=== PATIENT | female | born 1955 | race Caucasian/White ===

== ENCOUNTER 2016-12-14 18:48 | Inpatient (IN) | payer MEDICARE, MEDICAID ==
[~2016-12-14] VITALS: Ht 175.3 cm; Wt 109.0 kg
[~2016-12-14 18:48] MED LIST: ALEN70TA2 PO; ASCO250T7 PO; BISA10SU61 RC; BUPR150T12 PO; CARV6.25 PO; DOCU240C41 PO; DULO30CA50 PO; ERGO500050 PO; FERR325T39 PO; FEXO-106 PO; FLUT9.9S NS; HYDR453.3 EXT; INSLIS SUBQ; LACT10SO PO; LORA-302 PO; MAGN400O4 PO; MELA1TAB4 SL; MULT-1018 PO; MYCC EXTERNAL; NA P133E23 RC; NAPR220C16 PO; OXYC10TA8 PO; OXYC15TA73 PO; OXYC30TA77 PO; PANT40TA2 PO; POLY17PO6 PO; PROM25TA14 PO; QUET25TA73 PO; QUET50TA55 PO; SENN-133 PO; SYN75 PO; [UNRECOGNIZED DRUG - CODE] PO
--- NOTE | 2016-12-14 18:49 | ED.REPORT ---
HPI-General Illness Date of Service Dec 14, 2016 ED Provider: Bacilio Breaux DO A 61 year old female with a history of T12 paraplegia, hyperthyroidism, hypertension, UTI, muscle weakness, depression, type II diabetes, [place], ostomy bag, encephalopathy secondary to UTI, and episodes of similar symptoms is brought to the ED due to altered level of consciousness. Staff at the [facility] where the pt resides noticed this afternoon that she appeared to have a decreased level of consciousness and increased temperature. The pt has a GCS of 10 on arrival. She had a recent medication change, which staff believes may be related to the pt's symptoms. Pt is unable to provide a history. Nursing Notes Stated Complaint: ALTERED LOC Nursing Notes Reviewed: Yes Allergies: Coded Allergies: Contrast Media (Verified Allergy, Severe, 07/19/16) TAPE (Verified Allergy, Severe, 07/19/16) amoxicillin (Verified Allergy, Severe, 07/19/16) ceftriaxone (Verified Allergy, Severe, 07/19/16) cefuroxime (Verified Allergy, Severe, 07/19/16) cephalexin (Verified Allergy, Severe, 07/19/16) diazepam (Verified Allergy, Severe, 07/19/16) erythromycin base (Verified Allergy, Severe, 07/19/16) iodine (Verified Allergy, Severe, 07/19/16) metoclopramide (Verified Allergy, Severe, 07/19/16) metronidazole (Verified Allergy, Severe, 07/19/16) tizanidine (Verified Allergy, Severe, 07/19/16) Scheduled Alendronate Sodium (Fosamax) 70 Mg Tablet 70 MG PO QW Ascorbic Acid (Vitamin C) 250 Mg Tab.chew 250 MG PO BID Bupropion ER (Bupropion ER) 150 Mg Tablet.er 150 MG PO BID Carvedilol (Coreg) 6.25 Mg Tablet 6.25 MG PO BID Duloxetine (Duloxetine) 30 Mg Capsule.dr 30 MG PO DAILY Ergocalciferol (Vitamin D2) (Drisdol) 50,000 Unit Capsule 50,000 UNIT PO Q7D Ferrous Sulfate (Iron) 325 Mg Tablet 325 MG PO BID Fexofenadine (Fexofenadine) 180 Mg Tablet 180 MG PO DAILY Fluticasone Propionate (Flonase Allergy Relief) 50 Mcg/Actuation [place].susp 9.9 ML NS BID Insulin Aspart (NovoLOG U-100 Pen) 100 Unit/Ml Insuln.pen 1 SC QID Levothyroxine (Synthroid) 75 Mcg Tablet 75 MCG PO DAILY Melatonin/Pyridoxine (Melatonin Sublingual Tablet) 1 Each Tab.subl 5 MG SL HS Multivitamin (Multi Vitamin Daily) 1 Each Tablet 1 EACH PO DAILY Nystatin (Nystatin) 60 Applic/15 Gm Cream 1 APPLIC EXTERNAL BID Omeprazole (Omeprazole) 20 Mg Capsule.dr 20 MG PO DAILY Oxycodone ER (Oxycontin) 15 Mg Tab.er.12h 15 MG PO HS Oxycodone ER (Oxycontin) 30 Mg Tab.er.12h 30 MG PO QAM Polyethylene Glycol 3350 (Miralax) 17 Gm Powd.pack 17 GM PO DAILY Quetiapine Fumarate (Seroquel) 50 Mg Tablet 75 MG PO HS Sennosides (Senna) 8.6 Mg Tablet 8.6 MG PO BID Scheduled PRN Bisacodyl (Dulcolax Rectal) 10 Mg Supp.rect 10 MG RC DIRECTED PRN PRN For Constipation Dextran 70/Hypromellose/Pf (Artificial Tears Drops) 1 Each Droperette 1-2 DROP BOTH_EYES PRN dry eyes Docusate Calcium (Stool Softener) 240 Mg Capsule 240 MG PO BID PRN PRN For Constipation Hydrocortisone (Hydrocortisone) 453.6 Gm Cream..g. 1 APPLIC EXT WEEKLY PRN PRN rash Lactulose (Lactulose) 10 Gm/15 Ml Solution 45-60 ML PO BID PRN PRN For Constipation Lorazepam (Ativan) 0.5 Mg Tablet 0.5 MG PO QID PRN PRN For Anxiety Magnesium Hydroxide (Milk of Magnesia) 400 Mg/5 Ml Oral.susp 30 ML PO DIRECTED PRN PRN For Constipation Na Phos,M-B/Na Phos,Di-Ba (Fleet Enema) 133 Ml Enema 133 ML RC PRN For Constipation Naproxen Sodium (Naproxen Sodium) 220 Mg Capsule 220 MG PO BID PRN PRN For Pain Promethazine (Promethazine) 25 Mg Tablet 25 MG PO Q6H PRN PRN For Nausea Simethicone (Bicarsim Forte) 125 Mg Tablet 125-250 MG PO ACHS PRN PRN gas oxyCODONE (oxyCODONE) 10 Mg Tablet 20 MG PO QID PRN PRN For Pain General Time Seen by MD: 18:49 Chief Complaint Other (Change LOC) Hx Obtained From: EMS Arrived By: Ambulance Sudden in Onset?: No Onset Occurred: 5 - 8 hours ago Symptom Duration: Since onset Recent Healthcare: Recent doctor visit, Recent hospitalization Similar Sx Previous: Yes Past Medical History Past Medical History Notes: Full code Past Medical History T12 paraplegia hyperthyroidism UTI muscle weakness depression encephalopathy secondary to UTI Reports: Asthma, Hypertension Reports: Thyroid disease Past Surgical History Reports: Back/neck surgery Smoking History Former Smoker Social History lives at [facility] Ambulatory Status Wheelchair Review of Systems Unable to Obtain ROS Patient condition Physical Exam Vital Signs Vital Signs Date Time Temp Pulse Resp B/P Pulse Ox O2 Delivery O2 Flow Rate FiO2 12/14/16 21:21 37 65 20 147/81 98 Room Air 12/14/16 19:05 36.9 80 16 154/78 98 Room Air Initial VS: Reviewed General/Constitutional: Awake urine has large amount of sediment and cloudiness ostomy bag with dark green output Head / Eyes: Atraumatic, Normocephalic, PERRL, EOMI ENT: Atraumatic, Airway patent, Mucous membranes moist Neck: Atraumatic Respiratory / Chest: Breath sounds = bilat Cardiovascular: Heart rate NL, Regular rhythm, Heart sounds NL Abdomen: Atraumatic, Soft no obvious abdominal pain or distension Back: Atraumatic Upper Extremities Upper Extremity / MS: Atraumatic Lower Extremity / Pelvis / MS: Atraumatic, No edema Skin: Color NL, Warm, Dry 8 cm x 9 cm sacral ulcer right ischial tuberosity full thickness ulceration no bone visible good granulation tissue in wound base Neurologic: No sensory deficits Mental Status: Positive: Disoriented to place Psychiatric: Affect NL minimally responsive to commands responds to pain stimulus Interpretation & Diagnostics Lab Results Interpretation Result Diagram: 12/14/16 1900 12/14/16 1900 Test 12/14/16 19:00 White Blood Count 17.0th/mm3 (3.8-10.1) Red Blood Count 5.01mil/mm3 (3.90-5.20) Hemoglobin 13.1g/dL (12.0-15.6) Hematocrit 40.5% (35.0-46.0) Mean Corpuscular Volume 80.8fL (81-100) Mean Corpuscular Hemoglobin 26.1pg (27.0-35.0) Mean Corpuscular Hemoglobin Concent 32.3% (32.0-37.0) Red Cell Distribution Width 16.0% (12.3-15.4) Platelet Count 579bil/L (150-400) Neutrophils (%) (Auto) 82.2% (40-74) Lymphocytes (%) (Auto) 11.3% (14-46) Monocytes (%) (Auto) 5.5% (4-12) Eosinophils (%) (Auto) 0.2% (0-5) Basophils (%) (Auto) 0.2% (0-3) Hold Purple Top Tube Received (Received) Prothrombin Time 12.0sec (8.1-12.5) Prothromb Time International Ratio 1.12ratio Hold Blue Top Tube Received (Received) Urine Color Yellow (YELLOW) Urine Appearance Hazy (CLEAR,HAZY) Urine pH 6.0 (5.0-8.0) Urine Specific [place] 1.025 (1.003-1.035) Urine Protein Tracemg/dL (NEG,TRACE) Urine Glucose (UA) Negativemg/dL (NEGATIVE) Urine Ketones Tracemg/dL (NEGATIVE) Urine Occult Blood Moderate (NEGATIVE) Urine Nitrite Positive (NEGATIVE) Urine Bilirubin Negative (NEGATIVE) Urine Urobilinogen Normalmg/dL (NORMAL) Urine Leukocyte Esterase Large (NEGATIVE) Urine RBC 3-10/hpf (0-2) Urine WBC >50/hpf (0-5) Urine Epithelial Cells Moderate/hpf (NONE-MOD) Urine Crystals None seen (NONE SEEN) Urine Bacteria Many/hpf (NONE-FEW) Urine Hyaline Casts None/lpf (NONE) Urine Granular Casts None seen (NONE SEEN) Urine Waxy Casts None seen (NONE SEEN) Urine Red Blood Cell Casts None seen (NONE SEEN) Urine White Blood Cell Casts None seen (NONE SEEN) Urine Mucus None seen (None Seen) Urine Trichomonas None seen (NONE SEEN) Urine Yeast None (NONE SEEN) Urinalysis Comment None Urine Culture Reflexed Indicated Hold Urine Received (Received) Sodium Level 147mEq/L (134-144) Potassium Level 3.9mEq/L (3.5-5.2) Chloride Level 105mEq/L (97-108) Carbon Dioxide Level 21mmol/L (18-29) Blood Urea Nitrogen 34mg/dL (8-27) Creatinine 1.43mg/dL (0.57-1.00) Estimat Glomerular Filtration Rate 53mL/min (>59) Glucose Level 152mg/dL (60-99) Lactic Acid Level 1.4mmol/L (0.4-2.0) Calcium Level 9.9mg/dL (8.5-10.1) Total Bilirubin 0.3mg/dL (0.0-1.2) Aspartate Amino Transf (AST/SGOT) 17U/L (0-50) Alanine Aminotransferase (ALT/SGPT) 11U/L (0-32) Alkaline Phosphatase 125U/L (25-165) Total Protein 8.5g/dL (6.4-8.4) Albumin 3.8g/dL (3.4-5.0) Hold [place] Top Tube Received (Received) Hold [place] Top Tube Received (Received) Alcohol, Quantitative < 10mg/dL (0-10) ECG Interpretation ECG Interpretation: normal sinus rhythm with a rate of [address] changes no change from previous dated 07/19/2016 Time: 20:00 Interpreted by: ED physician X-Ray Chest Interpretation Chest Xray Interpretation: IMPRESSION: Moderate CHF versus atypical pneumonia. Dictated by: Karrie Kim M.D. on 12/14/2016 at 20:08 Approved by: Karrie Kim M.D. on 12/14/2016 at 20:09 Interpretation / Wet Read by: Interpret - Radiologist CT Head Interpretation IMPRESSION: 1. Volume loss and small vessel ischemic disease. 2. No acute intracranial abnormality. Dictated by: Karrie Kim M.D. on 12/14/2016 at 20:09 Approved by: Karrie Kim M.D. on 12/14/2016 at 20:10 Interpretation / Wet Read by: Interpret - Radiologist Re-Eval/Medical Decision Med Decision/Clinical Course 61-year-old female with a complex medical history including type II diabetes, CKD, T12 paraplegia, a large right-sided decubitus ulcer over the right ischial tuberosity and recurrent UTIs related to a chronic indwelling suprapubic catheter which lead to acute encephalopathy presents with acute encephalopathy from [facility] in [place]. UA is consistent with a UTI. I was unable to obtain a history from her due to her encephalopathy. She has however awake and will respond to commands with urging. She is on quite a few medications that could contribute to encephalopathy, however given her history of a very similar presentation just 3 months ago I suspect it is all related to UTI. She is a full code according to her paperwork. She has no abnormalities of her vital signs here that would qualify her for sepsis. She will be admitted to hospitalist service. I started Levaquin and vancomycin as this is what was used at previous hospitalization and worked well in light of her allergies. Source of Hx: Old records Time of Eval: 20:48 Patient Status: Condition improved Re-Evaluation/Progress Note: Pt rechecked, who is stable. She is informed of the need for admission. Consultation : Referral / Consult Name: Maggy Belle DO Consulted With: Hospitalist Call Returned at: 21:07 [place] Hardware Installer: Agrees with eval, Agrees with plan, Accepts admit Note: Spoke with Dr. Belle, hospitalist, regarding pt's case. Dr. Belle agrees with the evaluation and agrees to admit the pt. Counseled Regarding: Diagnosis, Lab results, Need for admission Discharge & Departure Primary Impression: UTI (urinary tract infection) Urinary tract infection type: site unspecified Hematuria presence: without hematuria Qualified Code: N39.0 - Urinary tract infection, site not specified Additional Impressions: Acute encephalopathy Leukocytosis Leukocytosis type: unspecified Qualified Code: D72.829 - Elevated white blood cell count, unspecified Disposition: ADMITTED TO HOSPITAL Discharge Condition All VS Reviewed: Yes Condition: Stable Referrals: Abdirizak Nieto MD (PCP) Jacquie Attestation Portions of this note were transcribed by Romeo Monaco I, Dr. Breaux personally performed the history, physical exam and medical decision-making; I reviewed and confirmed the accuracy of the information in the transcribed note. Signed by: Jacquie Reyes, 12/14/16 and 21:53. copies to: Abdirizak Nieto MD, Gary R DO Dec 14, 2016 18:49 ROMEO MONACO Dec 14, 2016 19:40
[2016-12-14 19:05] VITALS: BP 154/78; PULSE 80; RESP 16; O2SAT 98
[2016-12-14 19:31] LABS: BASOPHILS % (AUTO) 0.2 % (0-3); EOSINOPHILS % (AUTO) 0.2 % (0-5); MONOCYTES % (AUTO) 5.5 % (4-12); Mean Corpuscular Hemoglobin 26.1 pg (27.0-35.0); Mean Corpuscular Volume 80.8 fL (81-100); NEUTROPHILS % (AUTO) 82.2 % (40-74); Platelet Count 579 bil/L (150-400)
[2016-12-14 19:34] LABS: INR 1.12 ratio
[2016-12-14 19:38] LABS: APPEARANCE,URINE HAZY (CLEAR,HAZY); COLOR,URINE YELLOW (YELLOW); OCCULT BLOOD,URINE MODERATE (NEGATIVE); UROBILINOGEN,URINE NORMAL (NORMAL)
--- NOTE | 2016-12-14 20:11 | DRSVH ---
PROCEDURE: X-RAY CHEST ONE VIEW, PORTABLE ([id number]) INDICATIONS: altered mental status TECHNIQUE: One view of the chest was acquired. COMPARISON: [facility], CR, XR CHEST 1VW (PORTABLE), 07[facility]19[facility]2016, 16:13[facility]UTE [facility] 3VW, 07/22/2016, 15:41. FINDINGS: Surgical changes and devices: Thoracolumbar fusion hardware is present. Lungs and pleura: No pleural effusions or pneumothorax. Moderate diffuse interstitial pulmonary opac ity is present. Mediastinum: Mediastinal contours appear normal. Heart size is enlarged. Bones and chest wall: No suspicious bony lesions. Overlying soft tissues appear unremarkable. IMPRESSION: Moderate CHF versus atypical pneumonia. Dictated by: Karrie Kim M.D. on 12/14/2016 at 20:08 Approved by: Karrie Kim M.D. on 12/14/2016 at 20:09
--- NOTE | 2016-12-14 20:11 | DRSVH ---
PROCEDURE: CT BRAIN WITHOUT CONTRAST ([id number]) INDICATIONS: ams TECHNIQUE: Noncontrast 4.5 mm thick angled axial sections acquired from the foramen magnum to the vertex, with c oronal reformats. COMPARISON: [facility], MR, MR BRAIN WO CON, 04/06/2016, 22:07. FINDINGS: Image quality: Excellent. CSF spaces: Basal cisterns are patent. No extra-axial fluid collections. The ventricles are symmet yolande in size and shape. Brain: No intracranial bleeds or masses. There is cerebral volume loss for age, with resultant vent ricular and sulcal prominence. There are periventricular and deep white matter chronic small vessel ischemic changes. There is intracranial internal carotid artery atherosclerosis. Skull and face: Calvarium and visualized facial bones appear intact, without suspicious lesions. Sinuses: Visualized sinuses and mastoids are clear. IMPRESSION: 1. Volume loss and small vessel ischemic disease. 2. No acute intracranial abnormality. Dictated by: Karrie Kim M.D. on 12/14/2016 at 20:09 Approved by: Karrie Kim M.D. on 12/14/2016 at 20:10
[2016-12-14] MEDS ORDERED: DEXT1DRO8 BOTH_EYES (20:37)
[2016-12-14] MEDS ORDERED: NA P133E23 RC (20:37)
[2016-12-14] MEDS ORDERED: QUET50TA PO (20:37)
[2016-12-14] MEDS ORDERED: HYDR28OI2 TP (20:37)
[2016-12-14] MEDS ORDERED: POLY17PO6 PO (20:37)
[2016-12-14] MEDS ORDERED: BISA10SU61 RC (20:37)
[2016-12-14] MEDS ORDERED: levoFLOXacin Inj 750 MG in IV Premix 1 EACH IV ONE (20:45)
[2016-12-14] MEDS ORDERED: INSU100I SC (20:46)
[2016-12-14] MEDS ORDERED: OMEP20CA11 PO (20:46)
[2016-12-14] MEDS ORDERED: Vancomycin Dose per Pharmacist XX ONE (21:09)
[2016-12-14] MEDS ORDERED: Polyethylene Glycol (PEG) 17 Gm Powder PO PRN (21:10)
[2016-12-14] MEDS ORDERED: Ondansetron 2 mg/mL 2 mL Inj IVPUSH PRN (21:10)
[2016-12-14] MEDS ORDERED: Alum-Mag Hydrox-Simeth 30 mL Suspension PO PRN (21:10)
[2016-12-14 21:21] VITALS: BP 147/81; PULSE 65; RESP 20; O2SAT 98
[2016-12-14] MEDS ORDERED: Glucose 40% Oral Gel 15 Gm Tube PO PRN (23:05)
--- NOTE | 2016-12-14 23:07 | PCM.HPMED ---
Subjective Date of Service Dec 14, 2016 Primary Provider: Admitting Physician: Maggy Belle DO Primary Care Physician: Abdirizak Nieto MD Attending Physician: Maggy Belle DO Admit Status: From the Emergency Department, Remote Telemetry Chief Complaint: Altered mental status History of Present Illness: A 61 year old female with a history of T12 paraplegia, hyperthyroidism, hypertension, UTI, muscle weakness, depression, type II diabetes, obesity, Rojas , ostomy bag, encephalopathy secondary to UTI, and episodes of similar symptoms is brought to the ED from [facility] due to altered level of consciousness and elevated temperature noticed by staff. The pt has a GCS of 10 on arrival. Per ED records patient had a recent medication change, which staff believes may be related to the pt's symptoms. Pt is unable to provide a history. In the ED, patient afebrile at 36.9, HR 80, RR 16, BP 154/78, 98% saturation on RA. UA positive for nitrate and leukocyte esterase, with WBC >50. Lactic acid 1.4. Patient was started on Vancomycin and Levaquin and admitted for further treatment and management. Review of Systems: Unable to obtain due to patient not being coherent. Allergies Coded Allergies: Contrast Media (Verified Allergy, Severe, 07/19/16) TAPE (Verified Allergy, Severe, 07/19/16) amoxicillin (Verified Allergy, Severe, 07/19/16) ceftriaxone (Verified Allergy, Severe, 07/19/16) cefuroxime (Verified Allergy, Severe, 07/19/16) cephalexin (Verified Allergy, Severe, 07/19/16) diazepam (Verified Allergy, Severe, 07/19/16) erythromycin base (Verified Allergy, Severe, 07/19/16) iodine (Verified Allergy, Severe, 07/19/16) metoclopramide (Verified Allergy, Severe, 07/19/16) metronidazole (Verified Allergy, Severe, 07/19/16) tizanidine (Verified Allergy, Severe, 07/19/16) ciprofloxacin (Verified Allergy, Unknown, 12/15/16) Home Medications Scheduled Alendronate Sodium (Fosamax) 70 Mg Tablet 70 MG PO QW Ascorbic Acid (Vitamin C) 250 Mg Tab.chew 250 MG PO BID Bupropion ER (Bupropion ER) 150 Mg Tablet.er 150 MG PO BID Carvedilol (Coreg) 6.25 Mg Tablet 6.25 MG PO BID Duloxetine (Duloxetine) 30 Mg Capsule.dr 30 MG PO DAILY Ergocalciferol (Vitamin D2) (Drisdol) 50,000 Unit Capsule 50,000 UNIT PO Q7D Ferrous Sulfate (Iron) 325 Mg Tablet 325 MG PO BID Fexofenadine (Fexofenadine) 180 Mg Tablet 180 MG PO DAILY Fluticasone Propionate (Flonase Allergy Relief) 50 Mcg/Actuation [place].susp 9.9 ML NS BID Insulin Aspart (NovoLOG U-100 Pen) 100 Unit/Ml Insuln.pen 1 SC QID Levothyroxine (Synthroid) 75 Mcg Tablet 75 MCG PO DAILY Melatonin/Pyridoxine (Melatonin Sublingual Tablet) 1 Each Tab.subl 5 MG SL HS Multivitamin (Multi Vitamin Daily) 1 Each Tablet 1 EACH PO DAILY Nystatin (Nystatin) 60 Applic/15 Gm Cream 1 APPLIC EXTERNAL BID Omeprazole (Omeprazole) 20 Mg Capsule.dr 20 MG PO DAILY Oxycodone ER (Oxycontin) 15 Mg Tab.er.12h 15 MG PO HS Oxycodone ER (Oxycontin) 30 Mg Tab.er.12h 30 MG PO QAM Polyethylene Glycol 3350 (Miralax) 17 Gm Powd.pack 17 GM PO DAILY Quetiapine Fumarate (Seroquel) 50 Mg Tablet 75 MG PO HS Sennosides (Senna) 8.6 Mg Tablet 8.6 MG PO BID Scheduled PRN Bisacodyl (Dulcolax Rectal) 10 Mg Supp.rect 10 MG RC DIRECTED PRN PRN For Constipation Dextran 70/Hypromellose/Pf (Artificial Tears Drops) 1 Each Droperette 1-2 DROP BOTH_EYES PRN dry eyes Docusate Calcium (Stool Softener) 240 Mg Capsule 240 MG PO BID PRN PRN For Constipation Hydrocortisone (Hydrocortisone) 453.6 Gm Cream..g. 1 APPLIC EXT WEEKLY PRN PRN rash Lactulose (Lactulose) 10 Gm/15 Ml Solution 45-60 ML PO BID PRN PRN For Constipation Lorazepam (Ativan) 0.5 Mg Tablet 0.5 MG PO QID PRN PRN For Anxiety Magnesium Hydroxide (Milk of Magnesia) 400 Mg/5 Ml Oral.susp 30 ML PO DIRECTED PRN PRN For Constipation Na Phos,M-B/Na Phos,Di-Ba (Fleet Enema) 133 Ml Enema 133 ML RC PRN For Constipation Naproxen Sodium (Naproxen Sodium) 220 Mg Capsule 220 MG PO BID PRN PRN For Pain Promethazine (Promethazine) 25 Mg Tablet 25 MG PO Q6H PRN PRN For Nausea Simethicone (Bicarsim Forte) 125 Mg Tablet 125-250 MG PO ACHS PRN PRN gas oxyCODONE (oxyCODONE) 10 Mg Tablet 20 MG PO QID PRN PRN For Pain PMH T12 paraplegia with muscle weakness hypothyroidism UTIs depression encephalopathy secondary to UTI Asthma Hypertension Surgical History neck and back surgery ostomy Family History Unable to obtain d/t confusion Social History Hx Alcohol Use: No Hx Substance Use: No Smoking Status: Former Smoker Living Arrangement: Longterm Facility Exam Vital Signs Vital Sign - Last Date Time Temp Pulse Resp B/P Pulse Ox O2 Delivery O2 Flow Rate FiO2 12/14/16 21:21 37 65 20 147/81 98 Room Air Exam GEN: Morbidly obese female in mild distress, alert, not oriented to time or place, responds to name and some basic commands HEENT: NC/AT, sluggish dilated pupils, sclera anicteric, does not track objects , moist mucous membranes Neck: wide and thick, no tenderness to passive ROM CV: RRR, no murmurs, rubs or gallops appreciated, distant heart sounds Lungs: CTAB, normal breath sounds bilaterally, poor inspiratory effort ADB: soft, obese, non-tender, non-distended, ostomy bag on lower right with stool in bag, non-irritated, suprapubic rojas catheter in place draining cloudy urine Skin: Warm, dry and intact. large area (8x9cm) of right sacral ulcer with serous discharge, appears superficial with granulation tissue seen, mid to low back with well healed surgical scars at midline Neuro: difficult to assess, loss of sensation to legs, feet Lab and Diagnostics Result Diagram: 12/14/16189912/14/161899 X-Rays, CTs and MRIs Date of Service: 12/14/161935 PROCEDURE: X-RAY CHEST ONE VIEW, PORTABLE ([id number]) INDICATIONS: altered mental status IMPRESSION: Moderate CHF versus atypical pneumonia. Dictated by: Karrie Kim M.D. on 12/14/2016 at 20:08 Date of Service: 12/14/161935 PROCEDURE: CT BRAIN WITHOUT CONTRAST ([id number]) INDICATIONS: ams IMPRESSION: 1. Volume loss and small vessel ischemic disease. 2. No acute intracranial abnormality. Dictated by: Karrie Kim M.D. on 12/14/2016 at 20:09 12-lead ECG ECG Interpretation: normal sinus rhythm with a rate of [address] changes no change from previous dated 07/19/2016 Time: 20:00 Interpreted by: ED physician Assessment & Plan Patient is a 61 year old female with a history of T12 paraplegia, hyperthyroidism, hypertension, UTI, muscle weakness, depression, type II diabetes, Rojas, ostomy bag, encephalopathy secondary to UTI, and episodes of similar symptoms is brought to the ED due to altered level of consciousness. Found to have UTI, admitted for further treatment and management. Altered mental status secondary to UTI, present on admission. Acute. - CT negative for any acute process - telemetry - BCx and UCx pending UTI, present on admission. Acute. - Started on Vancomycin and Levaquin (MRSA and pseudomonas coverage due to suprapubic cath and from SNF) - UCx pending - replace suprapubic cath and send tip for cx Large sacral ulcer - [facility] - Wound eval ordered Chronic conditions: Type II diabetes - low dose correctional scale insulin protocol - A1c pending CHF - continue home dose carvedilol Hypothyroidism - continue home dose levothyroxine Osteoporosis - continue home med GERD - continue home dose omeprazole on PRN basis Depression - continue home med Bupropion Allergic rhinitis - fexofenadine and Flonase held Insomnia - home dose melatonin sublingual and seroquel PRN T12 paraplegia with ostomy - Wound care Chronic pain - home dose Duloxetine and scheduled Oxycontine continued to avoid opiate withdrawal - PRN opiate held Chronic constipation - home dose Senna BID, MOM continued PRN PRNs - Acetaminophen as needed for mild pain/fever/headache - Bowel regimen as needed - Antiemetic as needed Patient admitted under inpatient status with expected length of stay greater than 2 midnights due to severity of presenting symptoms, risk of adverse event, and complexity of treatment plan. DVT: heparin subQ GI: on PPI CODE: FULL Pain Evaluation: Adequate Pain Control GI Prophylaxis: Proton Pump Inhibitor VTE Prophylaxis: Sub-Q Heparin (Unfractionated) Resuscitation Status: CPR: Attempt Resuscitation Attending Statement The patient was seen and examined together with house staff on 12/14/2016 and I agree with the history, exam and plan as outlined in the note above. Laila Castaneda DO Dec 14, 2016 22:09 Maggy Belle DO Dec 15, 2016 04:40
--- NOTE | 2016-12-14 23:08 | NUR ---
Admit done Admit done through [facility] and [facility] from facility since pt unable to answer any questions. Med red completed.
[2016-12-14 23:17] VITALS: BP 162/80; PULSE 57; RESP 16; O2SAT 100
[2016-12-14] MEDS ORDERED: Magnesium Hydroxide 355 mL Oral Suspension PO PRN (23:20)
[2016-12-14 23:22] VITALS: PULSE 71
--- NOTE | 2016-12-15 00:09 | PCM.CONPHA ---
Subjective Date of Service: Dec 15, 2016 Requesting Provider: aLila Castaneda DO Reason for Pharmacy Consult: Vancomycin Dosing Objective Vital Signs Date Time Temp Pulse Resp B/P Pulse Ox O2 Delivery O2 Flow Rate FiO2 12/14/16 23:22 71 12/14/16 23:17 37.7 57 16 162/80 100 Room Air 12/14/16 23:04 37 61 18 136/79 98 Room Air 12/14/16 21:21 37 65 20 147/81 98 Room Air 12/14/16 19:05 36.9 80 16 154/78 98 Room Air Intake and Output 12/13/16 12/14/16 12/15/16 00:00 00:00 00:00 Intake Total 650 ml Balance 650 ml Weight (Kilograms): 107.100 Height (Feet): 5 Height (Inches): 2.00 Test 12/14/16 19:00 White Blood Count 17.0th/mm3 (3.8-10.1) Red Blood Count 5.01mil/mm3 (3.90-5.20) Hemoglobin 13.1g/dL (12.0-15.6) Hematocrit 40.5% (35.0-46.0) Mean Corpuscular Volume 80.8fL (81-100) Mean Corpuscular Hemoglobin 26.1pg (27.0-35.0) Mean Corpuscular Hemoglobin Concent 32.3% (32.0-37.0) Red Cell Distribution Width 16.0% (12.3-15.4) Platelet Count 579bil/L (150-400) Neutrophils (%) (Auto) 82.2% (40-74) Lymphocytes (%) (Auto) 11.3% (14-46) Monocytes (%) (Auto) 5.5% (4-12) Eosinophils (%) (Auto) 0.2% (0-5) Basophils (%) (Auto) 0.2% (0-3) Hold Purple Top Tube Received (Received) Prothrombin Time 12.0sec (8.1-12.5) Prothromb Time International Ratio 1.12ratio Hold Blue Top Tube Received (Received) Urine Color Yellow (YELLOW) Urine Appearance Hazy (CLEAR,HAZY) Urine pH 6.0 (5.0-8.0) Urine Specific [place] 1.025 (1.003-1.035) Urine Protein Tracemg/dL (NEG,TRACE) Urine Glucose (UA) Negativemg/dL (NEGATIVE) Urine Ketones Tracemg/dL (NEGATIVE) Urine Occult Blood Moderate (NEGATIVE) Urine Nitrite Positive (NEGATIVE) Urine Bilirubin Negative (NEGATIVE) Urine Urobilinogen Normalmg/dL (NORMAL) Urine Leukocyte Esterase Large (NEGATIVE) Urine RBC 3-10/hpf (0-2) Urine WBC >50/hpf (0-5) Urine Epithelial Cells Moderate/hpf (NONE-MOD) Urine Crystals None seen (NONE SEEN) Urine Bacteria Many/hpf (NONE-FEW) Urine Hyaline Casts None/lpf (NONE) Urine Granular Casts None seen (NONE SEEN) Urine Waxy Casts None seen (NONE SEEN) Urine Red Blood Cell Casts None seen (NONE SEEN) Urine White Blood Cell Casts None seen (NONE SEEN) Urine Mucus None seen (None Seen) Urine Trichomonas None seen (NONE SEEN) Urine Yeast None (NONE SEEN) Urinalysis Comment None Urine Culture Reflexed Indicated Hold Urine Received (Received) Sodium Level 147mEq/L (134-144) Potassium Level 3.9mEq/L (3.5-5.2) Chloride Level 105mEq/L (97-108) Carbon Dioxide Level 21mmol/L (18-29) Blood Urea Nitrogen 34mg/dL (8-27) Creatinine 1.43mg/dL (0.57-1.00) Estimat Glomerular Filtration Rate 53mL/min (>59) Glucose Level 152mg/dL (60-99) Lactic Acid Level 1.4mmol/L (0.4-2.0) Calcium Level 9.9mg/dL (8.5-10.1) Total Bilirubin 0.3mg/dL (0.0-1.2) Aspartate Amino Transf (AST/SGOT) 17U/L (0-50) Alanine Aminotransferase (ALT/SGPT) 11U/L (0-32) Alkaline Phosphatase 125U/L (25-165) Total Protein 8.5g/dL (6.4-8.4) Albumin 3.8g/dL (3.4-5.0) Hold [place] Top Tube Received (Received) Hold Ibarra Top Tube Received (Received) Alcohol, Quantitative < 10mg/dL (0-10) Assessment/Plan Assessment/Plan A: * Vancomycin dosing by pharmacy for 61 y/o woman with UTI * She is also being started on Levaquin * Estimated CrCl is 54 mL/min (Cockcroft & Gault using AdjBW) * Estimated vancomycin half-life is 14 hours and estimated Vd is 76 liters P: * Starting vancomycin 2000 mg IV every 24 hours * This dose is estimated to result in a trough of about 12 mcg/mL * Target vancomycin trough range of 10 - 15 mcg/mL for now * Drawing a trough level prior to the third dose of vancomycin Thank you. Pharmacy will continue to follow. Rachel Shin, PharmD Rachel Shin Dec 15, 2016 00:09
[2016-12-15] MEDS: Heparin 5,000 Unit/mL Inj SUBQ SCH ×3 (00:24→17:30)
[2016-12-15] MEDS ORDERED: MeTOProlol 1 mg/mL 5 mL Inj IVPUSH PRN (00:25)
[2016-12-15] MEDS ORDERED: 0.9% Sodium Chloride 250 ML ONE (00:31)
[2016-12-15] MEDS: Acetaminophen IV 1,000 MG in IV Premix 1 EACH IV PRN ×2 (01:06→12:24)
[2016-12-15 02:18] VITALS: BP 142/70; PULSE 56; RESP 16; O2SAT 99
--- NOTE | 2016-12-15 03:17 | NUR ---
ARRIVAL TO [facility] Pt arrived to [facility] from ER in P500 bed. Pt placed on remote telemetry, data communications technician notified. Pt minimally responsive, opens eyes, non-verbal. Difficult to keep pts attention. VS obtained. Calmoseptine applied to buttocks and sacral area. Dressing to Right ischial changed/reinforced. Wound protocol already activated. Continue to monitor. Call light in reach. Bed alarm on. Intentional rounding.
[2016-12-15 05:38] LABS: BASOPHILS % (AUTO) 0.2 % (0-3); EOSINOPHILS % (AUTO) 0.1 % (0-5); MONOCYTES % (AUTO) 7.9 % (4-12); Mean Corpuscular Hemoglobin 26.2 pg (27.0-35.0); Mean Corpuscular Volume 82.4 fL (81-100); NEUTROPHILS % (AUTO) 80.5 % (40-74); Platelet Count 463 bil/L (150-400)
[2016-12-15] MEDS: Insulin LISPRO 300 Unit/3 mL Inj SUBQ SCH ×4 (08:00→22:00)
[2016-12-15] MEDS: Vancomycin Dose per Pharmacist XX SCH (08:30)
[2016-12-15] MEDS: oxyCODONE ER 10 mg ER12 Tablet PO SCH ×2 (08:45→20:44)
[2016-12-15] MEDS: buPROPion SR 150 mg ER12 Tablet PO SCH ×2 (08:46→20:26)
[2016-12-15] MEDS: DULoxetine 30 mg DR Capsule PO SCH (08:46)
[2016-12-15 08:57] VITALS: PULSE 60
[2016-12-15 09:39] VITALS: BP 163/79; PULSE 59; RESP 20; O2SAT 100
--- NOTE | 2016-12-15 09:41 | PCM.PNMED ---
Subjective Date of Service Dec 15, 2016 Subjective Patient reports she just "feels like crap" all over this morning, but denies any specific symptoms. Denies any CP or SOB. No events overnight. Exam Vital Signs Vital Sign - Last Date Time Temp Pulse Resp B/P Pulse Ox O2 Delivery O2 Flow Rate FiO2 12/15/16 02:18 36.9 56 16 142/70 99 Room Air Intake and Output 12/14/16 12/14/16 12/15/16 Cumulative From/Thru 15:00 23:00 07:00 12/14/16 19:05 - 12/15/16 06:30 Intake Total 650 ml 320 ml 970 ml Output Total 700 ml 700 ml Balance 650 ml -380 ml 270 ml Intake Oral 200 ml 200 ml IV Total 650 ml 120 ml 770 ml Output Urine Total 700 ml 700 ml Stool Total 0 ml 0 ml Exam GEN: Morbidly obese female in mild distress, alert although not very conversive , responds mostly to yes or no questions HEENT: Sclera anicteric, moist mucous membranes Neck: Soft, NT CV: RRR, with soft systolic murmur Lungs: CTAB, normal breath sounds bilaterally, poor inspiratory effort ADB: soft, obese, non-tender, non-distended, ostomy bag on lower right with stool in bag, non-irritated, suprapubic rojas catheter in place draining cloudy urine Skin: Warm, dry and intact. sacral ulcer covered in dressing. Neuro: difficult to assess, loss of sensation to legs, feet IVs and Medications Medications Reviewed: Medications were reviewed in detail Lab and Diagnostics Result Diagram: 12/15/16 0505 12/15/16 0505 X-Rays, CTs and MRIs Date of Service: 12/14/161935 PROCEDURE: X-RAY CHEST ONE VIEW, PORTABLE ([id number]) INDICATIONS: altered mental status IMPRESSION: Moderate CHF versus atypical pneumonia. Dictated by: Karrie Kim M.D. on 12/14/2016 at 20:08 Date of Service: 12/14/161935 PROCEDURE: CT BRAIN WITHOUT CONTRAST ([id number]) INDICATIONS: ams IMPRESSION: 1. Volume loss and small vessel ischemic disease. 2. No acute intracranial abnormality. Dictated by: Karrie Kim M.D. on 12/14/2016 at 20:09 12-lead ECG ECG Interpretation: normal sinus rhythm with a rate of [address] changes no change from previous dated 07/19/2016 Time: 20:00 Interpreted by: ED physician Assessment & Plan Patient is a 61 year old female with a history of T12 paraplegia, hyperthyroidism, hypertension, UTI, muscle weakness, depression, type II diabetes, Rojas, ostomy bag, encephalopathy secondary to UTI, and episodes of similar symptoms is brought to the ED due to altered level of consciousness. Found to have UTI, admitted for further treatment and management. Altered mental status secondary to UTI, present on admission. Acute. - Likely due to acute CAUTI, but pneumonia also possible - CT brain negative for any acute process - telemetry - BCx and UCx pending, Viral pcr pending Will obtain CT chest to evaluate for possible pneumonia since chest xray was ambivalent - Swallow eval pending. UTI, present on admission. Acute. - Started on IV Vancomycin and Levaquin on admit 12/15 - Tailor ABx as cultures return - UCx pending - replace suprapubic cath and send tip for cx -Will d/c Levaquin and switch to PO Ciprofloxacin for better Gram neg coverage. Patient is allergic to multiple Beta Lactams unfortunately. - Will consult ID on Saturday if patient not clinically better. Pharmacy requires ID consultation to start Meropenem. Large sacral ulcer - [facility] - Inpt Wound eval ordered for sacral ulcer and ostomy care - Continue Q2h turns for offloading - Continue patient's home pain medication regimen Chronic conditions POA: Type II diabetes - low dose correctional scale insulin protocol - A1c pending - Sugars stable CHF - continue home dose carvedilol - Stable CKD - Cr 1.4 on admit, per patient's baseline Hypothyroidism - continue home dose levothyroxine Osteoporosis - continue home med GERD - continue home dose omeprazole Depression - continue home med Bupropion Allergic rhinitis - fexofenadine and Flonase held Insomnia - home dose melatonin sublingual and seroquel PRN T12 paraplegia with ostomy - Wound care Chronic pain - home dose Duloxetine and scheduled Oxycontine continued to avoid opiate withdrawal - PRN opiate held Chronic constipation - home dose Senna BID, MOM continued PRN Obesity, BMI 35.5 - With sacral ulcers and increased BMI, will require specialized bed PRNs - Acetaminophen as needed for mild pain/fever/headache - Bowel regimen as needed - Antiemetic as needed DVT: heparin subQ GI: on PPI CODE: FULL Dispo: Will require 2-3 more days for workup and treatment. Pain Evaluation: Adequate Pain Control GI Prophylaxis: Proton Pump Inhibitor VTE Prophylaxis: Sub-Q Heparin (Unfractionated) Resuscitation Status: CPR: Attempt Resuscitation Attending Statement The patient was seen and examined together with Dr. Huynh on 12/15/2016 and I agree with the findings, assessment and plan as stated above. David Huynh DO Dec 15, 2016 06:55 Yong Santiago MD Dec 16, 2016 13:08
--- NOTE | 2016-12-15 10:51 | NUR ---
Evaluation completed. Please go to "Notes" then click on "Assessments and Notes" (bottom left corner of screen). Then select appropriate discipline tab on top of screen.
--- NOTE | 2016-12-15 12:21 | NUR ---
NUTRITION ASSESSMENT: ASSESS: 61 YO female transferred from [facility] due to altered level of consciousness and elevated temperature noticed by staff due to UTI on admission. The patient also has a large sacral ulcer, followed at [facility]. Consult ordered; evaluation pending. Speech Therapy advanced her diet to dysphagia mechanical, nectar thick liquids. PO intake not yet recorded. Code status: full. PMHX: Septic encephalopathy, asthma, HTN, T12 paraplegia with muscle weakness, UTI's, colostomy, depression, hypothyroid, T2DM, HTN. LABS: Reviewed. BUN 33, Cr 1.40, Glu 136. MEDS:Reviewed. Insulin, lopressor. GI: Urostomy, colostomy. SKIN: Large sacral ulcer noted; followed by [facility]. WT:109 kg, BMI 35.0 kg/m2, IBW 61g DIET: Dysphagia mechanical, nectar thick liquids. PO intake not recorded. EST. NEEDS: paraplegia, BMI (-7% for paraplegia) Calories: 2060-2265kcal/day (20-22kcal/kg) Protein: 70-87g/day (1.2-1.5g/kg IBW) NUTRITION DIAGNOSIS: 1)Increased nutrient needs due to acute on chronic wounds, as evidenced by outpatient status at [facility]. 2)Chewing / swallowing difficulties related to paraplegia, as evidenced by requirement for modified diet texture, per ST order. NUTRITION INTERVENTION: 1)Will add nectar thick Glucerna, supplement for diabetes management, to lunch and dinner trays. MONITOR / EVAL: Diet advance / tolerance, PO intake, wound evaluation, nutritional status, wounds. Follow up per moderate nutrition risk guidelines.
[2016-12-15] MEDS: 0.9% Sodium Chloride 1,000 ML IV SCH (12:22)
--- NOTE | 2016-12-15 12:27 | DRSVH ---
PROCEDURE: CT CHEST WITHOUT CONTRAST ([id number]) INDICATIONS: SHORTNESS OF BREATH TECHNIQUE: Noncontrast 5 mm thick sections acquired from the pulmonary apices to the posterior costophrenic angl es. 7 mm thick coronal and sagittal MIP reformats were then acquired. For radiation dose reduction, the following was used: automated exposure control, adjustment of mA and/or kV according to patient size. COMPARISON: [facility], CR, XR CHEST 1VW (PORTABLE), 12/14/2016, 19:38. [facility], CT, CT CHEST WO CON, 04/09/2016, 15:26. FINDINGS: Image quality: Excellent. Lungs and pleura: Bibasilar atelectasis. No acute air space opacities. No pleural effusions or pneu mothorax. Central and peripheral airways are patent and normal in caliber. Mediastinum: Heart size is normal. No pericardial effusion. Mild coronary artery calcification con sistent with atherosclerosis. No mediastinal adenopathy by size criteria. Thoracic aorta and central pulmonary arteries are normal in size. Esophagus is normal in caliber. Small hiatal hernia. Bones and chest wall: Old left 10th rib deformity. There are postsurgical changes in lower thoracic and upper lumbar spine. No suspicious bony lesions. No vertebral body compression fractures. No axi llary or supraclavicular adenopathy by size criteria. The left thyroid lobe is enlarged. Severe rig ht shoulder joint degeneration. Abdomen: Visualized upper abdominal solid organs and bowel loops appear normal in the absence of con trast. IMPRESSION: 1. No acute cardiopulmonary process. 2. Bibasilar atelectasis. 3. Left thyroid nodule. Recommend thyroid ultrasound for followup. Dictated by: Marysol Carr M.D. on 12/15/2016 at 12:21 Approved by: Marysol Carr M.D. on 12/15/2016 at 12:26
--- NOTE | 2016-12-15 13:26 | NUR ---
Barclay/dressing change/fever Supra-pubic lia removed and replaced, tip sent to be cultured for possible source of infection. Dressing on R buttock removed and replaced. Pt tolerated well. IV Tylenol given for slight fever. Will continue to monitor.
[2016-12-15 14:22] VITALS: BP 146/81; PULSE 91; RESP 18; O2SAT 99
--- NOTE | 2016-12-15 15:46 | NUR ---
Social Work-initial assessment: Data:See initial assessment. Pt is a 61 y/o female who was admitted on 12/14/16 for AMS and UTI per H&P. Pt's insurance is [facility] and [facility] supp. EMR Reviewed. ERICA met with pt at bedside to discuss discharge planning, SW role explained. 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 SW provided pt with phone number and plan. ERICA spoke with Shantel admissions at [facility] who confirms they can accept back with Dr. Nieto to follow. Paperwork in the chart. SW will continue to follow. Assessment:Pt who resides at [facility]. Plan:Pt to discharge back to [facility] when medically stable with Dr. Nieto to follow. Paperwork in the chart. ERICA will continue to follow. JUNITO Landurm Addendum: 12/15/16 at 1550 by VIVI MAKI Amended: Links added.
[2016-12-15] MEDS ORDERED: levoFLOXacin 750 mg Tablet PO ONE (19:50)
[2016-12-15 20:00] VITALS: PULSE 63; PULSE 64
[2016-12-15 20:14] VITALS: BP 149/77; PULSE 58; RESP 18; O2SAT 100
[2016-12-15] MEDS ORDERED: levoFLOXacin Inj 750 MG in IV Premix 1 EACH IV SCH (20:30)
[2016-12-16] VITALS (8 sets, daily range): BP systolic 127–145; BP diastolic 75–83; PULSE 62–84; RESP 18; O2SAT 98–100
[2016-12-16] MEDS ORDERED: LORazepam 0.5 mg Tablet PO ONE (00:40)
[2016-12-16] MEDS: Heparin 5,000 Unit/mL Inj SUBQ SCH ×3 (01:19→17:17)
--- NOTE | 2016-12-16 05:11 | NUR ---
Noc/Sleep Pt complains of not able to fall asleep even with melatonin. MD was notified and ordered Lorazepam to aid in sleep. Pt denies chest pain,sob, n/v or abd discomfort. HS meds and IV ABx administered as scheduled. Hourly rounding done. Pt has slept most of the night.
[2016-12-16 05:57] LABS: BASOPHILS % (AUTO) 0.3 % (0-3); EOSINOPHILS % (AUTO) 0.6 % (0-5); MONOCYTES % (AUTO) 10.1 % (4-12); Mean Corpuscular Hemoglobin 25.8 pg (27.0-35.0); Mean Corpuscular Volume 83.8 fL (81-100); NEUTROPHILS % (AUTO) 73.8 % (40-74); Platelet Count 442 bil/L (150-400)
[2016-12-16] MEDS: Insulin LISPRO 300 Unit/3 mL Inj SUBQ SCH ×4 (07:57→22:00)
[2016-12-16] MEDS: oxyCODONE ER 10 mg ER12 Tablet PO SCH ×2 (08:05→20:35)
[2016-12-16] MEDS: Vancomycin Dose per Pharmacist XX SCH (08:07)
--- NOTE | 2016-12-16 08:44 | PCM.PNMED ---
Subjective Date of Service Dec 16, 2016 Subjective Difficult sleep. Gave lorazepam with good effects last night. She hates being awake, "with nothing to do". Noise bothered her. Patient more alert, wishes to drink unthicken fluids. Exam Vital Signs Vital Sign - Last Date Time Temp Pulse Resp B/P Pulse Ox O2 Delivery O2 Flow Rate FiO2 12/16/16 04:25 37.2 63 18 132/81 100 Room Air Intake and Output 12/15/16 12/15/16 12/16/16 Cumulative From/Thru 15:00 23:00 07:00 12/14/16 19:05 - 12/16/16 06:22 Intake Total 613 ml 520 ml 1903 ml Output Total 400 ml 275 ml 1375 ml Balance 213 ml 245 ml 528 ml Intake Oral 200 ml 0 ml 200 ml IV Total 413 ml 520 ml 1703 ml Output Urine Total 400 ml 275 ml 1375 ml Stool Total 0 ml 0 ml Exam GEN: Morbidly obese, aox3 HEENT: Sclera anicteric, moist mucous membranes Neck: Soft, NT CV: RRR, with soft systolic murmur Lungs: CTAB, normal breath sounds bilaterally, poor inspiratory effort ADB: soft, obese, non-tender, non-distended, ostomy bag on lower right with stool in bag, non-irritated, suprapubic rojas catheter in place draining cloudy urine Skin: Warm, dry and intact. sacral ulcer covered in dressing. Neuro: paraplegic T12 down, difficult to assess, loss of sensation to legs, feet Lab and Diagnostics Result Diagram: 12/16/1615 12/16/16514 X-Rays, CTs and MRIs Date of Service: 12/14/161935 PROCEDURE: X-RAY CHEST ONE VIEW, PORTABLE ([id number]) INDICATIONS: altered mental status IMPRESSION: Moderate CHF versus atypical pneumonia. Dictated by: Karrie Kim M.D. on 12/14/2016 at 20:08 Date of Service: 12/14/161935 PROCEDURE: CT BRAIN WITHOUT CONTRAST ([id number]) INDICATIONS: ams IMPRESSION: 1. Volume loss and small vessel ischemic disease. 2. No acute intracranial abnormality. Dictated by: Karrie Kim M.D. on 12/14/2016 at 20:09 12-lead ECG ECG Interpretation: normal sinus rhythm with a rate of [address] changes no change from previous dated 07/19/2016 Time: 20:00 Interpreted by: ED physician Assessment & Plan Patient is a 61 year old female with a history of T12 paraplegia, hyperthyroidism, hypertension, UTI, muscle weakness, depression, type II diabetes, Rojas, ostomy bag, encephalopathy secondary to UTI, and episodes of similar symptoms is brought to the ED due to altered level of consciousness. Found to have UTI, admitted for further treatment and management. Altered mental status secondary to UTI, present on admission. resolved. - Likely due to acute CAUTI, but pneumonia also possible - CT brain negative for any acute process - telemetry - BCx and UCx pending, Viral pcr pending Will obtain CT chest to evaluate for possible pneumonia since chest xray was ambivalent - Swallow eval necktar thick, will need to reeval as mentation improved. UTI, present on admission. Acute. - Started on IV Vancomycin and Levaquin on admit 12/15 - Tailor ABx as cultures return - UCx pending - replace suprapubic cath and send tip for cx -Will d/c Levaquin and switch to PO Ciprofloxacin for better Gram neg coverage. Patient is allergic to multiple Beta Lactams unfortunately. - Will consult ID on Saturday if patient not clinically better. Pharmacy requires ID consultation to start Meropenem. --MRSA positive Large sacral ulcer - patient followed at [facility] - Inpt Wound eval ordered for sacral ulcer and ostomy care - Continue Q2h turns for offloading - Continue patient's home pain medication regimen Chronic conditions POA: Type II diabetes - low dose correctional scale insulin protocol - A1c pending - Sugars stable CHF - continue home dose carvedilol - Stable CKD - Cr 1.4 on admit, per patient's baseline Hypothyroidism - continue home dose levothyroxine Osteoporosis - continue home med GERD - continue home dose omeprazole Depression - continue home med Bupropion Allergic rhinitis - fexofenadine and Flonase held Insomnia - home dose melatonin sublingual and seroquel PRN T12 paraplegia with ostomy - Wound care Chronic pain - home dose Duloxetine and scheduled Oxycontine continued to avoid opiate withdrawal - PRN opiate held Chronic constipation - home dose Senna BID, MOM continued PRN Obesity, BMI 35.5 - With sacral ulcers and increased BMI, will require specialized bed PRNs - Acetaminophen as needed for mild pain/fever/headache - Bowel regimen as needed - Antiemetic as needed DVT: heparin subQ GI: on PPI CODE: FULL Dispo: Will require 2-3 more days for workup and treatment. GI Prophylaxis: Proton Pump Inhibitor VTE Prophylaxis: Sub-Q Heparin (Unfractionated) Resuscitation Status: CPR: Attempt Resuscitation Attending Statement The patient was seen and examined together with Dr. Arron Vaughn on 12/16/2016 and I agree with the findings, assessment and plan as stated above. Arron Vaughn DO Dec 16, 2016 08:44 Yong Santiago MD Dec 16, 2016 13:10
[2016-12-16] MEDS: 0.9% Sodium Chloride 1,000 ML IV SCH ×3 (08:49→21:16)
[2016-12-16] MEDS: buPROPion SR 150 mg ER12 Tablet PO SCH ×2 (08:50→21:12)
[2016-12-16] MEDS: DULoxetine 30 mg DR Capsule PO SCH (08:51)
[2016-12-16] MEDS: levoFLOXacin 750 mg Tablet PO SCH (08:51)
--- NOTE | 2016-12-16 12:36 | NUR ---
Pain medication Pt fixated on pain medication this morning, frequently putting transformation specialist light to discuss pain medications. Pt insisted on visualizing pills in cup prior to administration to ensure they're all there "because I haven't been feeling the effects." Pt stating originally she takes PRN Oxycodone IR 60mg and we're not giving enough. Shortly after, pt also stated she takes 20 mg then 30 mg. Pt is requesting this RN notify MD to "stop messing with my pain medications." Care is ongoing.
[2016-12-16] MEDS ORDERED: Vancomycin Serum Trough XX ONE (21:30)
[2016-12-16] MEDS ORDERED: hydrOXYzine Pamoate 25 mg Capsule PO ONE (23:55)
[2016-12-17] VITALS (7 sets, daily range): BP systolic 120–134; BP diastolic 67–78; PULSE 60–72; RESP 18; O2SAT 97–99
[2016-12-17] MEDS: Heparin 5,000 Unit/mL Inj SUBQ SCH ×3 (00:36→16:52)
--- NOTE | 2016-12-17 02:33 | PCM.PHAPRO ---
Progress Date of Service: Dec 17, 2016 Vancomycin dosing by pharmacy for 61 y/o woman O: * Patient was on vancomycin 2000 mg IV every 24 hours * Trough level of 24.7 mcg/mL prior to the third dose * SCr of 1.5 mg/dL on 12/16 A: * Trough is not at steady-state but is high * SCr worsened P: * Hold vancomycin dose * Draw random vancomycin level at 0500 12/17 * Pharmacy to determine further dosing from the level * Continue to monitor renal function Thank you. Pharmacy will continue to follow. Rachel Shin, PharmD Rachel Shin Dec 17, 2016 02:33
[2016-12-17] MEDS ORDERED: Vancomycin Serum Level XX ONE (05:00)
[2016-12-17 05:29] LABS: BASOPHILS % (AUTO) 0.6 % (0-3); EOSINOPHILS % (AUTO) 1.8 % (0-5); MONOCYTES % (AUTO) 9.3 % (4-12); Mean Corpuscular Hemoglobin 25.8 pg (27.0-35.0); Mean Corpuscular Volume 83.8 fL (81-100); NEUTROPHILS % (AUTO) 66.8 % (40-74); Platelet Count 381 bil/L (150-400)
--- NOTE | 2016-12-17 06:25 | NUR ---
Sleeping pill Pt reported difficulty sleeping. MD was notified and gave order for PO hydroxyzine. Pt took pill and was able to sleep most of shift.
--- NOTE | 2016-12-17 07:28 | NUR ---
Colostomy output. Pt requested extra laxative with her HS meds. Pt was given total of 3 senna. Pts colostomy has produced almost no stool all shift. Next shift notified.
[2016-12-17] MEDS: Insulin LISPRO 300 Unit/3 mL Inj SUBQ SCH ×4 (08:00→20:49)
[2016-12-17] MEDS: Vancomycin Dose per Pharmacist XX SCH (08:30)
[2016-12-17] MEDS: DULoxetine 30 mg DR Capsule PO SCH (09:00)
[2016-12-17] MEDS: levoFLOXacin 750 mg Tablet PO SCH (09:01)
[2016-12-17] MEDS: buPROPion SR 150 mg ER12 Tablet PO SCH ×2 (09:02→21:35)
[2016-12-17] MEDS: oxyCODONE ER 10 mg ER12 Tablet PO SCH ×2 (09:03→21:55)
--- NOTE | 2016-12-17 09:13 | NUR ---
CARRIE signed. JUNITO Landrum
[2016-12-17] MEDS ORDERED: Lactulose 20 Gm/30 mL 30 mL Syrup PO SCH ×2 (10:20→20:30)
--- NOTE | 2016-12-17 10:31 | PCM.PNMED ---
Subjective Date of Service Dec 17, 2016 Subjective Gabriela reports she is doing ok this morning. She was unable to sleep much last night. She does tend to doze off frequently during the day, so she has a hard time sleeping at night. She also complains of some constipation. She reports decreased Ostomy output and has been asking for her prn bowel regimen. She normally uses Lactulose at home, which is more effective for her. Exam Vital Signs Vital Sign - Last Date Time Temp Pulse Resp B/P Pulse Ox O2 Delivery O2 Flow Rate FiO2 12/17/16 05:20 37.0 60 18 128/78 98 Room Air Intake and Output 12/16/16 12/16/16 12/17/16 Cumulative From/Thru 15:00 23:00 07:00 12/14/16 19:05 - 12/17/16 06:08 Intake Total 1164 ml 0 ml 3067 ml Output Total 300 ml 350 ml 2025 ml Balance 864 ml -350 ml 1042 ml Intake Oral 420 ml 0 ml 620 ml IV Total 744 ml 2447 ml Output Urine Total 300 ml 350 ml 2025 ml Stool Total 0 ml Exam GEN: Morbidly obese female in NAD, Alert oriented and conversive today HEENT: Sclera anicteric, moist mucous membranes Neck: Soft, NT CV: RRR, with soft systolic murmur Lungs: CTAB, normal breath sounds bilaterally, poor inspiratory effort ADB: soft, obese, non-tender, non-distended, ostomy bag on lower right with minimal output, non-irritated, suprapubic rojas catheter in place draining cloudy urine Skin: Warm, dry and intact. sacral ulcer covered in dressing. Neuro: difficult to assess, loss of sensation to legs, feet Psych: Flat affect IVs and Medications IV Fluids NS 80mls/hr Medications Reviewed: Medications were reviewed in detail Lab and Diagnostics Result Diagram: 12/17/1650912/17/16509 X-Rays, CTs and MRIs Date of Service: 12/14/161935 PROCEDURE: X-RAY CHEST ONE VIEW, PORTABLE ([id number]) INDICATIONS: altered mental status IMPRESSION: Moderate CHF versus atypical pneumonia. Dictated by: Karrie Kim M.D. on 12/14/2016 at 20:08 Date of Service: 12/14/161935 PROCEDURE: CT BRAIN WITHOUT CONTRAST ([id number]) INDICATIONS: ams IMPRESSION: 1. Volume loss and small vessel ischemic disease. 2. No acute intracranial abnormality. Dictated by: Karrie Kim M.D. on 12/14/2016 at 20:09 12-lead ECG ECG Interpretation: normal sinus rhythm with a rate of [address] changes no change from previous dated 07/19/2016 Time: 20:00 Interpreted by: ED physician Assessment & Plan Patient is a 61 year old female with a history of T12 paraplegia, hyperthyroidism, hypertension, UTI, muscle weakness, depression, type II diabetes, Rojas, ostomy bag, encephalopathy secondary to UTI, and episodes of similar symptoms is brought to the ED due to altered level of consciousness. Found to have UTI, admitted for further treatment and management. Altered mental status secondary to UTI, present on admission. resolved. - Likely due to metabolic encephalopathy secondary to acute CAUTI, but pneumonia also possible - CT brain negative for any acute process - telemetry - BCx and UCx pending, Viral pcr pending Will obtain CT chest to evaluate for possible pneumonia since chest xray was ambivalent - Swallow eval necktar thick, will need to reeval as mentation improved. - UA cultures positive for E.coli and K. pneumoniae. Levaquin will appropriately treat the E. coli, but the Klebsiella will require something else. - ID consultation pending for further abx recs. UTI, present on admission. Acute. - Started on IV Vancomycin and Levaquin on admit 12/15 - Tailor ABx as cultures return - Suprapubic cath exchanged on 12/15 and tip sent for culture. - Patient also had a reaction to Cipro in the past, so we continued Levaquin PO. - Will consult ID on Saturday if patient not clinically better. Pharmacy requires ID consultation to start Meropenem. --MRSA positive swab -- WIll discontinue Vancomycin since UA did not show any staph Large sacral ulcer - patient followed at [facility] - Inpt Wound eval ordered for sacral ulcer and ostomy care - Continue Q2h turns for offloading - Continue patient's home pain medication regimen Chronic conditions POA: Type II diabetes - low dose correctional scale insulin protocol - A1c pending - Sugars stable CHF - continue home dose carvedilol - Stable CKD - Cr 1.4 on admit, per patient's baseline Hypothyroidism - continue home dose levothyroxine Osteoporosis - continue home med GERD - continue home dose omeprazole Depression - continue home med Bupropion Allergic rhinitis - fexofenadine and Flonase held Insomnia - home dose melatonin sublingual and seroquel PRN T12 paraplegia with ostomy - Wound care Chronic pain - home dose Duloxetine and scheduled Oxycontine continued to avoid opiate withdrawal - PRN opiate held Chronic constipation - home dose Senna BID, MOM continued PRN - Added Lactulose 20mg BID to her regimen Obesity, BMI 35.5 - With sacral ulcers and increased BMI, will require specialized bed PRNs - Acetaminophen as needed for mild pain/fever/headache - Bowel regimen as needed - Antiemetic as needed DVT: heparin subQ GI: on PPI CODE: FULL Dispo: Likely discharge tomorrow if tolerating PO medications. Pain Evaluation: Adequate Pain Control GI Prophylaxis: Proton Pump Inhibitor VTE Prophylaxis: Sub-Q Heparin (Unfractionated) Resuscitation Status: CPR: Attempt Resuscitation Time spent 25 minutes Attending Statement I have seen and evaluated patient at bedside in addition to directly supervised care provided by resident physician. I agree with above documentation. David Huynh DO Dec 17, 2016 06:48 Artur Jay DO Dec 18, 2016 08:01 GI Prophylaxis: Proton Pump Inhibitor VTE Prophylaxis: Sub-Q Heparin (Unfractionated) Resuscitation Status: CPR: Attempt Resuscitation David Huynh DO Dec 17, 2016 06:48
--- NOTE | 2016-12-17 11:13 | NUR ---
Social Work-readiness for discharge: Data:EMR Reviewed. Pt is on day 3 of hospitalization for AMS and UTI per H&P. Per MD, pt is 1-2 days out from discharge. Pt to have ID consult and wound care consult. SW followed up with pt and confirmed plan of discharge back to [facility] at discharge, pt agreeable. SW provided update to Jolene Espinoza admissions at [facility] [phone], agreeable to accept pt back at discharge. Paperwork in the chart. SW will continue to follow. Assessment:Pt who is senior living care pt at [facility]. Plan:Pt to discharge to [facility] when medically stable with Dr. Nieto to follow. Paperwork in the chart. SW will continue to follow. JUNITO Landrum
--- NOTE | 2016-12-17 15:31 | NUR ---
Wound Care [facility] Received wound care evaluation order for wound to right buttocks. Patient has been seen previously in outpatient wound clinic for same ulcer with last appointment on 06/14/16. Patient reports too difficult to get to appointments, therefore [facility] nurses have been performing wound care. Patient reports wound "is probably a little bigger now" than when treated previously at wound clinic. Reports wound has not healed since being seen at outpatient clinic, therefore present on admission. Patient currently on P500 bed and reports that she knows she needs to turn more frequently than she does, however states she prefers sleeping and lying on her back. Patient reports sitting up in wc very little over past several weeks but typically sits up most of the day in her wheelchair. Patient refuses being turned to either side following wound care today. Reinstructed in importance of frequent turning side to side and avoiding supine position for off-loading of wound area. Patient with 3 total areas to right buttock. Stage III is largest to right buttock and measures 8cm W x 8.5cmL x 0.1cmD and is 100% red granulation tissues with moderate yellow drainage. 2 ulcers Stage II distally. Medial distal buttock measures 2cmL x 1.5cmW x <0.1cmD. Lateral distal buttock wound measures 0.5cm L x 0.4cm W x <0.1cm D. Wounds cleaned with normal saline. Skin prep periwound. Covered with AquacelAG and secured with foam and hypafix tape. Nursing to change outer dressing and secure PRN. Wound care to follow up as needed for dressing changes. Recommend turn q2 hours if patient is agreeable.
[2016-12-17] MEDS: Trimethoprim-Sulfa 160 mg-800 mg Tablet PO SCH ×2 (16:52→21:32)
--- NOTE | 2016-12-17 17:37 | NUR ---
Positioning/wound care/BM Pt frequently requesting to be repositioned, approximately Q1 hour. Wound care in this afternoon and drsg changed to coccyx. Pt req Lactulose for BM, MD agreed and order rec'd. Pt states that it's the "wrong dose, I need much more." Pt states that she "will never have a BM now." This RN spoke with MD who stated to keep dose at the ordered dose and they will re-eval tomorrow. This was communicated to pt. Small amount of soft, brown stool noted in colostomy bag. Bed in lowest, locked position and call light in reach.
[2016-12-17] MEDS: Mupirocin 2% 22 Gm Ointment NASAL SCH (20:30)
--- NOTE | 2016-12-17 20:35 | NUR ---
Constipation Pt refused the scheduled Lactulose and stated, "If I take that I'll be going all night." Pt requested to have the total of three senna this HS. Fluids in encouraged. Will continue to monitor.
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
[2016-12-17] MEDS ORDERED: Vancomycin Inj 1,000 MG in IV Premix 1 EACH IV SCH (22:00)
[2016-12-18] VITALS (8 sets, daily range): BP systolic 119–147; BP diastolic 71–88; PULSE 65–81; RESP 18; O2SAT 96–100
[2016-12-18] MEDS ORDERED: Magnesium Hydroxide 10 mL Oral Concentration PO PRN ×2 (00:12)
[2016-12-18] MEDS: Heparin 5,000 Unit/mL Inj SUBQ SCH ×3 (00:45→16:47)
--- NOTE | 2016-12-18 01:14 | NUR ---
constipation patient anxious that she is constipated. states that she hasn't had any regular/substantial output from her colostomy in a few days. abd is soft. active bowel tones. denies nausea. "feels bloated." colostomy with small amt of brown liquid output. minimal flatus. given mild of magnesia as requested by patient. turned and repositioned. will monitor. Addendum: 12/18/16 at 0231 by DEBBIE BELTRAN RN cont to complain of constipation and bloating. per patient report last substantial output to colostomy 12/14. states only 45gram of lacutulose will help relieve her constipation. bowel tones are active, abd round, mild distention. colostomy with very small amt of brown liquid. minimal flatus. notified night resident. Addendum: 12/18/16 at 0239 by DEBBIE BELTRAN RN received order for lacutulose 45grams per emar plan to give. patient agreeable to this.
[2016-12-18] MEDS ORDERED: Lactulose 20 Gm/30 mL 30 mL Syrup PO ONE ×2 (02:45→14:20)
--- NOTE | 2016-12-18 05:11 | NUR ---
repositioning patient repositioned 3x this shift. 2x she refused, stating "my back is most comfortable." reminded patient of the benefit of turning, and the risk of not turning for the skin. patient verbalized understanding. but again stated "its most comfortable this way." care ongoing.
--- NOTE | 2016-12-18 05:32 | NUR ---
colostomy output patient with 500 soft stool from colostomy. states "i am beginning to feel better.' requests lactulose 45gm bid as per skilled nursing routine care ongoing.
[2016-12-18 05:44] LABS: BASOPHILS % (AUTO) 0.6 % (0-3); EOSINOPHILS % (AUTO) 3.9 % (0-5); MONOCYTES % (AUTO) 7.5 % (4-12); Mean Corpuscular Hemoglobin 26.2 pg (27.0-35.0); Mean Corpuscular Volume 84.3 fL (81-100); NEUTROPHILS % (AUTO) 70.3 % (40-74); Platelet Count 354 bil/L (150-400)
[2016-12-18] MEDS: Insulin LISPRO 300 Unit/3 mL Inj SUBQ SCH ×4 (07:55→22:00)
[2016-12-18] MEDS: buPROPion SR 150 mg ER12 Tablet PO SCH ×2 (07:56→20:31)
[2016-12-18] MEDS: Trimethoprim-Sulfa 160 mg-800 mg Tablet PO SCH ×2 (07:56→20:31)
[2016-12-18] MEDS: DULoxetine 30 mg DR Capsule PO SCH (07:56)
[2016-12-18] MEDS: Mupirocin 2% 22 Gm Ointment NASAL SCH ×2 (07:57→20:32)
[2016-12-18] MEDS: Polyethylene Glycol (PEG) 17 Gm Powder PO SCH (08:30)
--- NOTE | 2016-12-18 11:01 | PCM.DIMED ---
David Huynh DO 12/18/16 1101: Discharge Instructions Date of Service Dec 18, 2016 Dates of Hospitalization Dec 14, 2016 at 21:29 Discharge Diagnosis Discharge Diagnosis Metabolic Encephalopathy secondary to UTI, present on admission. resolved. UTI, present on admission. Acute. improving Large sacral ulcers Chronic conditions POA: Type II diabetes CHF CKD Hypothyroidism Osteoporosis GERD Depression Allergic rhinitis Insomnia T12 paraplegia with ostomy Chronic pain Chronic constipation Obesity, BMI 35.5 Medication Instructions Continue taking your home medications as prescribed. We have started you on an antibiotic called Bactrim. Please take it twice a day until Dec 23. Diet Low fat, Low Sodium Activity Other (Per accepting facility ) Call your provider Fever or Chills, Chest pain, Vomitting Patient Instructions You are being discharged back to [facility]. You had a UTI, likely due to your suprapubic catheter. We have exchanged this catheter for a new one. You also will need to complete the Bactrim antibiotic to fully treat your urinary tract infection. Please follow up with your primary care doctor in 1 week for re-evaluation. Please continue going to the Wound Care clinic here in for treatment of your sacral ulcers. Please turn every 2 hours to off load the wound. Please drink at least 2 Liters of water daily to keep hydrated. Follow-up Provider: Abdirizak Nieto MD Follow-up with PCP in: 1 week Artur Jay DO 12/18/16 1440: Discharge Instructions Attending's Statement Pt seen and evaluated today. Agree with plan but will postpone discharge 1 additional day at patient request to allow time for patient to regain strength. David Huynh DO Dec 18, 2016 11:01 Artur Jay DO Dec 18, 2016 14:40
[2016-12-18] MEDS ORDERED: SULF1TAB35 PO (11:05)
[2016-12-18] MEDS ORDERED: MUPI22OI2 NASAL (11:05)
[2016-12-18] MEDS: oxyCODONE ER 10 mg ER12 Tablet PO SCH ×2 (11:12→22:34)
--- NOTE | 2016-12-18 14:02 | NUR ---
Arranged BLS transport for 1529 today for return to [facility] per DIRECTOR ORACLE. This is set up via [facility]. Updated DIRECTOR ORACLE
--- NOTE | 2016-12-18 15:14 | PCM.PNMED ---
Subjective Date of Service Dec 18, 2016 Subjective Patient reports she did have a BM overnight, but is still having abdominal pain. She states that only Lactulose helps with her constipation. She denies any fevers or n/v. She has been tolerating her antibiotics. Pain has been well controlled. She continues to refuse Q2h turns because she is more comfortable sleeping on her back. Exam Vital Signs Vital Sign - Last Date Time Temp Pulse Resp B/P Pulse Ox O2 Delivery O2 Flow Rate FiO2 12/18/16 04:42 36.8 66 18 143/84 100 Room Air Intake and Output 12/17/16 12/17/16 12/18/16 Cumulative From/Thru 15:00 23:00 07:00 12/14/16 19:05 - 12/18/16 06:41 Intake Total 1365 ml 440 ml 100 ml 4972 ml Output Total 500 ml 300 ml 2825 ml Balance 1365 ml -60 ml -200 ml 2147 ml Intake Oral 440 ml 100 ml 1160 ml IV Total 1365 ml 3812 ml Output Urine Total 500 ml 300 ml 2825 ml Stool Total 0 ml Exam GEN: Morbidly obese female in NAD, Alert oriented and conversive today HEENT: Sclera anicteric, moist mucous membranes Neck: Soft, NT CV: RRR, with soft systolic murmur Lungs: CTAB, normal breath sounds bilaterally, poor inspiratory effort ADB: soft, obese, mildly tender to palpation of epigastrium, ostomy bag on lower right with moderate output, non-irritated, suprapubic rojas catheter in place draining clear urine Skin: Warm, dry and intact. sacral ulcer covered in dressing. Neuro: difficult to assess, loss of sensation to legs, feet Psych: Flat affect IVs and Medications Medications Reviewed: Medications were reviewed in detail Lab and Diagnostics Result Diagram: 12/18/1650712/18/168 X-Rays, CTs and MRIs Date of Service: 12/14/161935 PROCEDURE: X-RAY CHEST ONE VIEW, PORTABLE ([id number]) INDICATIONS: altered mental status IMPRESSION: Moderate CHF versus atypical pneumonia. Dictated by: Karrie Kim M.D. on 12/14/2016 at 20:08 Date of Service: 12/14/161935 PROCEDURE: CT BRAIN WITHOUT CONTRAST ([id number]) INDICATIONS: ams IMPRESSION: 1. Volume loss and small vessel ischemic disease. 2. No acute intracranial abnormality. Dictated by: Karrie Kim M.D. on 12/14/2016 at 20:09 12-lead ECG ECG Interpretation: normal sinus rhythm with a rate of [address] changes no change from previous dated 07/19/2016 Time: 20:00 Interpreted by: ED physician Assessment & Plan Patient is a 61 year old female with a history of T12 paraplegia, hyperthyroidism, hypertension, UTI, muscle weakness, depression, type II diabetes, Rojas, ostomy bag, encephalopathy secondary to UTI, and episodes of similar symptoms is brought to the ED due to altered level of consciousness. Found to have UTI, admitted for further treatment and management. Altered mental status secondary to UTI, present on admission. resolved. - Likely due to metabolic encephalopathy secondary to acute CAUTI, but pneumonia also possible - CT brain negative for any acute process - telemetry - BCx and UCx pending, Viral pcr pending Will obtain CT chest to evaluate for possible pneumonia since chest xray was ambivalent - Swallow eval necktar thick, will need to reeval as mentation improved. - UA cultures positive for E.coli and K. pneumoniae. - ID recommends Bactrim DS BID until 12/23. UTI, present on admission. Acute. Improving - Started on IV Vancomycin and Levaquin on admit 12/15 - Antibiotics tailored as above - Suprapubic cath exchanged on 12/15 and tip sent for culture. Cultures still pending. - Originally started on Levaquin and Vancomycin, but changed to Bactrim DS per ID. --MRSA positive swab Large sacral ulcer - [facility] - Inpt Wound eval ordered for sacral ulcer and ostomy care - Continue Q2h turns for offloading - Continue patient's home pain medication regimen Chronic conditions POA: Type II diabetes - low dose correctional scale insulin protocol - A1c pending - Sugars stable CHF - continue home dose carvedilol - Stable CKD - Cr 1.4 on admit, per patient's baseline Hypothyroidism - continue home dose levothyroxine Osteoporosis - continue home med GERD - continue home dose omeprazole Depression - continue home med Bupropion Allergic rhinitis - fexofenadine and Flonase held Insomnia - home dose melatonin sublingual and seroquel PRN T12 paraplegia with ostomy - Wound care Chronic pain - home dose Duloxetine and scheduled Oxycontine continued to avoid opiate withdrawal - PRN opiate held Chronic constipation - home dose Senna BID, MOM continued PRN - Added Lactulose 45mg BID to her regimen at request Obesity, BMI 35.5 - With sacral ulcers and increased BMI, will require specialized bed PRNs - Acetaminophen as needed for mild pain/fever/headache - Bowel regimen as needed - Antiemetic as needed DVT: heparin subQ GI: on PPI CODE: FULL Dispo: Plan was to discharge today, but with patient's increased abdominal pain and increase WBC, will watch over night and discharge tomorrow morning when stable. Pain Evaluation: Adequate Pain Control GI Prophylaxis: Proton Pump Inhibitor VTE Prophylaxis: Sub-Q Heparin (Unfractionated) Resuscitation Status: CPR: Attempt Resuscitation Time spent 25 minutes Attending Statement I have seen and evaluated patient in addition to directly supervising care provided by resident. I agree with above documentation. David Huynh DO Dec 18, 2016 07:00 Artur Jay DO Dec 19, 2016 07:43
--- NOTE | 2016-12-18 15:37 | NUR ---
Social Work-readiness for discharge: Data:EMR Reviewed. Pt is on day 4 of hospitalization for AMS and UTI per H&P. Per MD, pt is medically stable, then MD cancelled the discharge. Pt to have ID consult and wound care consult. SW followed up with pt and confirmed plan of discharge back to [facility] at discharge, pt agreeable. SW provided update to Jolene Espinoza admissions at [facility] [phone], agreeable to accept pt back at discharge. Paperwork in the chart. SW will continue to follow. 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 Plan:Pt to discharge to [facility] when medically stable with Dr. Nieto to follow. Paperwork in the chart. SW will continue to follow. JUNITO Landrum
[2016-12-18] MEDS ORDERED: Lactulose 20 Gm/30 mL 30 mL Syrup PO SCH (16:40)
[2016-12-18] MEDS: Lactulose 20 Gm/30 mL 30 mL Syrup PO SCH (16:48)
--- NOTE | 2016-12-18 17:21 | NUR ---
Sacrum/R Upper Leg Dressing Observed drainage on large dressing covering Stage III Pressure Ulcer + 2 Stage II Pressure Ulcers. Told pt I will be changing dressing. Pt denies changing, states "it was just changed yesterday and I don't need it changed so soon." Related to pt the importance of changing the dressing, that it was from wound care instructions. Pt still denies to have it changed. Later in shift pt makes comment about myself going into wound care. Again offered to change the dressing. Pt makes a comment about myself "not being experienced enough." Informed pt of my experience with wound care and asked if she would like another nurse to perform the dressing change. Pt again denied the dressing change. Attempted to turn, per 2 Hour schedule. Pt denied to be turned, wished to stay in current position.
--- NOTE | 2016-12-18 17:28 | NUR ---
Lactulose Pt uses lactulose to promote bowel movements. AM dose was ordered for 20gm. Pt refused AM dose of lactulose. Miralax was not given because pt had a BM this AM, order to be held if greater than 1 BM/day. Pt not interested in taking any laxatives this AM. Later in shift pt requests lactulose. When giving medication rights, pt refuses dose and requests dose of 45gm. MD made aware, will discuss with pt. New order in for 40gm lactulose, pt again refuses, requests 45gm dose. Pt not willing to take partial dose. Pt starts complaining about not having what she wants, threatens to make a complaint with wireless sales manager. informed, believed to have made order for 45gm but will correct order. 45gm Lactulose BID. ELASTIC ATTACHER COVERSTITCH reports that pt continued to complain about medication and threatened to make complaint. Waiting for medication, called pharmacy to make sure med was made available, was unacknowledged. Med updated and administered to pt. Pt desires lactulose mixed with OJ. Continuing with care...
[2016-12-19] MEDS: Heparin 5,000 Unit/mL Inj SUBQ SCH ×2 (00:30→08:51)
[2016-12-19 01:01] VITALS: BP 109/62; PULSE 70; RESP 18; O2SAT 96
--- NOTE | 2016-12-19 04:06 | NUR ---
Cooperation Pt cooperative with cares and medication pass. Refused to allow RN to assess dressings on sacrum and thighs, says she wants to wait till she gets [facility] to [facility]. Left room with call light at bedside.
[2016-12-19 05:15] VITALS: BP 142/80; PULSE 77; RESP 18; O2SAT 98
[2016-12-19 05:56] LABS: BASOPHILS % (AUTO) 0.4 % (0-3); EOSINOPHILS % (AUTO) 4.3 % (0-5); MONOCYTES % (AUTO) 6.2 % (4-12); Mean Corpuscular Hemoglobin 26.1 pg (27.0-35.0); Mean Corpuscular Volume 82.9 fL (81-100); NEUTROPHILS % (AUTO) 73.6 % (40-74); Platelet Count 344 bil/L (150-400)
[2016-12-19] MEDS: Insulin LISPRO 300 Unit/3 mL Inj SUBQ SCH ×2 (07:48→11:50)
[2016-12-19] MEDS: Lactulose 20 Gm/30 mL 30 mL Syrup PO SCH (08:30)
[2016-12-19] MEDS: Polyethylene Glycol (PEG) 17 Gm Powder PO SCH (08:51)
[2016-12-19] MEDS: oxyCODONE ER 10 mg ER12 Tablet PO SCH (08:52)
[2016-12-19] MEDS: buPROPion SR 150 mg ER12 Tablet PO SCH (08:53)
[2016-12-19] MEDS: Trimethoprim-Sulfa 160 mg-800 mg Tablet PO SCH (08:53)
[2016-12-19] MEDS: DULoxetine 30 mg DR Capsule PO SCH (08:53)
[2016-12-19] MEDS: Mupirocin 2% 22 Gm Ointment NASAL SCH (08:54)
--- NOTE | 2016-12-19 09:10 | NUR ---
CARRIE signed. JUNITO Landrum
--- NOTE | 2016-12-19 09:16 | NUR ---
Pt currently placed on least restrictive diet level. If MD suspects aspiration then please order a modified barium swallow study, as the pt did not demonstrate overt signs or symptoms of aspiration. ST will sign off at this time.
--- NOTE | 2016-12-19 09:17 | PCM.PNMED ---
Subjective Date of Service Dec 19, 2016 Subjective Patient reports that she has evacuated her backed up stool and feels better in regards to that this morning. She is complaining of increasing lower back pain. Denies any fevers or chills, but reports increased cramping in her legs, which is usually the sign of pain for her. Exam Vital Signs Vital Sign - Last Date Time Temp Pulse Resp B/P Pulse Ox O2 Delivery O2 Flow Rate FiO2 12/19/16 05:15 36.5 77 18 142/80 98 Room Air Intake and Output 12/18/16 12/18/16 12/19/16 Cumulative From/Thru 15:00 23:00 07:00 12/14/16 19:05 - 12/19/16 05:58 Intake Total 418 ml 300 ml 5690 ml Output Total 2075 ml 1325 ml 6225 ml Balance -1657 ml -1025 ml -535 ml Intake Oral 418 ml 300 ml 1878 ml IV Total 3812 ml Output Urine Total 550 ml 925 ml 4300 ml Stool Total 1525 ml 400 ml 1925 ml Exam GEN: Morbidly obese female, Alert and oriented, appears in mild pain. HEENT: Sclera anicteric, moist mucous membranes Neck: Soft, NT CV: RRR, with soft systolic murmur Lungs: CTAB, normal breath sounds bilaterally, poor inspiratory effort ADB: soft, obese, NT, ND, ostomy bag on lower left with moderate output, non- irritated, suprapubic rojas catheter in place draining clear urine Skin: Warm, dry and intact. sacral ulcer covered in dressing. No peripheral edema noted Neuro: difficult to assess, loss of sensation to legs, feet Psych: Flat affect IVs and Medications Medications Reviewed: Medications were reviewed in detail Lab and Diagnostics Result Diagram: 12/19/1652212/19/16522 X-Rays, CTs and MRIs Date of Service: 12/14/161935 PROCEDURE: X-RAY CHEST ONE VIEW, PORTABLE ([id number]) INDICATIONS: altered mental status IMPRESSION: Moderate CHF versus atypical pneumonia. Dictated by: Karrie Kim M.D. on 12/14/2016 at 20:08 Date of Service: 12/14/161935 PROCEDURE: CT BRAIN WITHOUT CONTRAST ([id number]) INDICATIONS: ams IMPRESSION: 1. Volume loss and small vessel ischemic disease. 2. No acute intracranial abnormality. Dictated by: Karrie Kim M.D. on 12/14/2016 at 20:09 12-lead ECG ECG Interpretation: normal sinus rhythm with a rate of [address] changes no change from previous dated 07/19/2016 Time: 20:00 Interpreted by: ED physician Assessment & Plan Patient is a 61 year old female with a history of T12 paraplegia, hyperthyroidism, hypertension, UTI, muscle weakness, depression, type II diabetes, Rojas, ostomy bag, encephalopathy secondary to UTI, and episodes of similar symptoms is brought to the ED due to altered level of consciousness. Found to have UTI, admitted for further treatment and management. Altered mental status secondary to UTI, present on admission. resolved. - Likely due to metabolic encephalopathy secondary to acute CAUTI, but pneumonia also possible - CT brain negative for any acute process - telemetry d/c - no events. - BCx and UCx pending, Viral pcr pending Will obtain CT chest to evaluate for possible pneumonia since chest xray was ambivalent - Swallow eval necktar thick, will need to reeval as mentation improved. - UA cultures positive for E.coli and K. pneumoniae. - ID recommends Bactrim DS BID until 12/23. - Increasing leukocytosis is concerning, but patient is on appropriate abx for her UTI. With the increased back pain, will assess sacral ulcers to r/o infection. UTI, present on admission. Acute. Improving - Started on IV Vancomycin and Levaquin on admit 12/15 - Antibiotics tailored as above - Suprapubic cath exchanged on 12/15 and tip sent for culture. Cultures still pending. - Originally started on Levaquin and Vancomycin, but changed to Bactrim DS per ID. --MRSA positive swab Large sacral ulcer - [facility] - Inpt Wound eval ordered for sacral ulcer and ostomy care - Continue Q2h turns for offloading - Continue patient's home pain medication regimen Chronic conditions POA: Type II diabetes - low dose correctional scale insulin protocol - A1c pending - Sugars stable CHF - continue home dose carvedilol - Stable CKD - Cr 1.4 on admit, per patient's baseline Hypothyroidism - continue home dose levothyroxine Osteoporosis - continue home med GERD - continue home dose omeprazole Depression - continue home med Bupropion Allergic rhinitis - fexofenadine and Flonase held Insomnia - home dose melatonin sublingual and seroquel PRN T12 paraplegia with ostomy - Wound care Chronic pain - home dose Duloxetine and scheduled Oxycontine continued to avoid opiate withdrawal - PRN opiate held Chronic constipation - home dose Senna BID, MOM continued PRN - Added Lactulose 45mg BID to her regimen at request -Improved output Obesity, BMI 35.5 - With sacral ulcers and increased BMI, will require specialized bed PRNs - Acetaminophen as needed for mild pain/fever/headache - Bowel regimen as needed - Antiemetic as needed DVT: heparin subQ GI: on PPI CODE: FULL Dispo: Plan was to discharge today, but with patient's increased abdominal pain and increase WBC, will watch over night and discharge tomorrow morning when stable. Pain Evaluation: Adequate Pain Control GI Prophylaxis: Proton Pump Inhibitor VTE Prophylaxis: Sub-Q Heparin (Unfractionated) VTE Mechanical Devices: Intermittant Pneumatic CD Resuscitation Status: CPR: Attempt Resuscitation Time spent 35 minutes Attending Statement I have seen and evaluated patient at bedside, in addition to directly supervising care provided by resident physician. I agree with above documentation. Pt medically stable, following conversation with ID whom felt mild increase in wbc count not likley related to worsening infection, [facility]. David Huynh DO Dec 19, 2016 06:46 Artur Jya DO Dec 19, 2016 16:16
--- NOTE | 2016-12-19 10:30 | NUR ---
Wound Care Pt seen at beside with resident to assess right buttock ulcer and to see if it was felt that this was the nidus for her infection. Dressing was removed and ulcer was visualized, minimal bleeding but wound is without sign or symptom of infection at this time. right buttock ulcer measures 8cm W x 8.5cmL x 0.1cmD and is 100% red granulation tissues with moderate yellow drainage. 2 ulcers Stage II distally. Medial distal buttock measures 2cmL x 1.5cmW x <0.1cmD. Lateral distal buttock wound measures 0.5cm L x 0.4cm W x <0.1cm D. All ulcers were cleaned with saline and gauze then wound were redressed with aquacel ag and mepilex foam dressing taped in place. Ostomy appliance was changed and new pouch was placed as well. Recommend dressings be changed q 48 hours. F/U at wound center on discharge.
--- NOTE | 2016-12-19 12:16 | PROG NOTE ---
[address] [address] PROGRESS NOTE PATIENT: LION VERA : 1955 MR#: [id number] ADMIT: 12/14/2016 JOB ID: [id number] DATE: 12/19/2016 INFECTIOUS DISEASE FOLLOWUP NOTE: REASON FOR FOLLOWUP: I was asked by Dr. Huynh to re-evaluate the patient today because of leukocytosis. Recall that this is the patient we had seen recently with a complicated urinary tract infection, as well as underlying shallow decubitus ulcer. My recommendation a few days ago had been to treat the patient with Bactrim for about one week through December 23, and try and decolonize her MRSA with nasal Bactroban. The patient tells me over the last couple of days since I have last seen her, she has been free of fever or chills. She has no pulmonary symptoms and has not experienced any abdominal problems either. In general, she feels better. PHYSICAL EXAMINATION: Reveals a consistently afebrile woman. Temp 36.5, pulse 77, respiratory rate 18, blood pressure 142/80. She is saturating well on room air. Examination of the mental status reveals it to be clear. Oral cavity benign. Lungs quite clear. Cardiac tones without new murmur. Abdomen soft and nontender. The colostomy site is benign. The patient's suprapubic site has a little bit of inflammation at the entrance site of the recently changed suprapubic catheter but does not appear grossly infected. LABORATORIES: Include white count more or less stable at 16,000. It came in at 17, went down to 13 and now is 16. In looking back over her white blood counts over the past 2-1/2 years she has never had a normal one and has between 11,000 and 20,000 white cells basically at all times. So, this is nothing new. Her procalcitonin is less than 0.1 today, and her creatinine 1.61. Her cultures from urine were again reviewed. They grew Klebsiella pneumoniae and E. coli, both sensitive to Bactrim. Also note that her potassium is 4.6 today. IMPRESSION: This patient seems to be doing quite well on this therapy. Her leukocytosis is chronic and is not a good marker to follow for infection in this otherwise completely nontoxic patient. RECOMMENDATIONS: 1. I agree with recommendations to continue with Bactrim for the next four days or so through December 23 but nasal Bactroban should continue for 10 days. 2. Thanks for calling us back to recheck on this patient. Infectious Disease will go ahead and sign off.
[2016-12-19] MEDS ORDERED: SULF1TAB35 PO (12:37)
[2016-12-19 13:31] VITALS: BP 126/78; PULSE 80; RESP 18; O2SAT 98
--- NOTE | 2016-12-19 13:55 | NUR ---
Social Work-discharge: Data:EMR reviewed. Pt is on day 5 of hospitalization for AMS per H&P. Pt is medically stable for discharge today. ERICA spoke with Jolene Espinoza admissions at [facility] [phone] who confirms they are able to accept pt back today. ERICA faxed orders and created packet. ERICA and UR Specialist reviewed chart and feel pt meets criteria to go BLS. ERICA arranged BLS for 1430 via [facility]. ERICA updated pt at bedside regarding discharge time, ERICA explained that pt meets criteria to go BLS, but SW cannot guarantee that insurance will cover the cost, pt agreeable. Pt declined having SW call anyone for her. RN,UC,pt/family, and [facility] all updated and agreeable to plan. 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. Plan:Pt to discharge back to [facility] today via BLS at 1430.RN,UC,pt/family, and [facility] all updated and agreeable to plan. JUNITO Landrum
--- NOTE | 2016-12-19 14:38 | NUR ---
Discharge: Patient discharge to [facility] @ approx 1440 via BLS stretcher. IV d/c'd intact. Report called to [facility] @ 1400. Patient complained of back pain 6/10 on pain scale, Oxycodone administered. Mary Lou notified @ 1440 of pain medication administration. No apparent distress noted at time of discharge.
--- NOTE | 2016-12-19 15:10 | PCM.DC.MED ---
Discharge Summary Date of Service Dec 19, 2016 Dates of Hospitalization Date of Hospital Admission Dec 14, 2016 at 21:29 Date of Discharge: Dec 19, 2016 Providers: Admitting Physician: Maggy Belle DO Primary Care Physician: Abdirizak Nieto MD Attending Physician: Maggy Belle DO Diagnosis at Time of Discharge Diagnosis at Time of Discharge Metabolic Encephalopathy secondary to UTI, present on admission. resolved. UTI, present on admission. Acute. improving Large sacral ulcers Chronic conditions POA: Type II diabetes CHF CKD Hypothyroidism Osteoporosis GERD Depression Allergic rhinitis Insomnia T12 paraplegia with ostomy Chronic pain Chronic constipation Obesity, BMI 35.5 Left Thyroid Nodule, found on CT Consultations Infectious Disease Dr Morales Procedures XRay, CTs & MRIs Date of Service: 12/14/161935 PROCEDURE: X-RAY CHEST ONE VIEW, PORTABLE ([id number]) INDICATIONS: altered mental status IMPRESSION: Moderate CHF versus atypical pneumonia. Dictated by: Karrie Kim M.D. on 12/14/2016 at 20:08 Date of Service: 12/14/161935 PROCEDURE: CT BRAIN WITHOUT CONTRAST ([id number]) INDICATIONS: ams IMPRESSION: 1. Volume loss and small vessel ischemic disease. 2. No acute intracranial abnormality. Dictated by: Karrie Kim M.D. on 12/14/2016 at 20:09 CT CHEST IMPRESSION: 1. No acute cardiopulmonary process. 2. Bibasilar atelectasis. 3. Left thyroid nodule. Recommend thyroid ultrasound for followup. ECG 12 Lead ECG Interpretation: normal sinus rhythm with a rate of [address] changes no change from previous dated 07/19/2016 Time: 20:00 Interpreted by: ED physician Brief History A 61 year old female with a history of T12 paraplegia, hyperthyroidism, hypertension, UTI, muscle weakness, depression, type II diabetes, obesity, Rojas , ostomy bag, encephalopathy secondary to UTI, and episodes of similar symptoms is brought to the ED from [facility] due to altered level of consciousness and elevated temperature noticed by staff. The pt has a GCS of 10 on arrival. Per ED records patient had a recent medication change, which staff believes may be related to the pt's symptoms. Pt is unable to provide a history. In the ED, patient afebrile at 36.9, HR 80, RR 16, BP 154/78, 98% saturation on RA. UA positive for nitrate and leukocyte esterase, with WBC >50. Lactic acid 1.4. Patient was started on Vancomycin and Levaquin and admitted for further treatment and management. Hospital Course Patient is a 61 year old female with a history of T12 paraplegia, hyperthyroidism, hypertension, UTI, muscle weakness, depression, type II diabetes, Rojas, ostomy bag, encephalopathy secondary to UTI, and episodes of similar symptoms is brought to the ED due to altered level of consciousness. She was found to have a catheter associated UTI with E. coli and Klebsiella. She was started on IV antibiotics, her suprapubic catheter was exchanged, and her antibiotics were tailored to Bactrim PO per ID recommendations after sensitivities returned. Her mentation improved after a few days, along with her oral intake. Wound care was also obtained to manage patient's large buttock and sacral wound. Impression is that the wound is stable and is not infected. Her other chronic conditions were fairly stable during the hospital stay. She was discharged in good condition back to SNF for further rehab and also to complete her oral antibiotics. AMS secondary to UTI, present on admission. resolved. - Likely due to metabolic encephalopathy secondary to acute CAUTI - CT brain negative for any acute process. - telemetry monitoring was benign during hospital stay. - Blood cultures were negative. Viral pcr was negative. She also had a Chest CT to r/o pneumonia that was benign except a thyroid nodule noted. Recommend outpatient f/u. - Swallow evaluation initially recommended nectar thick due to decreased mentation, but this was elevated to a full diabetic/HH diet after re-evaluation. - UA cultures positive for E.coli and K. pneumoniae. - ID recommends Bactrim DS BID until 12/23. - Patient also had a persistently high leukocytosis, but Sacral ulcers were unchanged and not infected appearing. Likely this is her baseline or will improve with further PO antibiotic therapy. UTI, present on admission. Acute. Improving - Started on IV Vancomycin and Levaquin on admit 12/15 - Antibiotics tailored as above - Suprapubic cath exchanged on 12/15 and tip sent for culture. Cultures still pending. - Originally started on Levaquin and Vancomycin, but changed to Bactrim DS per ID. --MRSA positive swab, so ID recommends Bactroban maegan-nasally to decrease colonization. Large sacral ulcer, POA, stable - patient followed at [facility] here at - Inpt Wound eval ordered for sacral ulcer and ostomy care - Continue Q2h turns for offloading - Continue patient's home pain medication regimen Chronic conditions POA: Type II diabetes - low dose correctional scale insulin protocol - A1c 6.5 on admission - Sugars stable CHF - continued home dose carvedilol - Stable CKD - Cr 1.4 on admit, per patient's baseline Hypothyroidism - continued home dose levothyroxine Osteoporosis - continued home med GERD - continued home dose omeprazole Depression - continued home med Bupropion Allergic rhinitis - fexofenadine and Flonase held during admission Insomnia - home dose melatonin sublingual and seroquel PRN continued T12 paraplegia with ostomy - Wound care initiated Chronic pain - home dose Duloxetine and scheduled Oxycontin continued to avoid opiate withdrawal - PRN opiate held Chronic constipation - home dose Senna BID, Milk of mag continued PRN - Added Lactulose 45mg BID to her regimen at request -Improved ostomy output with this regimen Obesity, BMI 35.5 - With sacral ulcers and increased BMI, required specialized bed Exam Vital Signs (Last) Date Time Temp Pulse Resp B/P Pulse Ox O2 Delivery O2 Flow Rate FiO2 12/19/16 13:31 36.5 80 18 126/78 98 Room Air Exam GEN: Morbidly obese female, Alert and oriented, appears in mild pain. HEENT: Sclera anicteric, moist mucous membranes Neck: Soft, NT CV: RRR, with soft systolic murmur Lungs: CTAB, normal breath sounds bilaterally, poor inspiratory effort ADB: soft, obese, NT, ND, ostomy bag on lower left with moderate output, non- irritated, suprapubic rojas catheter in place draining clear urine Skin: Warm, dry and intact. sacral ulcer covered in dressing. No peripheral edema noted Neuro: difficult to assess, loss of sensation to legs, feet Psych: Flat affect Test 12/14/16 19:00 12/16/16 05:15 12/17/16 05:10 12/17/16 19:05 Hold Purple Top Tube Received (Received) Prothrombin Time 12.0sec (8.1-12.5) Prothromb Time International Ratio 1.12ratio Hold Blue Top Tube Received (Received) Urine Color Yellow (YELLOW) Urine Appearance Hazy (CLEAR,HAZY) Urine pH 6.0 (5.0-8.0) Urine Specific [place] 1.025 (1.003-1.035) Urine Protein Tracemg/dL (NEG,TRACE) Urine Glucose (UA) Negativemg/dL (NEGATIVE) Urine Ketones Tracemg/dL (NEGATIVE) Urine Occult Blood Moderate (NEGATIVE) Urine Nitrite Positive (NEGATIVE) Urine Bilirubin Negative (NEGATIVE) Urine Urobilinogen Normalmg/dL (NORMAL) Urine Leukocyte Esterase Large (NEGATIVE) Urine RBC 3-10/hpf (0-2) Urine WBC >50/hpf (0-5) Urine Epithelial Cells Moderate/hpf (NONE-MOD) Urine Crystals None seen (NONE SEEN) Urine Bacteria Many/hpf (NONE-FEW) Urine Hyaline Casts None/lpf (NONE) Urine Granular Casts None seen (NONE SEEN) Urine Waxy Casts None seen (NONE SEEN) Urine Red Blood Cell Casts None seen (NONE SEEN) Urine White Blood Cell Casts None seen (NONE SEEN) Urine Mucus None seen (None Seen) Urine Trichomonas None seen (NONE SEEN) Urine Yeast None (NONE SEEN) Urinalysis Comment None Urine Culture Reflexed Indicated Hold Urine Received (Received) Hemoglobin A1c 6.5% (4.8-5.6) Lactic Acid Level 1.4mmol/L (0.4-2.0) Total Bilirubin 0.3mg/dL (0.0-1.2) Aspartate Amino Transf (AST/SGOT) 17U/L (0-50) Alanine Aminotransferase (ALT/SGPT) 11U/L (0-32) Alkaline Phosphatase 125U/L (25-165) Total Protein 8.5g/dL (6.4-8.4) Albumin 3.8g/dL (3.4-5.0) Hold [place] Top Tube Received (Received) Hold [place] Top Tube Received (Received) Alcohol, Quantitative < 10mg/dL (0-10) Urine Legionella pneumophilia Ag Negative (Negative) C-Reactive Protein 1.8mg/dL (0.0-0.5) Prealbumin 23mg/dL (20-40) Random Vancomycin Level 21.9ug/mL Rx Vancomycin Level Trough 17.9mcg/mL Test 12/19/16 05:23 White Blood Count 16.4th/mm3 (3.8-10.1) Red Blood Count 4.33mil/mm3 (3.90-5.20) Hemoglobin 11.3g/dL (12.0-15.6) Hematocrit 35.9% (35.0-46.0) Mean Corpuscular Volume 82.9fL (81-100) Mean Corpuscular Hemoglobin 26.1pg (27.0-35.0) Mean Corpuscular Hemoglobin Concent 31.5% (32.0-37.0) Red Cell Distribution Width 15.9% (12.3-15.4) Platelet Count 344bil/L (150-400) Neutrophils (%) (Auto) 73.6% (40-74) Lymphocytes (%) (Auto) 15.0% (14-46) Monocytes (%) (Auto) 6.2% (4-12) Eosinophils (%) (Auto) 4.3% (0-5) Basophils (%) (Auto) 0.4% (0-3) Sodium Level 140mEq/L (134-144) Potassium Level 4.6mEq/L (3.5-5.2) Chloride Level 105mEq/L (97-108) Carbon Dioxide Level 20mmol/L (18-29) Blood Urea Nitrogen 29mg/dL (8-27) Creatinine 1.61mg/dL (0.57-1.00) Estimat Glomerular Filtration Rate 47mL/min (>59) Glucose Level 131mg/dL (60-99) Calcium Level 8.6mg/dL (8.5-10.1) Procalcitonin 0.09ng/mL (0.00-0.08) Discharge Medications Discharge Medications Alendronate Sodium (Fosamax) 70 Mg Tablet 70 MG PO QW (Reported) Ascorbic Acid (Vitamin C) 250 Mg Tab.chew 250 MG PO BID (Reported) Bupropion ER (Bupropion ER) 150 Mg Tablet.er 150 MG PO BID (Reported) Carvedilol (Coreg) 6.25 Mg Tablet 6.25 MG PO BID Prescribed by: RONI LAGUNA DO Duloxetine (Duloxetine) 30 Mg Capsule.dr 30 MG PO DAILY (Reported) Ergocalciferol (Vitamin D2) (Drisdol) 50,000 Unit Capsule 50,000 UNIT PO Q7D ( Reported) Ferrous Sulfate (Iron) 325 Mg Tablet 325 MG PO BID (Reported) Fexofenadine (Fexofenadine) 180 Mg Tablet 180 MG PO DAILY (Reported) Fluticasone Propionate (Flonase Allergy Relief) 50 Mcg/Actuation [place].susp 9.9 ML NS BID (Reported) Insulin Aspart (NovoLOG U-100 Pen) 100 Unit/Ml Insuln.pen 1 SC QID (Reported) Levothyroxine (Synthroid) 75 Mcg Tablet 75 MCG PO DAILY (Reported) Melatonin/Pyridoxine (Melatonin Sublingual Tablet) 1 Each Tab.subl 5 MG SL HS ( Reported) Multivitamin (Multi Vitamin Daily) 1 Each Tablet 1 EACH PO DAILY (Reported) Mupirocin (Mupirocin Ointment) 22 Gm Oint...g. 1 APPLIC NASAL BID Prescribed by: AMBROSIO VILLARREAL DO Nystatin (Nystatin) 60 Applic/15 Gm Cream 1 APPLIC EXTERNAL BID (Reported) Omeprazole (Omeprazole) 20 Mg Capsule.dr 20 MG PO DAILY (Reported) Oxycodone ER (Oxycontin) 15 Mg Tab.er.12h 15 MG PO HS (Reported) Oxycodone ER (Oxycontin) 30 Mg Tab.er.12h 30 MG PO QAM (Reported) Polyethylene Glycol 3350 (Miralax) 17 Gm Powd.pack 17 GM PO DAILY (Reported) Quetiapine Fumarate (Seroquel) 50 Mg Tablet 75 MG PO HS (Reported) Sennosides (Senna) 8.6 Mg Tablet 8.6 MG PO BID (Reported) Sulfamethoxazole/Trimeth 800-160 mg (Bactrim DS 800-160 mg) 1 Each Tablet 1 TABLET PO BID Prescribed by: AMBROSIO VILLARREAL DO As needed Bisacodyl (Dulcolax Rectal) 10 Mg Supp.rect 10 MG RC DIRECTED PRN PRN For Constipation (Reported) Dextran 70/Hypromellose/Pf (Artificial Tears Drops) 1 Each Droperette 1-2 DROP BOTH_EYES PRN dry eyes (Reported) Docusate Calcium (Stool Softener) 240 Mg Capsule 240 MG PO BID PRN PRN For Constipation (Reported) Hydrocortisone (Hydrocortisone) 453.6 Gm Cream..g. 1 APPLIC EXT WEEKLY PRN PRN rash (Reported) Lactulose (Lactulose) 10 Gm/15 Ml Solution 45-60 ML PO BID PRN PRN For Constipation (Reported) Magnesium Hydroxide (Milk of Magnesia) 400 Mg/5 Ml Oral.susp 30 ML PO DIRECTED PRN PRN For Constipation (Reported) Na Phos,M-B/Na Phos,Di-Ba (Fleet Enema) 133 Ml Enema 133 ML RC PRN For Constipation (Reported) Naproxen Sodium (Naproxen Sodium) 220 Mg Capsule 220 MG PO BID PRN PRN For Pain (Reported) Promethazine (Promethazine) 25 Mg Tablet 25 MG PO Q6H PRN PRN For Nausea ( Reported) Simethicone (Bicarsim Forte) 125 Mg Tablet 125-250 MG PO ACHS PRN PRN gas ( Reported) oxyCODONE (oxyCODONE) 10 Mg Tablet 20 MG PO QID PRN PRN For Pain Prescribed by: RONI LAGUNA, DO Additional med instructions Continue taking your home medications as prescribed. We have started you on an antibiotic called Bactrim. Please take it twice a day until Dec 23. Followup Plan Disposition: SNF Discharge Diet: Low fat, Low Sodium Discharge Activity: Other (Per accepting facility ) Patient Instructions You are being discharged back to [facility]. You had a UTI, likely due to your suprapubic catheter. We have exchanged this catheter for a new one. You also will need to complete the Bactrim antibiotic to fully treat your urinary tract infection. Please follow up with your primary care doctor in 1 week for re-evaluation. Please continue going to the Wound Care clinic here in for treatment of your sacral ulcers. Please turn every 2 hours to off load the wound. Please drink at least 2 Liters of water daily to keep hydrated. Follow-up Provider: Abdirizak Nieto MD Follow-up with PCP in: 1 week copies to: Abdirizak Nieto MD, Hong D DO Dec 19, 2016 15:10
== END 2016-12-19 14:37 | DRG 698 ==
LOC: SED 18:48 → MPC 21:29
PROVIDERS: ADMIT Internal Medicine; ATTEND Internal Medicine
PROC: 0HD8XZZ Extraction of Buttock Skin, External Approach (ICD-10-PCS; principal; 2016-12-14)
DX: T83.518A Infection and inflammatory reaction due to other urinary catheter, initial encounter (principal); G93.41 Metabolic encephalopathy; L89.313 Pressure ulcer of right buttock, stage 3; G82.20 Paraplegia, unspecified; N39.0 Urinary tract infection, site not specified; I10 Essential (primary) hypertension; E11.9 Type 2 diabetes mellitus without complications; L89.159 Pressure ulcer of sacral region, unspecified stage; E03.9 Hypothyroidism, unspecified; K21.9 Gastro-esophageal reflux disease without esophagitis; G47.00 Insomnia, unspecified; M81.0 Age-related osteoporosis without current pathological fracture; G89.29 Other chronic pain; K59.09 Other constipation; Z93.3 Colostomy status; B96.20 Unspecified Escherichia coli [E. coli] as the cause of diseases classified elsewhere; J45.909 Unspecified asthma, uncomplicated; V59.88 Occupant (driver) (passenger) of pick-up truck or van injured in other specified transport accidents; E66.9 Obesity, unspecified; Z68.35 Body mass index [BMI] 35.0-35.9, adult; F32.9 Major depressive disorder, single episode, unspecified; Z87.891 Personal history of nicotine dependence; Z16.39 Resistance to other specified antimicrobial drug; Z22.322 Carrier or suspected carrier of Methicillin resistant Staphylococcus aureus; Z79.4 Long term (current) use of insulin

== ENCOUNTER 2017-08-07 10:16 | Inpatient (IN) | payer MEDICARE, MEDICAID ==
[~2017-08-07] VITALS: Ht 175.3 cm; Wt 114.5 kg
[~2017-08-07 10:16] MED LIST changes: +DEXT1DRO8 BOTH_EYES; -FERR325T39 PO; +FERR325T40 PO; -INSLIS SUBQ; +INSU100I SC; -LORA-302 PO; +MUPI22OI2 NASAL; +OMEP20CA11 PO; -PANT40TA2 PO; -QUET25TA73 PO; +QUET50TA PO; -QUET50TA55 PO; +SULF1TAB35 PO
[2017-08-07 10:18] VITALS: BP 98/71; PULSE 77; RESP 14; O2SAT 99
--- NOTE | 2017-08-07 10:43 | ED.REPORT ---
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 Jameson due to decubitus infection, onset a week ago. She is scheduled for a surgery tomorrow. The pt also complains of mild abdominal pain, decreased appetite, and chills. She denies fever and diaphoresis. The pt finished her antibiotic course today. She last ate last night. Nursing Notes Stated Complaint: WOUND CENTER SENT/DR JAMESON Chief Complaint: General Complaint Nursing Notes Reviewed: Yes (Soysuper, Startcappss not reconcled) Allergies: Coded Allergies: Contrast Media (Verified Allergy, Severe, 07/19/16) TAPE (Verified Allergy, Severe, 07/19/16) amoxicillin (Verified Allergy, Severe, 07/19/16) ceftriaxone (Verified Allergy, Severe, 07/19/16) cefuroxime (Verified Allergy, Severe, 07/19/16) cephalexin (Verified Allergy, Severe, 07/19/16) diazepam (Verified Allergy, Severe, 07/19/16) erythromycin base (Verified Allergy, Severe, 07/19/16) iodine (Verified Allergy, Severe, 07/19/16) metoclopramide (Verified Allergy, Severe, 07/19/16) metronidazole (Verified Allergy, Severe, 07/19/16) tizanidine (Verified Allergy, Severe, 07/19/16) ciprofloxacin (Verified Allergy, Unknown, 12/15/16) Scheduled Alendronate Sodium (Fosamax) 70 Mg Tablet 70 MG PO QW Amino Acids/Protein Hydrolys (Prosource No Carb Liquid Pkt) 30 Ml Liquid.pkt 30 ML PO BID Ascorbic Acid (Vitamin C) 250 Mg Tab.chew 250 MG PO TID Bupropion ER (Bupropion ER) 150 Mg Tablet.er 150 MG PO BID Carvedilol (Coreg) 6.25 Mg Tablet 6.25 MG PO BID Cholecalciferol (Vitamin D3) (Vitamin D3) 50,000 Unit Capsule 50,000 UNIT PO WEEKLY Duloxetine (Duloxetine) 30 Mg Capsule. 30 MG PO HS Ferrous Sulfate (Iron) 325 Mg Tablet 325 MG PO TIDWM Fexofenadine (Fexofenadine) 180 Mg Tablet 180 MG PO DAILY Fluticasone Propionate (Flonase Allergy Relief) 50 Mcg/Actuation [place].susp 2 PUFFS NS BID Insulin Aspart (NovoLOG U-100 Pen) 100 Unit/Ml Insuln.pen 0-12 UNITS SC ACHS per ss Levothyroxine (Synthroid) 75 Mcg Tablet 75 MCG PO DAILY Melatonin/Pyridoxine (Melatonin 5 mg Tablet) 1 Each Tablet 1 EACH PO HS Multivitamin (Multi Vitamin Daily) 1 Each Tablet 1 EACH PO DAILY Nystatin (Nystatin) 60 Applic/15 Gm Cream 1 APPLIC EXTERNAL BID Omeprazole (Omeprazole) 20 Mg Capsule.dr 20 MG PO DAILY Oxycodone ER (Oxycontin) 15 Mg Tab.er.12h 15 MG PO HS Oxycodone ER (Oxycontin) 30 Mg Tab.er.12h 30 MG PO QAM Polyethylene Glycol 3350 (Miralax) 17 Gm Powd.pack 17 GM PO DAILY Quetiapine Fumarate (Seroquel) 50 Mg Tablet 50 MG PO HS Sennosides (Senna) 8.6 Mg Tablet 3 EACH PO BID Scheduled PRN Bisacodyl (Dulcolax Rectal) 10 Mg Supp.rect 10 MG RC DIRECTED PRN PRN For Constipation Dextran 70/Hypromellose/Pf (Artificial Tears Drops) 1 Each Droperette 1-2 DROP BOTH_EYES PRN dry eyes Docusate Calcium (Stool Softener) 240 Mg Capsule 240 MG PO BID PRN PRN For Constipation Hydrocortisone (Hydrocortisone) 453.6 Gm Cream..g. 1 APPLIC EXT WEEKLY PRN PRN rash Hyoscyamine (Hyoscyamine) 0.125 Mg Tablet 0.125 MG PO QID PRN PRN bladder spasms Lactulose (Lactulose) 10 Gm/15 Ml Solution 45-60 ML PO BID PRN PRN For Constipation Lorazepam (Lorazepam) 0.5 Mg Tablet 0.5 MG PO QID PRN PRN For Anxiety Magnesium Hydroxide (Milk of Magnesia) 400 Mg/5 Ml Oral.susp 30 ML PO DIRECTED PRN PRN For Constipation Na Phos,M-B/Na Phos,Di-Ba (Fleet Enema) 133 Ml Enema 133 ML RC DIRECTED PRN PRN For Constipation Oxycodone (Roxicodone) 5 Mg Tablet 20 MG PO Q6H PRN PRN For Pain Promethazine (Promethazine) 25 Mg Tablet 25 MG PO Q6H PRN PRN For Nausea Simethicone (Bicarsim Forte) 125 Mg Tablet 125-250 MG PO ACHS PRN PRN gas Triamcinolone Acet (Triamcinolone Acetonide Cream) 1 Applic/0.25 Gm Cr 1 APPLIC EXT BID PRN PRN For Itching General Time Seen by MD: 10:31 Chief Complaint Other (deculbitus infection) Hx Obtained From: Patient Arrived By: Wheelchair Sudden in Onset?: No Onset Occurred: 4 days ago Symptom Duration: Since onset Quality: Painful (right ischium) Radiation: : Does not radiate Severity: Current: Moderate Severity: Maximum: Moderate Recent Healthcare: Recent doctor visit Past Medical History Past Medical History Notes: Full code Past Medical History T12 paraplegia hyperthyroidism UTI muscle weakness depression 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 Physical Exam Vital Signs Vital Signs Date Time Temp Pulse Resp B/P Pulse Ox O2 Delivery O2 Flow Rate FiO2 08/07/17 10:18 36.7 77 14 98/71 99 Room Air Initial VS: Reviewed, Vital signs abnormal (BP 98 borderline) Head / Eyes: Atraumatic, Normocephalic Neck: Supple, Non-tender, Full range of motion Respiratory: Breath sounds normal, Clear to auscultation, No respiratory distress Extremities: Vascular intact, Neuro intact, No swelling, No tenderness Skin: Warm, Dry, No cyanosis Neurologic: Alert, Oriented, Nonfocal General/Constitutional: Awake, Alert, Cooperative, Not toxic appearing Appearance / Presentation: Positive: Obese Paraplegic Cardiovascular: Heart rate NL, Regular rhythm, Heart sounds NL, No gallop, No murmurs, No rubs Marked lower extremity edema. Abdomen: Atraumatic, Soft Right ischial decubitus wound with concern for osteomyelitis Wound examined by wound care clinic prior to arrival so the dressing was not taken down. Colostomy in the left lower quadrant Papable and non-tender midline hernia that is easily reducible. Interpretation & Diagnostics Lab Results Interpretation Result Diagram: 08/07/17 1047 08/07/17 1047 Test 08/07/17 10:47 08/07/17 11:09 White Blood Count 18.2th/mm3 (3.8-10.1) Red Blood Count 4.28mil/mm3 (3.90-5.20) Hemoglobin 10.8g/dL (12.0-15.6) Hematocrit 34.5% (35.0-46.0) Mean Corpuscular Volume 80.6fL (81-100) Mean Corpuscular Hemoglobin 25.2pg (27.0-35.0) Mean Corpuscular Hemoglobin Concent 31.3% (32.0-37.0) Red Cell Distribution Width 18.1% (12.3-15.4) Platelet Count 643bil/L (150-400) Neutrophils (%) (Auto) 73.4% (40-74) Lymphocytes (%) (Auto) 11.2% (14-46) Monocytes (%) (Auto) 6.8% (4-12) Eosinophils (%) (Auto) 5.9% (0-5) Basophils (%) (Auto) 0.9% (0-3) Erythrocyte Sedimentation Rate 65mm/hr (0-40) Sodium Level 135mEq/L (134-144) Potassium Level 4.3mEq/L (3.5-5.2) Chloride Level 99mEq/L (97-108) Carbon Dioxide Level 18mmol/L (18-29) Blood Urea Nitrogen 39mg/dL (8-27) Creatinine 1.88mg/dL (0.57-1.00) Estimat Glomerular Filtration Rate 39mL/min (>59) Glucose Level 132mg/dL (60-99) Lactic Acid Level 1.1mmol/L (0.4-2.0) Calcium Level 8.8mg/dL (8.5-10.1) Total Bilirubin 0.2mg/dL (0.0-1.2) Aspartate Amino Transf (AST/SGOT) 19U/L (0-50) Alanine Aminotransferase (ALT/SGPT) 31U/L (0-32) Alkaline Phosphatase 154U/L (25-165) Total Protein 7.6g/dL (6.4-8.4) Albumin 2.9g/dL (3.4-5.0) Procalcitonin 0.26ng/mL (0.00-0.08) Urine Color Yellow (YELLOW) Urine Appearance Cloudy (CLEAR,HAZY) Urine pH 6.5 (5.0-8.0) Urine Specific [place] 1.025 (1.003-1.035) Urine Protein 30mg/dL (NEG,TRACE) Urine Glucose (UA) Negativemg/dL (NEGATIVE) Urine Ketones Negativemg/dL (NEGATIVE) Urine Occult Blood Small (NEGATIVE) Urine Nitrite Positive (NEGATIVE) Urine Bilirubin Negative (NEGATIVE) Urine Urobilinogen Normalmg/dL (NORMAL) Urine Leukocyte Esterase Moderate (NEGATIVE) Urine RBC 3-10/hpf (0-2) Urine WBC Packed/hpf (0-5) Urine Epithelial Cells Occasional/hpf (NONE-MOD) Urine Crystals None seen (NONE SEEN) Urine Bacteria Moderate/hpf (NONE-FEW) Urine Hyaline Casts None/lpf (NONE) Urine Granular Casts None seen (NONE SEEN) Urine Waxy Casts None seen (NONE SEEN) Urine Red Blood Cell Casts None seen (NONE SEEN) Urine White Blood Cell Casts None seen (NONE SEEN) Urine Mucus None seen (None Seen) Urine Trichomonas None seen (NONE SEEN) Urine Yeast None (NONE SEEN) Urinalysis Comment None Urine Culture Reflexed Indicated Lab Results Interpretation: CBC positive for leukocytosis CMP renal insufficiency, marginally increased from previous Blood cultures pending UA with multiple markers of infection, but from a chronic Rojas, culture pending Lactic acid normal Re-Eval/Medical Decision Med Decision/Clinical Course This is a 62-year-old female who is a patient with a T12 paraplegia, morbid obesity, chronic UTI, he was sent over for suspected infected necrotic and possible osteomyelitic right usual wound from the wound care center. The plan is to have her placed in IV antibiosis, admitted, and to go to the OR for debridement and exploration tomorrow. The patient reports having some chills over the past few days, and feeling weak-but has no other specific complaints. She denies cough, shortness of breath. She denies nausea or vomiting. On exam her initial blood pressures in the 90s, although repeat blood pressure without intervention was normal at 110-117 systolic, she had no further episodes of hypertension. She is not febrile, not clinically toxic, not tachycardic. Given she just had her issue wound redressed and is uncomfortable respiratory, I did not take down the dressing to be exam-please see the detailed wound explanation from the surgery note by Dr. Jameson from minutes ago. An IV was placed, labs are drawn and are notable for moderate leukocytosis. Blood cultures are pending. She has a chronic urine and a Rojas was sent which does have markers of infection, but at this point is difficult to say it is a UTI given I catheter, again cultures are pending. No allergies, and clinically that strong concern is the right if she will site, septic discussion with Dr. Jameson the plan was vancomycin plus clindamycin given her medication allergy profile. The case was discussed with the admitting hospitalist. Source of Hx: Old records Time of Eval: 10:34 Re-Evaluation/Progress Note: Rechecked pt. Discussed diagnosis and plan to admit for surgery tomorrow. Pt understands and agrees with the plan for admission. All questions addressed. Consultation #1: Referral / Consult Name: Chase Luna MD Consulted With: Hospitalist Call Returned at: 11:14 Undraped Artist Model: Will see patient, Agrees with eval, Agrees with plan, Accepts admit Consultation #2: Referral / Consult Name: Jose Jameson MD Consulted With: Surgeon Requested Call at: 11:15 Call Returned at: 11:20 Undraped Artist Model: Agrees with eval, Agrees with plan Note: Dr. Jameson recommends Clindamycin and Vancomycin. He will take the pt to the OR tomorrow. Consultation #3: Call Returned at: 11:48 Note: Consulted pharmacy about antibiotic coverage given the pt's multiple allergies. They recommend meropenem. Differential Diagnosis: Positive: Urinary tract infection, Negative: Abdominal pain, Acute coronary syndrome, Fracture, Malingering, Neutropenia, Seizure disorder Counseled Regarding: Diagnosis, Need for admission Discharge & Departure Primary Impression: Decubitus ulcer of right ischial area Pressure ulcer stage: unstageable Qualified Code: L89.310 - Pressure ulcer of right buttock, unstageable Additional Impressions: Infected decubitus ulcer Pressure ulcer stage: unspecified pressure ulcer stage Qualified Code: L89.90 - Pressure ulcer of unspecified site, unspecified stage Urinary tract infection Urinary tract infection type: catheter-associated UTI Indwelling urinary catheter type: indwelling urethral catheter Encounter type: initial encounter Qualified Code: T83.511A - Infection and inflammatory reaction due to indwelling urethral catheter, initial encounter Paraplegia Disposition: ADMITTED TO HOSPITAL Referrals: Abdirizak Nieto MD (PCP) Scribe Attestation Portions of this note were transcribed by Mariella Izquierdo. I,, personally performed the history,physical exam and medical decision-making;I reviewed and confirmed the accuracy of the information in the transcribed note. Signed by Jacquie Lopes. 08/07/17 copies to: Abdirizak Nieto MD, Matthew F MD Aug 07, 2017 10:42 Mariella Izquierdo Aug 07, 2017 10:50
[2017-08-07] MEDS ORDERED: 0.9% Sodium Chloride 500 ML IV ONE (10:55)
[2017-08-07 11:00] LABS: BASOPHILS % (AUTO) 0.9 % (0-3); EOSINOPHILS % (AUTO) 5.9 % (0-5); MONOCYTES % (AUTO) 6.8 % (4-12); Mean Corpuscular Hemoglobin 25.2 pg (27.0-35.0); Mean Corpuscular Volume 80.6 fL (81-100); NEUTROPHILS % (AUTO) 73.4 % (40-74); Platelet Count 643 bil/L (150-400)
[2017-08-07] MEDS ORDERED: Vancomycin Dose per Pharmacist XX ONE (11:20)
[2017-08-07] MEDS ORDERED: Clindamycin Inj 900 MG in IV Premix 1 EACH IV ONE (11:20)
[2017-08-07 11:25] LABS: APPEARANCE,URINE CLOUDY (CLEAR,HAZY); COLOR,URINE YELLOW (YELLOW)
[2017-08-07 11:26] LABS: OCCULT BLOOD,URINE SMALL (NEGATIVE); PH,URINE 6.5 (5.0-8.0)
[2017-08-07 11:27] LABS: UROBILINOGEN,URINE NORMAL (NORMAL)
[2017-08-07] MEDS ORDERED: Ondansetron 2 mg/mL 2 mL Inj IVPUSH PRN (11:35)
[2017-08-07] MEDS ORDERED: Polyethylene Glycol (PEG) 17 Gm Powder PO PRN (11:35)
[2017-08-07] MEDS ORDERED: Alum-Mag Hydrox-Simeth 30 mL Suspension PO PRN (11:35)
[2017-08-07] MEDS: 0.9% Sodium Chloride 1,000 ML IV SCH ×2 (12:02→21:33)
[2017-08-07] MEDS ORDERED: Meropenem Inj 500 MG in 0.9% Sodium Chloride 50 ML IV ONE (12:10)
[2017-08-07 12:17] VITALS: BP 127/66; PULSE 80; RESP 20; O2SAT 98
[2017-08-07] MEDS ORDERED: Vancomycin Inj 1,500 MG in 0.9% Sodium Chloride 500 ML IV SCH (12:30)
[2017-08-07 13:04] VITALS: BP 110/69; PULSE 85; RESP 19; O2SAT 97
--- NOTE | 2017-08-07 13:53 | NUR ---
Inpatient Wound and Ostomy Nurse Patient seen by RICHARD RN in ER and again shortly after arriving to Room 1031. She was alert, oriented, pleasant, and cooperative. Unstageable pressure injury to R IT measures 10 cm L x 12 cm W and deepest tunnel is 7 cm D. Wound extends right up to anus and anteriorly onto R labia. Multiple islands of necrotic, dark brown eschar noted within wound bed, as well as wet, stringy, well-adhered yellow and brown slough, totalling about 50% of wound bed. The remainder of wound bed is glossy pink. Drainage is odorous and purulent. Irregular margins are well-adhered at proximal plane; peeling, flaking, and chapped at distal plane. Patient stated that she has tape allergy and this bright erythemic response at distal wound margins appears possibly as contact dermatitis or allergy. A few <0.5 cm outlying wounds in scattered pattern are crusted and dry. Wound was cleansed with NS then packed with Kerlix moistened with NS. Two Aquacel Extra Ag were placed over Kerlix to supplement absorption. All of this was then covered with a KerraFoam Gentle Border sacral dressing. Hopefully this dressing, with its silicone facing and border, will result in calmer periwound skin. It is also more absorbent than ABD and will hopefully not need to be changed until OR tomorrow. Unstageable pressure injury found on posterior L thigh, measures 1.5 cm L x 3 cm W x 0.1 cm D, covered in well-adhered yellow slough. No drainage noted. Edges well-adhered, periwound erythemic halo 0.1 cm. RICHARD RN presumes this wound is a result of catheter tubing being placed under patient's leg for an extended period. This wound was cleansed and blotted dry, then covered with small piece of hydrocolloid which should encourage autodebridement. Deep tissue injury found to patient's R medial heel, measuring 4 cm L x 4 cm W, extending erythemic ring with very light/white center, almost blistered-appearing but no roof or raised tissue, only discoloration with red circumference. Surface is boggy and surrounding tissue is blanchable. Patient stated that she thought this wound began a few months ago when SNF started placing her on L side-lying position (to encourage R IT healing). CWON placed patient's foot in green Ehob True-Davina pressure relieving boot which patient stated she would be able to tolerate. A wedge was attached to velcro on lateral side to prevent foot from rolling laterally. Deep tissue injury found to patient's L lateral 5th metatarsal tuberosity, approximately 3 cm L x 1 cm W. Slightly yellow center is surrounded by erythemic area which is nonblanchable, then extending to blanchable. Surface is boggy. Again, the location of this wound correlates with R side lying position as does the R medial heel PI. Wound was covered with 4x4 bordered Mepilex. Stoma in LLQ looks to be a colostomy. Patient stated that she has had this for about five years and has a product preference. System clean, intact, and patent, and so, was not removed. Stoma pink and appropriate height and tension; mushy brown stool noted in pouch. Suprapubic cath T-gauze changed. Site slightly erythemic with yellow exudate accumulated at site. Hopefully packing will not need replacement until after surgery. If secondary dressing becomes saturated, primary RN can change to bordered sacral Mepilex (which will be gentler to patient's skin) or multiple-layer ABDs and tape. CWON will check with surgery tomorrow for any ongoing wound care orders.
[2017-08-07] MEDS ORDERED: MELA1TAB16 PO (14:33)
--- NOTE | 2017-08-07 14:36 | PCM.HPMED ---
Subjective Date of Service Aug 07, 2017 Primary Provider: Admitting Physician: Chase Luna MD Primary Care Physician: Abdirizak Nieto MD Attending Physician: Chase Luna MD Admit Status: From the Emergency Department, Admit to Red Team Chief Complaint: sent from wound care clinic to emergency room by surgeon Dr Hamlin due to infected decubitus ulcer for debridement. History of Present Illness: 62 y/o female patient with past medical history of T12 paraplegia for many decades, hyperthyroidism, hypertension, type II diabetes, neurogenic bladder with suprapubic catheter, s/p colostomy, and history of frequent UTIs, history of decubitus ulcer was sent from wound care clinic by Dr Hamlin for debridement. Patient has been dealing with right sacral decubitus ulcer for the last several weeks with bid at [facility] and follow-up at wound care clinic. Patient states wound has recently got worse and was started on antibiotics a week ago with more frequent wound care . Dr Hamlin evaluated her today , patient was noted to have 8x9 cm deep right sacral decubitus ulcer with extensive necrotic tissue. Workup revealed ESR 140, CRP 8.3, albumin 2.5, WBC 17.7 Patient states she has no fever but has been having chills for the last 1 week. Wheelchair-bound. Able to transfer. Long-term resident at [facility] for 4 years. Has been paraplegic for over 4 decades. ED course: vitals unremarkable,wbc 18.2,ESR 65,Hb 10.8,plt 643,Cr 1.88( baseline 1.4),procal 0.26 vanco and clinda given in ED Review of Systems: Comprehensive review of systems performed, pertinent positives and negatives included in history of present illness Allergies Coded Allergies: Contrast Media (Verified Allergy, Severe, 07/19/16) TAPE (Verified Allergy, Severe, 07/19/16) amoxicillin (Verified Allergy, Severe, 07/19/16) ceftriaxone (Verified Allergy, Severe, 07/19/16) cefuroxime (Verified Allergy, Severe, 07/19/16) cephalexin (Verified Allergy, Severe, 07/19/16) diazepam (Verified Allergy, Severe, 07/19/16) erythromycin base (Verified Allergy, Severe, 07/19/16) iodine (Verified Allergy, Severe, 07/19/16) metoclopramide (Verified Allergy, Severe, 07/19/16) metronidazole (Verified Allergy, Severe, 07/19/16) tizanidine (Verified Allergy, Severe, 07/19/16) ciprofloxacin (Verified Allergy, Unknown, 12/15/16) Home Medications Alendronate Sodium (Fosamax) 70 Mg Tablet 70 MG PO QW Ascorbic Acid (Vitamin C) 250 Mg Tab.chew 250 MG PO BID Bupropion ER (Bupropion ER) 150 Mg Tablet.er 150 MG PO BID Carvedilol (Coreg) 6.25 Mg Tablet 6.25 MG PO BID Duloxetine (Duloxetine) 30 Mg Capsule.dr 30 MG PO DAILY Ergocalciferol (Vitamin D2) (Drisdol) 50,000 Unit Capsule 50,000 UNIT PO Q7D Ferrous Sulfate (Iron) 325 Mg Tablet 325 MG PO BID Fexofenadine (Fexofenadine) 180 Mg Tablet 180 MG PO DAILY Fluticasone Propionate (Flonase Allergy Relief) 50 Mcg/Actuation [place].susp 9.9 ML NS BID Insulin Aspart (NovoLOG U-100 Pen) 100 Unit/Ml Insuln.pen 1 SC QID Levothyroxine (Synthroid) 75 Mcg Tablet 75 MCG PO DAILY Melatonin/Pyridoxine (Melatonin Sublingual Tablet) 1 Each Tab.subl 5 MG SL HS Multivitamin (Multi Vitamin Daily) 1 Each Tablet 1 EACH PO DAILY Mupirocin (Mupirocin Ointment) 22 Gm Oint...g. 1 APPLIC NASAL BID Nystatin (Nystatin) 60 Applic/15 Gm Cream 1 APPLIC EXTERNAL BID Omeprazole (Omeprazole) 20 Mg Capsule.dr 20 MG PO DAILY Oxycodone ER (Oxycontin) 15 Mg Tab.er.12h 15 MG PO HS Oxycodone ER (Oxycontin) 30 Mg Tab.er.12h 30 MG PO QAM Polyethylene Glycol 3350 (Miralax) 17 Gm Powd.pack 17 GM PO DAILY Quetiapine Fumarate (Seroquel) 50 Mg Tablet 75 MG PO HS Sennosides (Senna) 8.6 Mg Tablet 8.6 MG PO BID Sulfamethoxazole/Trimeth 800-160 mg (Bactrim DS 800-160 mg) 1 Each Tablet 1 TABLET PO BID Scheduled PRN Bisacodyl (Dulcolax Rectal) 10 Mg Supp.rect 10 MG RC DIRECTED PRN PRN For Constipation Dextran 70/Hypromellose/Pf (Artificial Tears Drops) 1 Each Droperette 1-2 DROP BOTH_EYES PRN dry eyes Docusate Calcium (Stool Softener) 240 Mg Capsule 240 MG PO BID PRN PRN For Constipation Hydrocortisone (Hydrocortisone) 453.6 Gm Cream..g. 1 APPLIC EXT WEEKLY PRN PRN rash Lactulose (Lactulose) 10 Gm/15 Ml Solution 45-60 ML PO BID PRN PRN For Constipation Magnesium Hydroxide (Milk of Magnesia) 400 Mg/5 Ml Oral.susp 30 ML PO DIRECTED PRN PRN For Constipation Na Phos,M-B/Na Phos,Di-Ba (Fleet Enema) 133 Ml Enema 133 ML RC PRN For Constipation Naproxen Sodium (Naproxen Sodium) 220 Mg Capsule 220 MG PO BID PRN PRN For Pain Promethazine (Promethazine) 25 Mg Tablet 25 MG PO Q6H PRN PRN For Nausea Simethicone (Bicarsim Forte) 125 Mg Tablet 125-250 MG PO ACHS PRN PRN gas oxyCODONE (oxyCODONE) 10 Mg Tablet 20 MG PO QID PRN PRN For Pain PMH T12 paraplegia with muscle weakness hypothyroidism Frequent UTIs depression History of frequent encephalopathy secondary to UTI Asthma Hypertension Surgical History neck and back surgery colostomy Family History non contributory Social History Hx Alcohol Use: No Hx Substance Use: No Smoking Status: Former Smoker Exam Vital Signs Vital Sign - Last Date Time Temp Pulse Resp B/P Pulse Ox O2 Delivery O2 Flow Rate FiO2 08/07/17 13:04 36.5 85 19 110/69 97 Room Air Exam Gen. patient is lying comfortably in hospital bed HEENT: Head is normocephalic atraumatic, Pupils equal and reactive, extraocular movements intact, Lungs clear to auscultation bilaterally Heart regular rate and rhythm without murmurs gallops or rubs Abdomen colostomy in place. ventral hernia Extremities extensive decubitus ulcer 6x10cm deep right sacral decub ulcer,deep all the way to bone,significant necrotic tissue Psych alert and oriented to person place and time Neuro cranial nerves II through XII are grossly intact,T12 paraplegia Lymph: There is no lymphadenopathy appreciated in the cervical supra infraclavicular regions : suprapubic cathater in place Lab and Diagnostics Result Diagram: 08/07/17 1047 08/07/17 1047 Assessment & Plan 62 y/o female patient with past medical history of T12 paraplegia for many decades, hyperthyroidism, hypertension, type II diabetes, neurogenic bladder with suprapubic catheter, s/p colostomy, and history of frequent UTIs, history of decubitus ulcer was sent from wound care clinic by Dr Hamlin for debridement. # Infected decubitus ulcer with suspected osteomyelitis,acute -wbc 18.2,ESR 65,Hb 10.8,plt 643,Cr 1.88( baseline 1.4),procal 0.26 -she has leukocytosis and acute kidney injury but no clinical evidence of sepsis.Anthony due to dehydration probably -Vancomycin , meropenem and clindamycin started in ED, continued with that -Blood culture sent, patient received oral antibiotics recently. MRSA nares requested -npo after midnight for debridement and bone biopsy tomorrow -ID consult placed -NS at 100ml/h -Pain controlled with dilaudid -clinitron bed if available -Wound care changed dressing today -may need PICC soon if osteomyelitis and blood culture negative # Complicated UTI,acute,poa -UA with pyuria , Urine culture sent. -Continue antibiotics as above # Acute kidney injury on CKD -Cr 1.88( baseline 1.4) -Possibly due to dehydration. Unknown what antibiotics she was taking recently for decub ulcer. She was also treated for pneumonia recently -NS at 100ml/h -Follow kidney function test # Type II diabetes -Medium dose correctional scale insulin protocol # HTN - continue home dose carvedilol - Stable # Hypothyroidism - continue home dose levothyroxine # Osteoporosis - continue home alendronate every Saturday #GERD - continue home dose omeprazole #Depression - continue home med Bupropion # T12 paraplegia with ostomy -paraplegic care with frequent turning # Chronic pain - home dose Duloxetine and scheduled Oxycontine continued # Chronic constipation - home dose Senna BID, MOM continued PRN - Added Lactulose 45mg BID to her regimen at request -Improved output # Obesity, BMI 37.3 - With sacral ulcers and increased BMI, will require specialized bed Full code per patient Patient admitted under inpatient status with expected length of stay > 2 midnights for severity of present symptoms, complexities of treatment plan and risk for adverse events Pain Evaluation: Adequate Pain Control Resuscitation Status: CPR: Attempt Resuscitation copies to: Abdirizak Nieto MD, Melaku MD Aug 07, 2017 14:36 - Acetaminophen as needed for mild pain/fever/headache - Bowel regimen as needed - Antiemetic as needed Resuscitation Status: CPR: Attempt Resuscitation Chase Luna MD Aug 07, 2017 14:36
[2017-08-07] MEDS ORDERED: CHOL500050 PO (14:39)
[2017-08-07] MEDS ORDERED: NA P133E23 RC (14:44)
[2017-08-07] MEDS ORDERED: AMIN30LI25 PO (14:44)
[2017-08-07] MEDS ORDERED: LORA0.5T PO (14:44)
[2017-08-07] MEDS ORDERED: OXYC-474 PO (14:46)
[2017-08-07] MEDS ORDERED: HYOS-22 PO (14:47)
[2017-08-07] MEDS ORDERED: KEN25CR EXT (14:49)
[2017-08-07] MEDS ORDERED: Magnesium Hydroxide 355 mL Oral Suspension PO PRN (15:05)
[2017-08-07] MEDS ORDERED: Lactulose 10 Gm/15 mL 473 mL Solution PO PRN (15:05)
[2017-08-07] MEDS ORDERED: Sodium Biphos-Phos 133 mL Enema RECTAL PRN (15:05)
[2017-08-07] MEDS ORDERED: Magnesium Hydroxide 10 mL Oral Concentration PO PRN (15:30)
[2017-08-07 15:35] VITALS: PULSE 82
[2017-08-07] MEDS ORDERED: Glucose 40% Oral Gel 15 Gm Tube PO PRN (15:40)
[2017-08-07] MEDS: HYDROmorphone 1 mg/mL Inj IVPUSH PRN ×2 (16:05→19:58)
[2017-08-07] MEDS ORDERED: Meropenem Inj 1,000 MG in 0.9% Sodium Chloride 100 ML IV SCH (16:30)
--- NOTE | 2017-08-07 17:50 | NUR ---
Admit Pt arrived to [facility] at 1300 via stretcher from ed w/ tech. Pt is paraplegic, lift used for transfer. Pt has colostomy and suprapubic cath poa. Pt is alert to self and place, but needs frequent reorientation. Pt arrives with many skin problems, see WC note. Pt oriented to room and call light, pt demonstrates appropriate use of call light.
[2017-08-07] MEDS: Insulin LISPRO 300 Unit/3 mL Inj SUBQ SCH ×2 (18:27→22:00)
[2017-08-07 18:47] VITALS: BP 138/80; PULSE 85; RESP 18; O2SAT 99
[2017-08-07] MEDS: DULoxetine 30 mg DR Capsule PO SCH (19:57)
[2017-08-07] MEDS: LORazepam 0.5 mg Tablet PO PRN (19:58)
[2017-08-07] MEDS: buPROPion SR 150 mg ER12 Tablet PO SCH (20:26)
[2017-08-07] MEDS ORDERED: Clindamycin Inj 600 MG in IV Premix 1 EACH IV SCH (20:30)
[2017-08-07] MEDS: Polyethylene Glycol (PEG) 17 Gm Powder PO SCH (20:34)
[2017-08-07] MEDS: Meropenem Inj 1,000 MG in 0.9% Sodium Chloride 100 ML IV SCH (22:18)
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
[2017-08-08] VITALS (15 sets, daily range): BP systolic 88–130; BP diastolic 51–87; PULSE 74–90; RESP 13–18; O2SAT 94–100
[2017-08-08] MEDS: LORazepam 0.5 mg Tablet PO PRN (04:30)
[2017-08-08] MEDS: HYDROmorphone 1 mg/mL Inj IVPUSH PRN ×3 (04:30→20:59)
[2017-08-08 06:07] LABS: BASOPHILS % (AUTO) 0.9 % (0-3); EOSINOPHILS % (AUTO) 6.8 % (0-5); MONOCYTES % (AUTO) 8.6 % (4-12); Mean Corpuscular Hemoglobin 25.7 pg (27.0-35.0); Mean Corpuscular Volume 81.6 fL (81-100); NEUTROPHILS % (AUTO) 72.5 % (40-74); Platelet Count 534 bil/L (150-400)
[2017-08-08 06:29] LABS: INR 1.02 ratio
--- NOTE | 2017-08-08 06:33 | NUR ---
Pain Pt continues to report pain 7-07/28, rec'd oxycodone and dilaudid per PRN orders per Pt request. Pt with increased anxiety and requested PRN ativan with + effects. Pt decube to buttocks with serous drainage, dressing reinforced. Pt on clinitron bed. Call light in reach. Care continues.
[2017-08-08 06:46] LABS: Magnesium 1.7 mg/dL (1.6-2.6)
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
[2017-08-08] MEDS: 0.9% Sodium Chloride 1,000 ML IV SCH ×2 (07:24→23:00)
[2017-08-08] MEDS: Insulin LISPRO 300 Unit/3 mL Inj SUBQ SCH ×4 (08:00→22:00)
[2017-08-08] MEDS ORDERED: Propofol 10,000 mCg/mL 20 mL Inj ONE (08:20)
[2017-08-08] MEDS ORDERED: Phenylephrine/NS 100 mCg/mL 10 mL Syringe IVPUSH ONE (08:20)
[2017-08-08] MEDS ORDERED: fentaNYL-PF 50 mCg/mL 2 mL Inj ONE (08:20)
[2017-08-08] MEDS ORDERED: Rocuronium 10 mg/mL 5 mL Inj ONE (08:20)
[2017-08-08] MEDS ORDERED: Neostigmine 1 mg/mL 10 mL Inj ONE (08:20)
[2017-08-08] MEDS ORDERED: Glycopyrrolate 0.2 MG/ML 1mL Inj ONE (08:20)
[2017-08-08] MEDS ORDERED: Vancomycin Dose per Pharmacist XX SCH (08:30)
[2017-08-08] MEDS: Meropenem Inj 1,000 MG in 0.9% Sodium Chloride 100 ML IV SCH ×2 (08:50→23:00)
[2017-08-08] MEDS: buPROPion SR 150 mg ER12 Tablet PO SCH ×2 (08:50→22:58)
[2017-08-08] MEDS: DAPTOmycin Inj 750 MG in 0.9% Sodium Chloride 50 ML IV SCH (10:12)
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
--- NOTE | 2017-08-08 14:28 | NUR ---
Inpatient Wound Nurse Patient seen for RLE wounds. 6 cm L x 4 cm W bulla on lateral anterior RLE filled with straw-colored fluid surrounded by erythemic tissue, tender to touch, no weeping in this periwound tissue. Bulla was drained and gently blotted with NS soaked gauze, then covered with large bordered sacral Mepilex. The silicone facing and border of this dressing should be gentler to patient's periwound skin. R foot plantar 5th met head callous wound, approximately 1 cm L x 1 cm W x 0.1 cm D, dark pink wound bed once Dr. Robin puente debrided overlaying crust. Very small amount of sanguinous fluid coagulated quickly. Wound was cleansed, blotted dry, and a 0.5 cm thick moleskin was cut into C-shape and placed over met head for off-loading. This was then covered with bordered 4 x 4 Mepilex dressing. All nails were trimmed with podiatry trimmers and Atrac-Tain (urea and crosa-naouyi-tvlm) lotion was applied to thick, scaling feet, avoiding space between toes. Stage 3 pressure injury to R posterior gluteal/thigh fold, beefy red wound bed, macerated, ruffled margins with mild epibole. 1.5 cm L x 1.5 cm W x 0.2 cm D. Stage 2 pressure injury to R intergluteal fold with beefy red wound bed, macerated margins. 1 cm L x 1 cm W x 0.2 cm D. Wounds were cleansed and coated heavily with Calmoseptine. Entire perineum, skin folds, and panniculus were coated with thick exudate with cottage-cheese texture, very odorous, when, once cleansed away, revealed bright, erythemic rash with multiple skin breaks, weeping and oozing. Satellite lesions noted on anterior thighs and distinct rash margins extend proximally on lower abdomen and distally on anterior thighs. All areas were thoroughly cleansed with soap and water washcloth, then rinsed. Dry towels were placed into skin folds and left in place for short period to absorb moisture. Mepilex sheet foam was cut into strips and placed into folds. Nystatin ointment has been ordered and should be applied to all perineal and pannicular rash areas BID. Once Nystatin ointment has been rubbed in as thoroughly as possible, Mepilex sheet foam should be placed into skin folds. This will wick moisture out of folds and hopefully help these deep folds dry out. A Barclay cath will be placed to improve incontinence associated maceration and improve skin integrity. Once Barclay is placed and fungal rash has improved, dressings will be applied to patient's pressure injuries. At this time, no dressings will stick onto Nystatin coated skin and getting fungus rash improved is priority, as PIs are not likely to heal in presence of such extensive fungus. RICHARD will check on patient's wounds daily. Addendum: 08/08/17 at 1500 by BING ASHBY RN RICHARD HDZ has charted on incorrect patient. Please disregard this note.
--- NOTE | 2017-08-08 14:37 | NUR ---
NUTRITION ASSESSMENT: ASSESS: 62 YO female admitted for infected decub ulcer. Pt is currently NPO awaiting I and D today. 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 LABS: Reviewed. BUN 37, Cr 1.89, Glu 126, Alb 2.5. MEDS: Reviewed. GI: No colostomy output reported yet. SKIN: Un-stageable PI on R ischial tuberosity and posterior L thigh, DTI of R medial heel and L lateral 5th metatarsal tuberosity. CURRENT WT: 114.5 kg. IBW: 65.9 kg. DIET: NPO for procedure. Pt on Heart Healthy, Diabetic diet with po intake of 75-100% prior to NPO status. EST. NEEDS (WOUNDS, OBESITY, PARAPLEGIA): 2674-1576 kcals (22-30 kcals/kg BW), 75-115 g protein (1.2-1.8 g/kg IBW) NUTRITION DIAGNOSIS: 1.) Increased nutrient needs related to increased demand for nutrient as evidenced by current skin issues. NUTRITION INTERVENTION: 1.) Will add glucerna BID between meals to encourage adequate po intake to support wound healing. 2.) Will add Avinash and diet sprite BID to support wound healing. MONITOR / EVAL: PO intake, labs, wounds, nutritional status. Follow per moderate nutritional risk guidelines.
--- NOTE | 2017-08-08 15:58 | NUR ---
Social Work: Initial Assessment D: Per EMR review, patient is a 62 year old female admitted for infected decubitis. Patient is Medicare with [employer]; pt states she has no LTC or VA benefits. PCP is Aron Nieto MD. NOK is not provided. Advanced directives not on file. ACCELERATOR TECHNICIAN l/m with admissions staff at [facility] if the patient has completed these or a POLST form. Readmit score is high, 3/8. ACCELERATOR TECHNICIAN met with the patient at bedside. Sw role explained, contact infromation and d/c planning checklist provided. See initial assessment. Patient is a LTC resident at [facility]. She confirms she wishes to return there. She uses an electric w/c at baseline and requires staff assist with a saji for transfers. ACCELERATOR TECHNICIAN spoke with Tawana at [facility]. They can accept the patient back when she is medically stable. They already have access and a CM order to arrange for return to SNF is already placed. PPW on chart. A: Pt who is a paraplegic and requires saji lift for transfers. Patient may require BLS transport depending on the status of her decubis wounds. P: Anticipate discharge back to [facility] with Dr. Nieto to follow. ACCELERATOR TECHNICIAN to continue to follow to assess for discharge needs including possible BLS transport and need for clinitron bed JUNITO Solorzano Addendum: 08/08/17 at 1605 by GRANT DEXTER SS Amended: Links added.
[2017-08-08] MEDS ORDERED: Lactated Ringer's 1,000 ML IV ONE (17:47)
[2017-08-08] MEDS ORDERED: Lactated Ringer's 1,000 ML IV SCH (18:28)
[2017-08-08] MEDS ORDERED: Lactated Ringer's 500 ML IV PRN (18:28)
[2017-08-08] MEDS ORDERED: Labetalol 5 mg/mL 20 mL Inj IV PRN (18:30)
[2017-08-08] MEDS ORDERED: HYDROmorphone 1 mg/mL Inj IVPUSH PRN (18:30)
[2017-08-08] MEDS ORDERED: Atropine 0.4 mg/mL Inj IVPUSH PRN (18:30)
[2017-08-08] MEDS ORDERED: Phenylephrine 10,000 mCg/mL Inj IVPUSH PRN (18:30)
[2017-08-08] MEDS ORDERED: EPHEDrine Sulfate 50 mg/mL Inj IVPUSH PRN (18:30)
[2017-08-08] MEDS ORDERED: Ondansetron 2 mg/mL 2 mL Inj IVPUSH PRN (18:30)
[2017-08-08] MEDS ORDERED: fentaNYL-PF 50 mCg/mL 2 mL Inj IVPUSH PRN (18:30)
--- NOTE | 2017-08-08 18:34 | NUR ---
Transfer to OR Pt. transferred to OR via gurney at 1650 in stable condition. Transferred via saji lift, which pt. tolerated well. Prior to transfer, pt. c/o pain and some nausea. 1mg dilaudid and 4 mg zofran given. Report given to AIR TRAFFIC SUPERVISOR.
[2017-08-08] MEDS ORDERED: Dextrose 10% 250 ML IV PRN (18:40)
--- NOTE | 2017-08-08 19:31 | PCM.SURGPO ---
Immediate Operative Note Date of Surgery: Aug 08, 2017 Pre Operative Diagnosis Ischiosacral decubitus ulcer Post Operative Diagnosis Ischiosacral decubitus ulcer Procedure Sharp wound debridement of ischiosacral decubitus ulcer and application of wound vacuum therapy Surgeon and Skip Pitman Surgeon: Abdon Hamlin MD Assistants: Susy Mazariegos MD Findings Necrotic tissue down to muscle. No bone involvement. Debrided back to bleeding tissue. Complications There were no periprocedural complications identified. Surgical Specimen Removed: No Specimen sent to Pathology: No Anesthetic Administered: GA Grafts, Implants: None Output, Estimated Blood Loss: 5 Blood Admin during surgery: No Susy Mazariegos MD Aug 08, 2017 19:31
--- NOTE | 2017-08-08 19:33 | PCM.ANEP1 ---
Post Anesthesia PACU Phase 1 Assessment Vital Signs Vital Signs Date Time Temp Pulse Resp B/P Pulse Ox O2 Delivery O2 Flow Rate FiO2 08/08/17 13:13 37.2 81 14 126/77 98 Room Air Anesthetic Administered: GA Level of Alertness: Awake, talking PALACIOS's with Equal Strength: Yes Pain: No Nausea or Vomiting: No CV Function & Hydration Stable: No Airway Device: Oxygen Delivery: Room Air Lungs: Normal Air Movement PACU Phase 2 Assessment Complications: No Follow up Care: No Patient Instructions Provided: N/A Ramirez Felton MD Aug 08, 2017 19:33
[2017-08-08] MEDS: DULoxetine 30 mg DR Capsule PO SCH (22:58)
--- NOTE | 2017-08-08 23:11 | PCM.SURGOP ---
Surgical Operative Report Date of Service: Aug 08, 2017 Pre Operative Diagnosis Right ischial decubitus ulcer with soft tissue necrosis Post Operative Diagnosis Same, stage III ulcer Procedure: Debridement of right ischial decubitus ulcer, wound VAC placement Surgeon and Inspector Outside Production: Surgeon: Jose Hamlin MD Assistants: Susy Mazariegos MD PGY-4 Indication for Procedure 62 year-old obese T12 paraplegic, who [facility] and resides at [facility], who was seen yesterday with evidence of significant necrotic soft tissue in a right ischial decubitus ulcer. She was directly admitted to the Hospitalist service from the wound clinic, and plans were made to proceed with operative debridement and wound VAC placement. Informed consent was obtained. Findings: The wound level was III, down to muscle, but there was no exposed bone. At the end of debridement, wound measurements were 13.0 x 13.5cm, with a depth of 5.0cm. Procedure Details The patient underwent awake intubation. She was then placed in the left lateral decubitus position on a beanbag, and was prepped and draped in sterile fashion. A procedural timeout was performed acccording to the SCOAP checklist, and all were found to be in agreement. Necrotic soft tissue and eschar was debrided from the wound bed using a combination of sharp dissection with a 10-blade scalpel, as well as with electrocautery. A large eschar was removed, greater than 1cm in thickness. There was some additional necrotic muscle and soft tissue under the eschar. Smaller scattered areas of necrosis were also sharply debrided. There was no pus. The base of the wound was close to the right ischial tuberosity, but there was no exposed bone. All tissue was bleeding and viable at the end of debridement. Hemostasis was achieved. The peripheral borders of the wound were not changed by debridement. Measurements of the wound at the end of debridement were 13.0 x 13.5cm, with a depth of 5.0cm. There was no tunneling or undermining. A wound VAC dressing was placed using several pieces of black foam, followed by VAC drape, and it was connected to 125mmHg suction. At the end of the case, all needle and sponge counts were correct x 2. She was awakened from anesthesia without difficulty, and taken to the recovery room in satisfactory condition, having tolerated the procedure well. Complications There were no periprocedural complications identified. Surgical Specimen Removed: No Specimen sent to Pathology: Not applicable Anesthetic Plan: GA Grafts, Implants: None Output, Estimated Blood Loss: 50 Blood Administration during brown: No Drains: Wound Vac Catheters: Pre Existing Suprapubic Jose Hamlin MD Aug 08, 2017 23:11
[2017-08-09] VITALS (9 sets, daily range): BP systolic 91–129; BP diastolic 53–73; PULSE 73–94; RESP 16–20; O2SAT 97–100
[2017-08-09] MEDS: LORazepam 0.5 mg Tablet PO PRN ×3 (01:22→22:38)
[2017-08-09] MEDS: HYDROmorphone 1 mg/mL Inj IVPUSH PRN ×4 (02:55→22:38)
[2017-08-09] MEDS: 0.9% Sodium Chloride 1,000 ML IV SCH ×4 (03:33→22:29)
--- NOTE | 2017-08-09 05:54 | NUR ---
Pt returned from PACU at 1999. 5 persons to move from bed to bed with slide board. Unable to use saji lift as wound vac in place and dressing would be disturbed. Wound vac at 125 pressure, leaking upon arrival. Reinforced dressing with more drape. Pt on 2L o2 via NC, titrated to 1L, sats 94% CPOx, Tele SR 70's. NS running. Pt A/O x3. no c/o pain on arrival. Call light in reach. Care continues
--- NOTE | 2017-08-09 07:45 | PCM.PNSURG ---
Subjective Date of Service: Aug 09, 2017 Date of Service: Aug 09, 2017 Visit Information: Reason for Visit Infected Decubitis Surgery/Surgery Date Post-Op Day # 1 Date of Admission: Aug 07, 2017 at 11:18 Hospital Day # 2 Subjective: No acute events post operatively. Wound vac holding suction well. Pt remains on clinitron bed. Afebrile, VSS overnight. Pain well controlled, denies discomfort as asensate in operative area. Continues on antibiotics. Objective Vital Sign- Last 8 Hours Date Time Temp Pulse Resp B/P Pulse Ox O2 Delivery O2 Flow Rate FiO2 08/09/17 05:12 37.2 81 16 104/61 97 Room Air 08/09/17 04:50 88 08/09/17 01:06 37.0 73 16 122/69 97 Room Air Intake and Output- Last 8 Hour 08/09/17 Cumulative From/Thru 07:00 08/07/17 10:18 - 08/09/17 06:43 Intake Total 2091 ml 9242 ml Output Total 500 ml 3135 ml Balance 1591 ml 6107 ml Intake Oral 1120 ml 2796 ml IV Total 971 ml 6446 ml Output Urine Total 450 ml 3080 ml Stool Total 0 ml Estimated Blood Loss 50 ml 55 ml # Bowel Movements 0 General: Alert, Oriented X3, Cooperative, No Acute Distress Lungs: Normal Air Movement Heart: Regular Rate/Rhythm SURGICAL WOUND : Wound Location/Description Right isciosacral decubitus ulcer. Wound General Appearence: Wound Vac Dressing & Drainage Status: Intact (serosanguinous output draining well into suction cannister, maintaining suction at 125 mmHg) Extremities: Warm Neuro: Other (paraplegic, asensate below waist.) Catheters: Suprapubic Result Diagram: 08/08/17 0534 08/08/17 0534 Lab & Micro Results: MRSA nares positive. Blood cultures NGTD. Urine pseudomonas. Unfortunately, wound culture not sent maegan operatively. Assessment & Plan Impression 62 yo F with ischiosacral decubitus ulcer not involving the bone s/p wound debridement and placement of wound vacuum therapy on 08/08. Unfortunately, we did not send wound cultures intraoperatively thus we will send wound cultures during her next wound vacuum change. Problems: Plan - Antibiotics per ID and medical team. - Obtain wound culture at wound vac change on 08/12 (Saturday) - Continue wound vac to 125mmhg continuous suction - If leakage of wound vac, poor seal, reinforce with wound vac drape material - Change positions on clinitron bed regularly - Appreciate wound care consultation and involvement for shelter wound vac changes and planning Resuscitation Status: CPR: Attempt Resuscitation Susy Mazariegos MD Aug 09, 2017 07:45
[2017-08-09] MEDS: Insulin LISPRO 300 Unit/3 mL Inj SUBQ SCH ×4 (08:00→22:00)
[2017-08-09] MEDS: buPROPion SR 150 mg ER12 Tablet PO SCH ×2 (08:21→20:13)
[2017-08-09] MEDS: Polyethylene Glycol (PEG) 17 Gm Powder PO SCH (08:23)
[2017-08-09] MEDS: DAPTOmycin Inj 750 MG in 0.9% Sodium Chloride 50 ML IV SCH (08:53)
[2017-08-09 09:14] LABS: Mean Corpuscular Hemoglobin 25.2 pg (27.0-35.0); Mean Corpuscular Volume 82.8 fL (81-100)
--- NOTE | 2017-08-09 09:35 | NUR ---
Inpatient Wound Nurse CWON RN confirmed with Dr. Mazariegos that NPWT that was applied post op 08/08 does not need to be changed until Saturday, 08/12. CWON RN anticipates NPWT change that date.
--- NOTE | 2017-08-09 10:45 | NUR ---
Inpatient Wound and Ostomy Nurse Patient was approached for ostomy system change today as agreed on yesterday. At conversation yesterday, she agreed that system would be changed today and shared her product preferences. This morning, conversation continued, plan confirmed, and TIFFANIEON gathered patient's preferred products (Coloplast light convexity wafer with hydrocolloid reinforcement strips, as well as filtered pouch. When CWON returned to patient's room about 45 minutes later, patient stated that ostomy system did not need to be changed today because it had been changed on Saturday at [facility]. When patient was reminded that this was five days ago and yesterday she confirmed that SNF follows 2x weekly system changes, she stated that this didn't matter because "I haven't even used this one yet, it's not doing anything." Patient became irritated and insisted that she did not want ostomy system changed today. Call was placed to nurse at [facility] where patient resides who confirmed 2x week ostomy changes. Nurse stated that since ostomy supplies are kept in patient's room, patient often manages ostomy independently and regularly differs from care plan with multiple issues. CWON RN will offer assistance on Saturday. If ostomy system needs changing over weekend, staff nurses may offer patient assistance and our stocked supplies. The supplies that patient requested have been left on the counter adjacent to sink in patient room. NPWT trac pad intact on R hip, no evidence of leaks, patient denied pain at surgery site. TIFFANIEON will change NWPT dressing on Saturday.
[2017-08-09] MEDS: Meropenem Inj 1,000 MG in 0.9% Sodium Chloride 100 ML IV SCH ×2 (11:00→22:30)
--- NOTE | 2017-08-09 13:29 | PCM.PNMED ---
Subjective Date of Service Aug 09, 2017 Subjective Patient is in the bed, looks comfortable. She had I&D 08/08/17. Exam Vital Signs Vital Sign - Last Date Time Temp Pulse Resp B/P Pulse Ox O2 Delivery O2 Flow Rate FiO2 08/09/17 13:19 36.8 89 18 91/53 98 Room Air 08/08/17 20:38 2.00 Intake and Output 08/08/17 08/08/17 08/09/17 Cumulative From/Thru 14:59 22:59 06:59 08/07/17 10:18 - 08/09/17 06:43 Intake Total 2424 ml 2091 ml 9242 ml Output Total 1655 ml 500 ml 3135 ml Balance 769 ml 1591 ml 6107 ml Intake Oral 0 ml 1120 ml 2796 ml IV Total 2424 ml 971 ml 6446 ml Output Urine Total 1650 ml 450 ml 3080 ml Stool Total 0 ml Estimated Blood Loss 5 ml 50 ml 55 ml # Bowel Movements 0 0 Exam GENERAL: Alert, not in distress HEAD: atraumatic, normocephalic, no bruises. EYES: EOMI, anicteric, able to fully open and close eyelids SKIN: Skin color normal, turgor normal. Patient has several chronic nonhealing pressure ulcers EAR, NOSE, MOUTH, THROAT: Lips, oral mucosa, tongue are moist, pink, no lesions. NECK: no jugulovenous distention; supple ROM normal. RESPIRATORY: Lungs clear to auscultation. Good diaphragmatic excursion. CARDIAC: normal S1 and S2; no rubs, murmurs, or gallops; regular rhythm ABDOMEN: Abdomen soft, non-tender. BS normal MUSCULOSKELETAL: ROM full, muscles are not tender EXTREMITIES: +1 pitting edema in LE, no new deformities or skin discoloration. NEURO: Alert, oriented X 3, Cranial nerves II-XII intact, lower paraplegia present PULSES: 2+ radial, 2+ carotid REVIEW OF SYSTEMS: GENERAL: no malaise, no fevers., SEE HPI HEENT: Negative for frequent or significant headaches All other reviewed and negative other than HPI. Lab and Diagnostics Result Diagram: 08/09/17 0750 08/09/17 0750 Assessment & Plan 62 y/o female patient with past medical history of T12 paraplegia for many decades, hyperthyroidism, hypertension, type II diabetes, neurogenic bladder with suprapubic catheter, s/p colostomy, and history of frequent UTIs, history of decubitus ulcer was sent from wound care clinic by Dr Hamlin for debridement. Infected decubitus ulcer with suspected osteomyelitis, s/p I&D 08/08/17 - stable - wbc 18.2,ESR 65,Hb 10.8,plt 643,Cr 1.88( baseline 1.4),procal 0.26 - Blood culture sent, patient received oral antibiotics recently. MRSA nares requested - ID consulted Plan - Wound care changed dressing today - c/w antibiotics as per ID UTI -UA with pyuria , Urine culture sent. -Continue antibiotics Acute kidney injury on CKD stage 2 - stable, not under control Plan - c/w IVF - monitor kidney function Type II diabetes - stable - ISS, HGP, Accucheck AC HS, DM diet. HTN - BP on the ower side - hold Coreg Hypothyroidism - stable - continue home dose levothyroxine Osteoporosis - stable - continue home alendronate every Saturday GERD - stable - continue home dose omeprazole Depression - stable - continue home med Bupropion T12 paraplegia with ostomy -paraplegic care with frequent turning Chronic pain - home dose Duloxetine and scheduled Oxycontine continued Chronic constipation - home dose Senna BID, MOM continued PRN - Added Lactulose 45mg BID to her regimen at request -Improved output Obesity, BMI 37.3 - With sacral ulcers and increased BMI, will require specialized bed DVT PROPHYLAXIS: Lovenox Code status: Patient would like to be full code Disposition: discharge in 2-3 days after patient improves. Plan of care discussed with treatment team; Labs, radiology tests reviewed. Plan of care, diagnostic procedures and available alternatives were discussed and reviewed with patient. All questions answered. Patient verbalized understanding, approved and agreed to plan of care. VTE Mechanical Devices: Intermittant Pneumatic CD Resuscitation Status: CPR: Attempt Resuscitation Tom Franklin MD Aug 09, 2017 13:29
--- NOTE | 2017-08-09 13:38 | NUR ---
Nausea/Pain Patient reported nausea and 6/10 back pain. 25mg Phenergan and 1mg Dilaudid given. Patient on Clinitron bed and repositioned as requested by patient. Call light and tray table within reach. Will continue to monitor patient hourly.
[2017-08-09] MEDS: Lactulose 20 Gm/30 mL 30 mL Syrup PO PRN (14:42)
[2017-08-09] MEDS: DULoxetine 30 mg DR Capsule PO SCH (20:13)
[2017-08-10] VITALS (8 sets, daily range): BP systolic 129–147; BP diastolic 70–83; PULSE 79–103; RESP 16–20; O2SAT 94–99
[2017-08-10] MEDS: Lactulose 20 Gm/30 mL 30 mL Syrup PO PRN ×2 (05:51→12:30)
[2017-08-10 06:34] LABS: Mean Corpuscular Hemoglobin 25.5 pg (27.0-35.0); Mean Corpuscular Volume 83.4 fL (81-100)
[2017-08-10] MEDS: Insulin LISPRO 300 Unit/3 mL Inj SUBQ SCH ×4 (07:56→21:14)
[2017-08-10] MEDS: buPROPion SR 150 mg ER12 Tablet PO SCH ×2 (07:57→20:09)
[2017-08-10] MEDS: Polyethylene Glycol (PEG) 17 Gm Powder PO SCH (07:58)
[2017-08-10] MEDS: 0.9% Sodium Chloride 1,000 ML IV SCH ×2 (08:48→19:18)
[2017-08-10] MEDS: HYDROmorphone 1 mg/mL Inj IVPUSH PRN ×3 (08:49→23:10)
[2017-08-10] MEDS: DAPTOmycin Inj 750 MG in 0.9% Sodium Chloride 50 ML IV SCH (08:55)
--- NOTE | 2017-08-10 09:00 | PCM.PNSURG ---
Subjective Date of Service: Aug 10, 2017 Date of Service: Aug 10, 2017 Visit Information: Reason for Visit Infected Decubitis Surgery/Surgery Date Post-Op Day # 2 Date of Admission: Aug 07, 2017 at 11:18 Hospital Day # 4 Subjective: Feeling irritated this morning, wants to move up in bed and feels very uncomfortable, had constipation overnight and finally had ostomy output this morning and wants to change bag. Denies pain or discomfort. No issues with wound vac seal. Remains afebrile and vital signs stable. Objective Vital Sign- Last 8 Hours Date Time Temp Pulse Resp B/P Pulse Ox O2 Delivery O2 Flow Rate FiO2 08/10/17 08:30 103 08/10/17 06:20 93 08/10/17 05:40 37.0 93 20 129/77 99 Room Air Intake and Output- Last 8 Hour 08/10/17 Cumulative From/Thru 06:58 08/07/17 10:18 - 08/10/17 06:14 Intake Total 2170 ml 67844 ml Output Total 1600 ml 5085 ml Balance 570 ml 7847 ml Intake Oral 913 ml 4079 ml IV Total 1257 ml 8853 ml Output Urine Total 1600 ml 5030 ml Stool Total 0 ml 0 ml Estimated Blood Loss 55 ml # Bowel Movements 0 General: Oriented X3, Cooperative, No Acute Distress Abdomen: Other (Ostomy with formed brown stool. Abdomen moderately distended. Wound vac holding seal at 125mmHg with serosanguinous output in cannister.) Result Diagram: 08/10/17 0615 08/10/17 0615 Assessment & Plan Impression 62 yo F with ischiosacral decubitus ulcer not involving the bone s/p wound debridement and placement of wound vacuum therapy on 08/08. Unfortunately, we did not send wound cultures intraoperatively thus we will send wound cultures during her next wound vacuum change. Problems: Plan - Antibiotics per ID and medical team. - Obtain wound culture at wound vac change on 08/12 (Saturday) - Continue wound vac to 125mmhg continuous suction - If leakage of wound vac, poor seal, reinforce with wound vac drape material - Change positions on clinitron bed regularly - Appreciate wound care consultation and involvement for terminologist wound vac changes and planning Resuscitation Status: CPR: Attempt Resuscitation Susy Mazariegos MD Aug 10, 2017 09:00
[2017-08-10] MEDS: Meropenem Inj 1,000 MG in 0.9% Sodium Chloride 100 ML IV SCH ×2 (10:05→20:08)
--- NOTE | 2017-08-10 11:02 | PCM.PNMED ---
Subjective Date of Service Aug 10, 2017 Subjective Patient is in the bed, feeling the same. Exam Vital Signs Vital Sign - Last Date Time Temp Pulse Resp B/P Pulse Ox O2 Delivery O2 Flow Rate FiO2 08/10/17 09:02 36.8 97 20 131/70 97 Room Air 08/09/17 20:45 1.00 Intake and Output 08/09/17 08/09/17 08/10/17 Cumulative From/Thru 15:00 23:00 07:00 08/07/17 10:18 - 08/10/17 06:14 Intake Total 1520 ml 2170 ml 78576 ml Output Total 350 ml 1600 ml 5085 ml Balance 1170 ml 570 ml 7847 ml Intake Oral 370 ml 913 ml 4079 ml IV Total 1150 ml 1257 ml 8853 ml Output Urine Total 350 ml 1600 ml 5030 ml Stool Total 0 ml 0 ml Estimated Blood Loss 55 ml # Bowel Movements 0 Exam GENERAL: Alert, not in distress, in bed HEAD: atraumatic, normocephalic, no bruises. EYES: EOMI, anicteric SKIN: Skin color normal, turgor normal. Patient has several chronic non- healing pressure ulcers EAR, NOSE, MOUTH, THROAT: Lips, oral mucosa, tongue are moist, pink, no lesions. NECK: no jugulovenous distention; supple ROM normal. RESPIRATORY: Lungs clear to auscultation. CARDIAC: normal S1 and S2; no rubs, murmurs, or gallops; regular rhythm ABDOMEN: Abdomen soft, non-tender. BS normal MUSCULOSKELETAL: ROM full, muscles are not tender EXTREMITIES: +1 pitting edema in LE, no new deformities or skin discoloration. NEURO: Alert, oriented X 3, Cranial nerves II-XII intact, lower paraplegia present PULSES: 2+ radial, 2+ carotid REVIEW OF SYSTEMS: GENERAL: +malaise, no fevers., SEE HPI HEENT: Negative for frequent or significant headaches All other reviewed and negative other than HPI. IVs and Medications Medications Reviewed: Medications were reviewed in detail Lab and Diagnostics Result Diagram: 08/10/1761408/10/17614 Assessment & Plan 62 y/o female patient with past medical history of T12 paraplegia for many decades, hyperthyroidism, hypertension, type II diabetes, neurogenic bladder with suprapubic catheter, s/p colostomy, and history of frequent UTIs, history of decubitus ulcer was sent from wound care clinic by Dr Hamlin for debridement. Infected decubitus ulcer with suspected osteomyelitis, s/p I&D 08/08/17 with wound vac placement. - stable, improving - wbc 18.2,ESR 65,Hb 10.8,plt 643,Cr 1.88( baseline 1.4),procal 0.26 - Blood culture sent, patient received oral antibiotics recently. MRSA nares requested - ID consulted - surgery following, advised Obtain wound culture at wound vac change on 08/12 ( Saturday), - Continue wound vac to 125mmhg continuous suction , If leakage of wound vac, poor seal, reinforce with wound vac drape material, Change positions on clinitron bed regularly Plan - c/w Wound care , wound vac - c/w antibiotics UTI -UA with pyuria , Urine culture - pansensitive PSEUDOMONAS AERUGINOSA - start Cipro PO Acute kidney injury on CKD stage 2 - stable, not under control Plan - c/w IVF - monitor kidney function Type II diabetes - stable - ISS, HGP, Accucheck AC HS, DM diet. HTN - BP stable, - hold Coreg for now Hypothyroidism - stable - continue home dose levothyroxine Osteoporosis - stable - continue home alendronate every Saturday GERD - stable - continue home dose omeprazole Depression - stable - continue home med Bupropion T12 paraplegia with ostomy -paraplegic care with frequent turning Chronic pain - home dose Duloxetine and scheduled Oxycontine continued Chronic constipation - home dose Senna BID, MOM continued PRN - Added Lactulose 45mg BID to her regimen at request -Improved output Obesity, BMI 37.3 - With sacral ulcers and increased BMI, will require specialized bed DVT PROPHYLAXIS: Lovenox Code status: Patient would like to be full code Disposition: discharge in 2-3 days after patient improves. Plan of care discussed with treatment team; Labs, radiology tests reviewed. Plan of care, diagnostic procedures and available alternatives were discussed and reviewed with patient. All questions answered. Patient verbalized understanding, approved and agreed to plan of care. VTE Mechanical Devices: Intermittant Pneumatic CD Resuscitation Status: CPR: Attempt Resuscitation Tom Franklin MD Aug 10, 2017 11:02
[2017-08-10] MEDS ORDERED: Vancomycin Serum Trough XX ONE (12:00)
[2017-08-10] MEDS: DULoxetine 30 mg DR Capsule PO SCH (20:09)
[2017-08-10] MEDS: LORazepam 0.5 mg Tablet PO PRN (23:13)
[2017-08-11 01:15] VITALS: BP 141/79; PULSE 80; RESP 18; O2SAT 95
[2017-08-11] MEDS: Hydrocortisone 2.5% 28 Gm Cream TOPICAL PRN (01:54)
--- NOTE | 2017-08-11 02:12 | NUR ---
PSYCH/INTEG/PAIN; "i cant sleep". pt stated. Requested another ativan. C/o itching arms, no rash noted,- hydrocortisone cream applied which helped. Phenergan was given for c/o queasy stomach, no further c/o stomach ache. Dilaudid given for c/o back soreness with relief. Repositioned as needed. Wound vac/colost. bag/ urine catheter intact.
[2017-08-11] MEDS: LORazepam 0.5 mg Tablet PO PRN ×2 (03:11→23:42)
[2017-08-11] MEDS: HYDROmorphone 1 mg/mL Inj IVPUSH PRN ×5 (03:16→23:50)
[2017-08-11] MEDS: 0.9% Sodium Chloride 1,000 ML IV SCH ×2 (05:30→08:35)
[2017-08-11 06:16] VITALS: BP 148/78; PULSE 84; RESP 16; O2SAT 96
[2017-08-11] MEDS: Insulin LISPRO 300 Unit/3 mL Inj SUBQ SCH ×4 (07:56→21:07)
[2017-08-11] MEDS: buPROPion SR 150 mg ER12 Tablet PO SCH ×2 (08:24→19:46)
[2017-08-11] MEDS: Meropenem Inj 1,000 MG in 0.9% Sodium Chloride 100 ML IV SCH ×2 (08:25→20:41)
[2017-08-11] MEDS: Polyethylene Glycol (PEG) 17 Gm Powder PO SCH (08:25)
[2017-08-11 08:53] VITALS: BP 170/87; PULSE 97; RESP 18; O2SAT 99
--- NOTE | 2017-08-11 10:21 | PCM.PNSURG ---
Subjective Date of Service: Aug 11, 2017 Date of Service: Aug 11, 2017 Visit Information: Reason for Visit Infected Decubitis Date of Admission: Aug 07, 2017 at 11:18 Subjective: Feels tired this morning, doesn't want to talk. No complaints about wound vac, understands it will be changed tomorrow. Better ostomy output overnight and abdominal discomfort resolved. Objective Vital Sign- Last 8 Hours Date Time Temp Pulse Resp B/P Pulse Ox O2 Delivery O2 Flow Rate FiO2 08/11/17 08:53 36.4 97 18 170/87 99 Room Air 08/11/17 06:16 36.9 84 16 148/78 96 Room Air Intake and Output- Last 8 Hour 08/11/17 Cumulative From/Thru 06:58 08/07/17 10:18 - 08/11/17 06:16 Intake Total 1477 ml 14413 ml Output Total 2100 ml 9435 ml Balance -623 ml 7363 ml Intake Oral 930 ml 6209 ml IV Total 547 ml 33374 ml Output Urine Total 1550 ml 7880 ml Stool Total 550 ml 1500 ml Estimated Blood Loss 55 ml # Bowel Movements 0 General: No Acute Distress Lungs: Other (Breathing comfortably on room air.) Abdomen: Soft, Non-tender, Other (Stoma healthy with green formed stool.) SURGICAL WOUND : Wound General Appearence: Wound Vac (holding suction well at 125mmHg and serosanguinous output.) Extremities: Warm Result Diagram: 08/10/17 0615 08/10/17 0615 Assessment & Plan Impression 62 yo F with ischiosacral decubitus ulcer not involving the bone s/p wound debridement and placement of wound vacuum therapy on 08/08. Unfortunately, we did not send wound cultures intraoperatively thus we will send wound cultures during her next wound vacuum change. Problems: Plan - Antibiotics per ID and medical team. - Obtain wound culture at wound vac change on 08/12 (Saturday) - Continue wound vac to 125mmhg continuous suction - If leakage of wound vac, poor seal, reinforce with wound vac drape material - Change positions on clinitron bed regularly - Appreciate wound care consultation and involvement for admission nurse wound vac changes and planning Resuscitation Status: CPR: Attempt Resuscitation Susy Mazariegos MD Aug 11, 2017 10:21
[2017-08-11] MEDS: DAPTOmycin Inj 750 MG in 0.9% Sodium Chloride 50 ML IV SCH (10:24)
--- NOTE | 2017-08-11 13:56 | PCM.PNMED ---
Subjective Date of Service Aug 11, 2017 Subjective Patient is back, is feeling the same as yesterday Exam Vital Signs Vital Sign - Last Date Time Temp Pulse Resp B/P Pulse Ox O2 Delivery O2 Flow Rate FiO2 08/11/17 12:35 Supplement Oxygen 08/11/17 08:53 36.4 97 18 170/87 99 08/09/17 20:45 1.00 Intake and Output 08/10/17 08/10/17 08/11/17 Cumulative From/Thru 15:00 23:00 07:00 08/07/17 10:18 - 08/11/17 06:16 Intake Total 2389 ml 1477 ml 64431 ml Output Total 2250 ml 2100 ml 9435 ml Balance 139 ml -623 ml 7363 ml Intake Oral 1200 ml 930 ml 6209 ml IV Total 1189 ml 547 ml 52534 ml Output Urine Total 1300 ml 1550 ml 7880 ml Stool Total 950 ml 550 ml 1500 ml Estimated Blood Loss 55 ml # Bowel Movements 0 Exam GENERAL: Alert, not in distress, in bed HEAD: atraumatic, normocephalic EYES: EOMI, anicteric SKIN: Skin color normal, turgor normal. Patient has several chronic non- healing pressure ulcers; wound VAC in place EAR, NOSE, MOUTH, THROAT: Lips, oral mucosa, tongue are moist, pink, no lesions. NECK: no jugulovenous distention; supple ROM normal. RESPIRATORY: Lungs clear to auscultation. CARDIAC: normal S1 and S2; no rubs, or gallops; regular rhythm ABDOMEN: Abdomen soft, non-tender. BS normal MUSCULOSKELETAL: ROM full, muscles are not tender EXTREMITIES: +1 pitting edema in LE NEURO: Alert, oriented X 3, Cranial nerves II-XII intact, lower paraplegia present PULSES: 2+ radial, 2+ carotid REVIEW OF SYSTEMS: GENERAL: +malaise, no fevers., SEE HPI HEENT: Negative for frequent or significant headaches All other reviewed and negative other than HPI. IVs and Medications Medications Reviewed: Medications were reviewed in detail Lab and Diagnostics Result Diagram: 08/10/1761408/10/17614 Assessment & Plan 62 y/o female patient with past medical history of T12 paraplegia for many decades, hyperthyroidism, hypertension, type II diabetes, neurogenic bladder with suprapubic catheter, s/p colostomy, and history of frequent UTIs, history of decubitus ulcer was sent from wound care clinic by Dr Hamlin for debridement. Infected decubitus ulcer with suspected osteomyelitis, s/p I&D 08/08/17 with wound vac placement. - stable, improving - wbc 18.2,ESR 65,Hb 10.8,plt 643,Cr 1.88( baseline 1.4),procal 0.26 - Blood culture sent, patient received oral antibiotics recently. MRSA nares requested - ID consulted - surgery following, advised Obtain wound culture at wound vac change on 08/12 ( Saturday), - Continue wound vac to 125mmhg continuous suction , If leakage of wound vac, poor seal, reinforce with wound vac drape material, Change positions on clinitron bed regularly Plan - c/w Wound care , wound vac - c/w antibiotics UTI - Stable -UA with pyuria , Urine culture - pansensitive PSEUDOMONAS AERUGINOSA - Continue with meropenem Acute kidney injury on CKD stage 2 - stable, not under control Plan - c/w IVF - monitor kidney function Type II diabetes - stable - ISS, HGP, Accucheck AC HS, DM diet. HTN - BP stable, - hold Coreg for now Hypothyroidism - stable - continue home dose levothyroxine Osteoporosis - stable - continue home alendronate every Saturday GERD - stable - continue home dose omeprazole Depression - stable - continue home med Bupropion T12 paraplegia with ostomy -paraplegic care with frequent turning Chronic pain - home dose Duloxetine and scheduled Oxycontine continued Chronic constipation - stable Obesity, BMI 37.3 - With sacral ulcers and increased BMI, will require specialized bed DVT PROPHYLAXIS: Lovenox Code status: Patient would like to be full code Disposition: discharge in 2-3 days after patient improves. Plan of care discussed with treatment team; Labs, radiology tests reviewed. Plan of care, diagnostic procedures and available alternatives were discussed and reviewed with patient. All questions answered. Patient verbalized understanding, approved and agreed to plan of care. VTE Mechanical Devices: Intermittant Pneumatic CD Resuscitation Status: CPR: Attempt Resuscitation Tom Franklin MD Aug 11, 2017 13:56
[2017-08-11 14:14] VITALS: BP 146/80; PULSE 94; RESP 18; O2SAT 99
[2017-08-11 14:47] LABS: Mean Corpuscular Hemoglobin 25.3 pg (27.0-35.0); Mean Corpuscular Volume 84.3 fL (81-100)
[2017-08-11] MEDS: diphenhydrAMINE 25 mg Capsule PO PRN ×2 (17:25→23:42)
[2017-08-11] MEDS: DULoxetine 30 mg DR Capsule PO SCH (19:46)
[2017-08-11 20:02] VITALS: BP 137/73; PULSE 90; RESP 20; O2SAT 98
[2017-08-12] MEDS: 0.9% Sodium Chloride 1,000 ML IV SCH ×3 (01:37→23:09)
[2017-08-12] MEDS: HYDROmorphone 1 mg/mL Inj IVPUSH PRN ×5 (04:06→21:13)
[2017-08-12 04:20] VITALS: BP 136/70; PULSE 91; RESP 18; O2SAT 95
--- NOTE | 2017-08-12 04:34 | NUR ---
[facility] Call Received call from [facility] wanting update on patient. Spoke with Dayan who stated they would not be able to provide clinatron bed for patient but would be able to provide bariatric or low air loss bed but would need ~24hrs to have one available for the patient. Will pass on to day shift RN.
--- NOTE | 2017-08-12 04:37 | NUR ---
Shift note: Patient reports trouble sleeping, PO medications given, IV medications given for pain. Patient in room, eyes closed, chest rising and falling. Per day shift report suprapubic catheter is leaking, MD is aware. Minimal leaking observed this shift, patent draining pale yellow urine. Wound vac draining sero-sanguineous fluid. Patient assists with repositioning using trapeze. A&Ox3, pleasant and appropriate. Continuous pulse ox on at 95% RA. Tele SR 90's. Will continue to monitor.
[2017-08-12] MEDS: Hydrocortisone 2.5% 28 Gm Cream TOPICAL PRN (05:16)
[2017-08-12] MEDS: diphenhydrAMINE 25 mg Capsule PO PRN ×2 (05:29→22:48)
[2017-08-12] MEDS: Insulin LISPRO 300 Unit/3 mL Inj SUBQ SCH ×4 (08:00→22:00)
[2017-08-12] MEDS: buPROPion SR 150 mg ER12 Tablet PO SCH ×2 (08:00→22:49)
[2017-08-12] MEDS: Polyethylene Glycol (PEG) 17 Gm Powder PO SCH (08:01)
[2017-08-12 08:02] LABS: Mean Corpuscular Hemoglobin 25.1 pg (27.0-35.0); Mean Corpuscular Volume 83.3 fL (81-100)
[2017-08-12 09:11] VITALS: BP 136/79; PULSE 78; RESP 18; O2SAT 100
[2017-08-12] MEDS: DAPTOmycin Inj 750 MG in 0.9% Sodium Chloride 50 ML IV SCH (09:32)
--- NOTE | 2017-08-12 10:30 | NUR ---
Inpatient Wound and Ostomy Nurse Patient approached for wound care, specifically change of NPWT system. 300 ml of thin sanguinous fluid noted in canister. Patient was positioned onto deep L side-lying position and Clinitron bed was deflated. Entire drape was inaccessible without also moving patient onto R side-lying position. Patient is unable to lie prone, her paralysis and body habitus make correct positioning impossible. Staff report increased leaking around SPC that has flowed under drape. Entire base of vac drape noted to be reinforced with multiple layers of drape, many without Layer 2 backing removed. Fluid is noted under drape and once removed, periwound skin is noted macerated. Despite this, periwound skin is improved. It had formally been highly erythemic and chapped due to tape allergy and has responded well to drape material despite maceration. Wound margins are white and ruffled. Black foam removed only after saturation with 20 ml of NS. Call was placed to Dr. Mazariegos explaining challenge reapplying NPWT system. OR staff instructed this CWON RN that patient would return to OR for NPWT application today. At this point, wound was packed with NS soaked Kerlix and covered with ABD and chucks. Patient has again declined care with ostomy, stated that it does not need to be changed today. When reminded that current system has been in place for 8 days she stated that "it doesn't matter, I haven't been using it." Small amount of applesauce consistency light brown stool noted in pouch up around wafer and liquid noted in distal spout of pouch. Per WOCN guidelines, wafer should be changed 2 x weekly for peristomal skin health. Patient made aware of recommendations and declined assistance with ostomy today.
[2017-08-12] MEDS: Meropenem Inj 1,000 MG in 0.9% Sodium Chloride 100 ML IV SCH ×2 (10:48→22:41)
[2017-08-12] MEDS: LORazepam 0.5 mg Tablet PO PRN (12:04)
--- NOTE | 2017-08-12 13:27 | PCM.PNMED ---
Subjective Date of Service Aug 12, 2017 Exam Vital Signs Vital Sign - Last Date Time Temp Pulse Resp B/P Pulse Ox O2 Delivery O2 Flow Rate FiO2 08/12/17 09:11 36.8 78 18 136/79 100 Room Air 08/09/17 20:45 1.00 Intake and Output 08/11/17 08/11/17 08/12/17 Cumulative From/Thru 15:00 23:00 07:00 08/07/17 10:18 - 08/12/17 05:19 Intake Total 54 ml 1345 ml 883 ml 36734 ml Output Total 2151 ml 2100 ml 73133 ml Balance 54 ml -806 ml -1217 ml 5394 ml Intake Oral 556 ml 418 ml 7183 ml IV Total 54 ml 789 ml 465 ml 21303 ml Output Urine Total 2150 ml 2100 ml 88189 ml Stool Total 1 ml 1501 ml Estimated Blood Loss 55 ml # Bowel Movements 0 Exam GENERAL: Alert, not in distress, in bed HEAD: atraumatic, normocephalic EYES: EOMI, anicteric SKIN: Skin color normal, turgor normal. Patient has several chronic non- healing pressure ulcers; wound VAC in place EAR, NOSE, MOUTH, THROAT: Lips, oral mucosa, tongue are moist, pink, no lesions. NECK: no jugulovenous distention; supple ROM normal. RESPIRATORY: Lungs clear to auscultation. CARDIAC: normal S1 and S2; no rubs, or gallops; regular rhythm ABDOMEN: Abdomen soft, non-tender. BS normal MUSCULOSKELETAL: ROM full, muscles are not tender EXTREMITIES: +1 pitting edema in LE NEURO: Alert, oriented X 3, Cranial nerves II-XII intact, lower paraplegia present PULSES: 2+ radial, 2+ carotid REVIEW OF SYSTEMS: GENERAL: +malaise, no fevers., SEE HPI HEENT: Negative for frequent or significant headaches All other reviewed and negative other than HPI. Lab and Diagnostics Result Diagram: 08/12/17 0750 08/12/17 0750 Assessment & Plan 62 y/o female patient with past medical history of T12 paraplegia for many decades, hyperthyroidism, hypertension, type II diabetes, neurogenic bladder with suprapubic catheter, s/p colostomy, and history of frequent UTIs, history of decubitus ulcer was sent from wound care clinic by Dr Hamlin for debridement. Infected decubitus ulcer with suspected osteomyelitis, s/p I&D 08/08/17 with wound vac placement. - stable, improving - wbc 18.2,ESR 65,Hb 10.8,plt 643,Cr 1.88( baseline 1.4),procal 0.26 - Blood culture sent, patient received oral antibiotics recently. MRSA nares requested - ID consulted - surgery following, advised Obtain wound culture at wound vac change on 08/12 ( Saturday), - Continue wound vac to 125mmhg continuous suction , If leakage of wound vac, poor seal, reinforce with wound vac drape material, Change positions on clinitron bed regularly Plan - c/w Wound care , wound vac - c/w antibiotics UTI - Stable -UA with pyuria , Urine culture - pansensitive PSEUDOMONAS AERUGINOSA - Continue with meropenem Acute kidney injury on CKD stage 2 - stable, not under control Plan - c/w IVF - monitor kidney function Type II diabetes - stable - ISS, HGP, Accucheck AC HS, DM diet. HTN - BP stable, - hold Coreg for now Hypothyroidism - stable - continue home dose levothyroxine Osteoporosis - stable - continue home alendronate every Saturday GERD - stable - continue home dose omeprazole Depression - stable - continue home med Bupropion T12 paraplegia with ostomy -paraplegic care with frequent turning Chronic pain - home dose Duloxetine and scheduled Oxycontine continued Chronic constipation - stable Obesity, BMI 37.3 - With sacral ulcers and increased BMI, will require specialized bed DVT PROPHYLAXIS: Lovenox Code status: Patient would like to be full code Disposition: discharge in 2-3 days after patient improves. Plan of care discussed with treatment team; Labs, radiology tests reviewed. Plan of care, diagnostic procedures and available alternatives were discussed and reviewed with patient. All questions answered. Patient verbalized understanding, approved and agreed to plan of care. VTE Mechanical Devices: Intermittant Pneumatic CD Resuscitation Status: CPR: Attempt Resuscitation Tom Franklin MD Aug 12, 2017 13:27
[2017-08-12] MEDS: Ondansetron 2 mg/mL 2 mL Inj IVPUSH PRN (15:14)
--- NOTE | 2017-08-12 15:26 | PCM.PNSURG ---
Subjective Date of Service: Aug 12, 2017 Date of Service: Aug 12, 2017 Visit Information: Reason for Visit Infected Decubitis Surgery/Surgery Date Post-Op Day # 5 Date of Admission: Aug 07, 2017 at 11:18 Hospital Day # 5 Subjective: Attempted wound vac change this morning with wound therapist, difficult to position and very uncomfortable. Stopped attempt. No acute events overnight. Objective Vital Sign- Last 8 Hours Date Time Temp Pulse Resp B/P Pulse Ox O2 Delivery O2 Flow Rate FiO2 08/12/17 09:11 36.8 78 18 136/79 100 Room Air Intake and Output- Last 8 Hour 08/12/17 Cumulative From/Thru 07:00 08/07/17 10:18 - 08/12/17 05:19 Intake Total 883 ml 60057 ml Output Total 2100 ml 86597 ml Balance -1217 ml 5394 ml Intake Oral 418 ml 7183 ml IV Total 465 ml 94947 ml Output Urine Total 2100 ml 76920 ml Stool Total 1501 ml Estimated Blood Loss 55 ml # Bowel Movements 0 General: Alert, Oriented X3, Cooperative, No Acute Distress Lungs: Other (Breathing comfortably on room air) Heart: Regular Rate/Rhythm SURGICAL WOUND : Wound General Appearence: Wound Vac (right ischiorectal wound with suction at 125mmhg draining serosanguinous fluid) Neuro: Other (Paraplegic) Catheters: Suprapubic Result Diagram: 08/12/17 0750 08/12/17 0750 Assessment & Plan Impression 62 yo F with ischiosacral decubitus ulcer not involving the bone s/p wound debridement and placement of wound vacuum therapy on 08/08. Wound vac change today at bedside if able with additional personnel, if unable will change in OR. Problems: Plan - Antibiotics per ID and medical team. - Obtain wound culture at wound vac change today - Continue wound vac to 125mmhg continuous suction - If leakage of wound vac, poor seal, reinforce with wound vac drape material - Change positions on clinitron bed regularly - Appreciate wound care consultation and involvement for residential wound vac changes and planning Resuscitation Status: CPR: Attempt Resuscitation Susy Mazariegos MD Aug 12, 2017 15:26 Susy Mazariegos MD Aug 12, 2017 15:26
--- NOTE | 2017-08-12 16:04 | NUR ---
Inpatient Wound Nurse Patient's NPWT reapplied by Dr. Mazariegos and PIERRE Mckeon at bedside; no OR required. Dr. Morales obtained specimen for culture. Wound bed is beefy red and granulating, constant bleed without coagulation. Two necrotic areas noted, each about 0.5 cm L x 0.5 cm W. CWON RN noted 400 ml of sanguinous fluid in removed canister that was changed. Using mastisol, seal was obtained after reinforcement. Anticipate next change for , 08/15/17. Patient shared with CWON RN that SNF phoned her today and asked her to sign a form agreeing that her care needs exceed facility's abilities. Patient stated that she is concerned that if she signs this, she will not be able to find another place to live. MEDICAL CENTER REPRESENTATIVE aware of situation and will meet with patient.
--- NOTE | 2017-08-12 16:34 | PROG NOTE ---
[address] [address] PROGRESS NOTE PATIENT: LION VERA : 1955 MR#: [id number] ADMIT: 08/07/2017 JOB ID: [id number] DATE: 08/12/2017 REASON FOR FOLLOWUP: Massive right buttock decubitus ulcer with extension nearly to bone. INTERVAL HISTORY: The patient was taken to the operating room by Dr. Hamlin, who performed a debridement on August 08. At that time, he felt that there was some necrotic muscle and soft tissue which was removed and some areas of necrosis but no significant pus. The base of the wound was closed to the right ischial tuberosity but there was no exposed bone. Subsequent to that time, the plan has been to try and place a wound VAC on this massive wound and then to [facility] the [facility] with some sort of a low-impact bed to allow prolonged healing. The patient has been essentially afebrile without fevers or chills over the weekend. She always has some baseline respiratory distress, but it is not worse than normal. Pain has been surprisingly well controlled considering the massive nature of this wound. PHYSICAL EXAMINATION: Reveals an obese woman lying supine in her Clinitron bed. Temp 36.8, pulse 78, respiratory rate 18, blood pressure 136/79. She is saturating 100% on room air and is in no acute distress. Her lungs are relatively clear but distant. Abdomen benign. We assisted the surgical team as well as the wound campaign management specialist in repositioning the patient, so that her dressings could be removed. We carefully inspected and probed the massive right buttock decubitus ulcer which extends almost but not quite to bone as was mentioned om the surgical notes. Using a probe, we were able to establish that there is still a bit of overlying tissue over the ischial tuberosity but not much. The enormous area of this wound is freely bleeding without pus or odor. LABORATORIES: Include a white count today 12,800. Creatinine 1.37, which is slowly improving. Urinalysis packed with white cells. Urine culture grew Pseudomonas which was sensitive to all standard agents. A MRSA screen of the nares was positive. No additional imaging is available. IMPRESSION: This is an unfortunate patient with an extremely large decubitus ulcer which is a consequence of sitting in a wheelchair for many hours due to her underlying paraplegia. There is not quite evidence of exposed bone but certainly close. The wound extends close to the bone. The patient has an indwelling Barclay, at least at times, and it is hard to know what to make of her pyuria and positive urine culture, which is now growing Pseudomonas. RECOMMENDATIONS: 1. Will continue patient on current daptomycin and meropenem regimen while we await additional cultures. 2. Deep cultures were taken today and I have sent those personally to the lab. 3. Will continue to closely observe this patient with you and eventually come up with a definitive plan for duration and type of antibiotics.
[2017-08-12 16:52] VITALS: BP 138/82; PULSE 89; RESP 18; O2SAT 99
--- NOTE | 2017-08-12 17:05 | NUR ---
Skin Suprapubic catheter continues to leak, shown at bedside; plan to consider medications for bladder spasms or consult with urology. Skin in surrounding area is intact. Abdominal skin folds with mild redness, Nystatin cream applied. Wound vac changed at bedside by WC and surgical team; pt tolerated well. Clinitron bed in use. Mepilex on R foot. Bruise on R welch is improved from Saturday. Patient reports decrease in generalized itching she was experiencing yesterday. Her eyelids are reddened from itching, MD is considering different eye drop options. Skin care monitoring continues hourly.
--- NOTE | 2017-08-12 17:52 | NUR ---
Social Work: Continued Discharge Planning/Multidisciplinary Rounds D: EMR reviewed. Pt is on day 5 of hospitalization. Pt discussed in multidisciplinary rounds and is not medically stable for discharge today, anticipate 2-3 more days pending cultures. SW received updated from RN regarding T/C from Dayan at [facility] who stated they would not be able to provide Clinitron bed for patient but would be able to provide bariatric or low air loss bed but would need 24hrs notice to have one available for the patient. Pt accepted to return to [facility] with Dr. Nieto to follow. SW to contact [facility] regarding bed. A: Pt who resides at [facility] P: SW to follow-up with [facility] regarding pt's needs at discharge in regard to bed. SW will continue to follow. JUNITO Montoya
[2017-08-12 21:39] VITALS: BP 111/76; PULSE 92; RESP 16; O2SAT 93
[2017-08-12] MEDS: DULoxetine 30 mg DR Capsule PO SCH (22:47)
[2017-08-13] MEDS: LORazepam 0.5 mg Tablet PO PRN ×2 (00:52→23:09)
[2017-08-13] MEDS: HYDROmorphone 1 mg/mL Inj IVPUSH PRN ×4 (01:02→20:05)
[2017-08-13] MEDS: diphenhydrAMINE 25 mg Capsule PO PRN ×2 (06:06→11:47)
[2017-08-13 06:16] LABS: Mean Corpuscular Hemoglobin 25.4 pg (27.0-35.0); Mean Corpuscular Volume 84.3 fL (81-100)
--- NOTE | 2017-08-13 06:33 | NUR ---
Skin/Wound Vac/Pain On initial assessment, patient has a significant small area on gluteal cleft that is open and slightly draining. Wound Vac on buttocks is leaking around edges. Patients gown was found damp and bedding was found to have serous-sanguineous drainage. Patient bedding changed and dressing pressed down as to adhere to skin. Patient complained of pain throughout shift 6/10-7/10 on pain scale. Pain medication administered along with Benadryl for itching . IV was difficult to keep flowing at a regular flow as it would distal occlude intermittently. Patients IV adjusted to help flow. VSS. Call light is within reach. Hourly rounding continues
--- NOTE | 2017-08-13 07:28 | NUR ---
IV Right Arm During reassessment this am, patients new IV in the right arm appears red. IV constantly is beeping with distal occlusions. Patients arm has been moved, realigned. Problem reported to AM RN.
[2017-08-13] MEDS: 0.9% Sodium Chloride 1,000 ML IV SCH ×2 (07:30→17:30)
[2017-08-13] MEDS: Insulin LISPRO 300 Unit/3 mL Inj SUBQ SCH ×4 (08:00→22:00)
[2017-08-13 08:22] VITALS: BP 127/76; PULSE 93; RESP 16; O2SAT 93
[2017-08-13] MEDS: Polyethylene Glycol (PEG) 17 Gm Powder PO SCH (09:15)
--- NOTE | 2017-08-13 09:22 | PCM.PNSURG ---
Subjective Date of Service: Aug 13, 2017 Date of Service: Aug 13, 2017 Visit Information: Reason for Visit Infected Decubitis Right Ischiosacral Ulcer Subjective: No complaints this morning. Tolerated wound vac replacement at bedside yesterday without much discomfort. Objective Vital Sign- Last 8 Hours Date Time Temp Pulse Resp B/P Pulse Ox O2 Delivery O2 Flow Rate FiO2 08/13/17 08:22 36.9 93 16 127/76 93 Room Air Intake and Output- Last 8 Hour 08/13/17 Cumulative From/Thru 07:00 08/07/17 10:18 - 08/13/17 06:07 Intake Total 998 ml 46159 ml Output Total 1150 ml 28648 ml Balance -152 ml 5402 ml Intake Oral 800 ml 8583 ml IV Total 198 ml 96662 ml Output Urine Total 1150 ml 63121 ml Stool Total 1501 ml Estimated Blood Loss 55 ml # Bowel Movements 0 General: Alert, Oriented X3, Cooperative SURGICAL WOUND : Wound General Appearence: Wound Vac (holding suction well at 125mmHg with minimal serosanguinous output) Extremities: Warm Result Diagram: 08/13/17 0555 08/13/17 0555 Assessment & Plan Impression 62 yo F with ischiosacral decubitus ulcer not involving the bone s/p wound debridement and placement of wound vacuum therapy on 08/08, changed on 08/12 with excellent wound progress, granulation tissue coming in, no remaining necrotic tissue or concern for wound infection. Problems: Plan - Antibiotics per ID and medical team, appreciate recs and management - Continue wound vac to 125mmhg continuous suction, next change on with wound care team. - If leakage of wound vac, poor seal, reinforce with wound vac drape material - Change positions on clinitron bed regularly - Appreciate wound care consultation and involvement for prison wound vac changes and planning Resuscitation Status: CPR: Attempt Resuscitation Susy Mazariegos MD Aug 13, 2017 09:22
[2017-08-13 10:28] LABS: BASOPHILS % (AUTO) 1.3 % (0-3); EOSINOPHILS % (AUTO) 9.4 % (0-5); MONOCYTES % (AUTO) 9.4 % (4-12); NEUTROPHILS % (AUTO) 62.8 % (40-74)
--- NOTE | 2017-08-13 11:17 | NUR ---
NUTRITION FOLLOW-UP: ASSESS: 62 YO female admitted for infected decub ulcer. She is s/p debridement on 08/08. Per surgery, pt has had excellent wound healing progress. She has wound vac on buttocks. Currently she is on a diabetic diet with variable PO intake of bites-100%. Pt was receiving Glucerna BID but she stated that she doesn't like it. She reported that she typically drinks Boost at home. She has only tried the Avinash protein once. Pt is willing to try the Avinash. Discussed importance of protein for wound healing. Pt verbalized understanding. 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 LABS: Reviewed. Aeronautical Engineering Professor 1.66, Glu 131, ca 8.0, Alb 2.5 MEDS: Reviewed. GI: 551ml colostomy output 08/11 SKIN: Un-stageable PI on R ischial tuberosity and posterior L thigh, DTI of R medial heel and L lateral 5th metatarsal tuberosity. Per surgery, wounds are healing CURRENT WT: 114.5 kg. BMI 37.3kg/m2, IBW: 65.9 kg. (no new wt since admit due to bed pt is in) DIET: Diabetic, PO bites-100% EST. NEEDS (WOUNDS, OBESITY, PARAPLEGIA): 8154-4224 kcals (22-30 kcals/kg BW), 75-115 g protein (1.2-1.8 g/kg IBW) NUTRITION DIAGNOSIS: 1.) Increased nutrient needs related to increased demand for nutrient as evidenced by current skin issues.--PERSISTS NUTRITION INTERVENTION: 1.) Will d/c Glucerna was pt does not like it. 2.) Will continue Avinash on B and D trays with diet sprite. Pt is agreeable to try the Avinash. 3.) Discussed importance of protein for wound healing and making sure to eat protein with all meals. Pt verbalized understanding. MONITOR / EVAL: PO intake, labs, wounds, nutritional status. Follow per moderate nutritional risk guidelines.
[2017-08-13] MEDS: Lactulose 20 Gm/30 mL 30 mL Syrup PO PRN ×2 (11:26→17:52)
[2017-08-13] MEDS: DAPTOmycin Inj 750 MG in 0.9% Sodium Chloride 50 ML IV SCH (11:38)
[2017-08-13] MEDS: Meropenem Inj 1,000 MG in 0.9% Sodium Chloride 100 ML IV SCH (12:47)
[2017-08-13] MEDS: buPROPion SR 150 mg ER12 Tablet PO SCH ×2 (12:58→20:04)
[2017-08-13 13:34] VITALS: BP 132/82; PULSE 91; RESP 17; O2SAT 97
--- NOTE | 2017-08-13 14:18 | NUR ---
Inpatient Wound Nurse Patient seen for NPWT patency. Suction is maintained at 125 mm Hg and black foam is sucked down flat. Unit seal check indicator is green. Most distal edges of drape are not adhered and were reinforced by this CWON RN. Drape does not appear sucked down, appears loose like a drained blister. Moisture is noted around entire distal margins of drape. CWON RN reinforced these loose areas during patient's bath this morning. Conversation completed with Dr. Mazariegos and PIERRE Mckeon. Both recommend trimming of loose drape and attempts to reseal should foam lose suction. Call was placed to [facility] rep Melissa Menjivar (CWOCN RN) who will join this CWON RN tomorrow for complete vac change at 9 am. Strategies include use of stoma paste and Coloplast strip paste. Patient updated and agreeable. Patient was offered assistance with changing ostomy today and again declined, stated that "I will take care of it tomorrow." No further attempts to educate patient on importance of wafer change were made today. CWON RN will try again tomorrow.
--- NOTE | 2017-08-13 14:38 | PCM.PNMED ---
Subjective Date of Service Aug 13, 2017 Subjective Patient is in the bed, complaining of generalized weakness. Exam Vital Signs Vital Sign - Last Date Time Temp Pulse Resp B/P Pulse Ox O2 Delivery O2 Flow Rate FiO2 08/13/17 13:34 36.2 91 17 132/82 97 Room Air 08/09/17 20:45 1.00 Intake and Output 08/12/17 08/12/17 08/13/17 Cumulative From/Thru 15:00 23:00 07:00 08/07/17 10:18 - 08/13/17 06:07 Intake Total 1460 ml 998 ml 33765 ml Output Total 1300 ml 1150 ml 16691 ml Balance 160 ml -152 ml 5402 ml Intake Oral 600 ml 800 ml 8583 ml IV Total 860 ml 198 ml 11189 ml Output Urine Total 1300 ml 1150 ml 89663 ml Stool Total 1501 ml Estimated Blood Loss 55 ml # Bowel Movements 0 Exam GENERAL: Alert, not in distress, obese HEAD: atraumatic, normocephalic, no bruises. EYES: RORY, EOMI, anicteric, able to fully open and close eyelids SKIN: Skin color normal, turgor normal. Multiple wounds and unstageable pressure ulcers on the buttocks present on admission EAR, NOSE, MOUTH, THROAT: Lips, oral mucosa, tongue are moist, pink, no lesions. Ears normal appearance, no lesions. NECK: no jugulovenous distention; supple ROM normal. RESPIRATORY: Lungs clear to auscultation. Good diaphragmatic excursion. CARDIAC: normal S1 and S2; no rubs, murmurs, or gallops; regular rate and rhythm ABDOMEN: Abdomen soft, non-tender. BS normal. MUSCULOSKELETAL: ROM full, muscles are not tender EXTREMITIES: +1-2 pitting edema in LE, no new deformities. NEURO: Alert, oriented X 3, Cranial nerves II-XII intact, lower paraplegia present PULSES: 2+ radial, 2+ carotid REVIEW OF SYSTEMS: GENERAL: +++ malaise, no fevers., SEE HPI HEENT: Negative for frequent or significant headaches All other reviewed and negative other than HPI. IVs and Medications Medications Reviewed: Medications were reviewed in detail Lab and Diagnostics Result Diagram: 08/13/17 0555 08/13/17 0555 Assessment & Plan 62 y/o female patient with past medical history of T12 paraplegia for many decades, hyperthyroidism, hypertension, type II diabetes, neurogenic bladder with suprapubic catheter, s/p colostomy, and history of frequent UTIs, history of decubitus ulcer was sent from wound care clinic by Dr Hamlin for debridement. Infected decubitus ulcer with suspected osteomyelitis, s/p I&D 08/08/17, 08/12/17 with wound vac placement. - stable, improving - wbc 18.2,ESR 65,Hb 10.8,plt 643,Cr 1.88( baseline 1.4),procal 0.26 - Blood culture sent, patient received oral antibiotics recently. MRSA nares requested - ID following - surgery following Plan - c/w Wound care - c/w antibiotics daptomycin and meropenem as per ID recommendation - Follow up cultures sent 08/12/17 UTI - Stable -UA with pyuria , Urine culture - pansensitive PSEUDOMONAS AERUGINOSA - Continue with meropenem Acute kidney injury on CKD stage 2 -Worsening Plan - c/w IVF - monitor kidney function Type II diabetes - stable - ISS, HGP, Accucheck AC HS, DM diet. HTN - BP stable, - hold Coreg for now Hypothyroidism - stable - continue home dose levothyroxine Osteoporosis - stable - continue home alendronate every Saturday GERD - stable - continue home dose omeprazole Depression - stable - continue home med Bupropion T12 paraplegia with ostomy -paraplegic care with frequent turning Chronic pain - home dose Duloxetine and scheduled Oxycontine continued Chronic constipation - stable Obesity, BMI 37.3 - With sacral ulcers and increased BMI, will require specialized bed DVT PROPHYLAXIS: Lovenox Code status: Patient would like to be full code Disposition: discharge in 2-3 days after patient improves. Plan of care discussed with treatment team; Labs, radiology tests reviewed. Plan of care, available alternatives were discussed and reviewed with patient. All questions answered. Patient verbalized understanding, approved and agreed to plan of care. VTE Mechanical Devices: Intermittant Pneumatic CD Resuscitation Status: CPR: Attempt Resuscitation Tom Franklin MD Aug 13, 2017 14:38
--- NOTE | 2017-08-13 17:04 | NUR ---
Social Work- Update Note Spoke with pt who expressed concerns about returning to [facility], stating that they had requested she be placed elsewhere. ERICA unclear of the entire story, placed telephone call to [facility] for clarification of information. Eleni, admissions today at [facility], is unclear of the story and Tawana will be available tomorrow morning. SW to call Tawana tomorrow for clarification and preparation for d/c. ERICA will continue to follow. JUNITO Araiza
--- NOTE | 2017-08-13 18:35 | PROG NOTE ---
[address] [address] PROGRESS NOTE PATIENT: LION VERA : 1955 MR#: [id number] ADMIT: 08/07/2017 JOB ID: [id number] INFECTIOUS DISEASE FOLLOWUP: DATE: 08/13/2017 REASON FOR FOLLOWUP: Large right buttock decubitus ulcer in a paraplegic woman. INTERVAL HISTORY: The patient reports no fevers, chills, or sweats overnight. No new pulmonary complaints. She does note she has pruritus which has been a longstanding problem; in fact, predates her admission to this facility. No new abdominal complaints. The wound VAC is now present on her right buttock and does not bother her, but of course she has no sensation in that area. PHYSICAL EXAMINATION: Reveals an afebrile, obese woman. Temp 36.2, pulse 91, respiratory rate 17, blood pressure 132/82. She is saturating well on room air. She is in no acute distress. No skin rashes noted. Mental status is clear. Lungs distant but relatively clear anteriorly. Cardiac tones distant without new murmur. Abdomen: Obese, soft, nontender. Colostomy is present. We did not roll the patient over to look at her wound VAC as it would not reveal much and it would be very difficult, though we did see yesterday in detail. LABORATORY DATA: Labs include white count 13,000 today which is pretty stable. She does have 9% eosinophils. In reviewing her records last year, she had an unexplained period of hypereosinophilia which resolved. It is unclear looking at the hospital notes what happened to cause eosinophilia which then spontaneously resolved. Creatinine now 1.66. CPK 16. Micro studies include the Pseudomonas which grew from urine, MRSA which was found in the nasal PCR. The deep cultures we took yesterday during the wound change of the right buttock are still negative. IMAGING: No new imaging is available. IMPRESSION: This is a complex case of a patient with paraplegia and a very large right buttock abscess. When we saw it yesterday it did not look tremendously infected but we are continuing to operate on the premise that there probably is at least some degree of infection in this large wound which extends down close to but not involving apparently the right ischium. Also of note, this patient has developing eosinophilia while receiving daptomycin as part of her antibiotic therapy. At this point, she has no respiratory complaints and no cough, so will continue to closely watch. RECOMMENDATIONS: Will continue on daptomycin and meropenem while we await our cultures. Will continue to closely follow with you.
--- NOTE | 2017-08-13 18:49 | NUR ---
POST-OP PROGRESS Oxicodone 20 mg PO and Dilaudid IVP administered for complaints of pain. Tolerating liquids PO and her diet well. Denies nausea. No emesis noted. Denies SOB. Bedrest at this time. Frequently repositioned. Suprapubic cath in place draining to vinnie colored UO. Woundvac in place and was assessed by WCS this morning. WCS is aware of the moisture in the seal and some leakage. Woundvac is functioning without any issues at this time. Colostomy in place with minimal output noted.
[2017-08-13] MEDS: DULoxetine 30 mg DR Capsule PO SCH (20:04)
[2017-08-13 20:50] VITALS: BP 130/90; PULSE 89; RESP 16; O2SAT 97
[2017-08-14] MEDS: Meropenem Inj 1,000 MG in 0.9% Sodium Chloride 100 ML IV SCH ×2 (00:34→12:34)
[2017-08-14] MEDS: HYDROmorphone 1 mg/mL Inj IVPUSH PRN ×5 (00:35→20:49)
[2017-08-14] MEDS: diphenhydrAMINE 25 mg Capsule PO PRN (00:49)
[2017-08-14] MEDS: Naphazoline/Pheniramine 5 mL Ophthalmic Solution BOTH_EYES PRN (02:47)
--- NOTE | 2017-08-14 04:57 | NUR ---
Pain/Wound-vac Patient is alert and oriented x3, able to communicate needs. c/o back pain, and requested pain medications every 2-4hrs; pt able to sleep on and off post meds. Patient also requested for Lorazepam for anxiety and Benadryl for itching. symptoms slightly relieved. Wound vac functional, no leak noted. Colostomy and suprapubic catheter draining well, no leak noted. Patient slept on and off, repositioned Q2hrs and when needed.
[2017-08-14] MEDS: 0.9% Sodium Chloride 1,000 ML IV SCH ×2 (06:07→12:43)
[2017-08-14 06:11] VITALS: BP 145/80; PULSE 89; RESP 16; O2SAT 95
[2017-08-14 07:11] LABS: Mean Corpuscular Hemoglobin 25.5 pg (27.0-35.0); Mean Corpuscular Volume 84.2 fL (81-100)
[2017-08-14] MEDS: Insulin LISPRO 300 Unit/3 mL Inj SUBQ SCH ×4 (08:00→21:55)
--- NOTE | 2017-08-14 08:22 | NUR ---
SHELTER FOLLOW UP: Spoke with Tawana at [facility] and asked her to speak with her social work case manager Mary Jo, we did receive paperwork regarding room change but they need to be the ones to come in and have the conversation about moving her rooms. 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 Spoke with BRAND ATTENDANT Amusement Park Ride Mechanic about this as well. Updated BRAND ATTENDANT
[2017-08-14] MEDS: Polyethylene Glycol (PEG) 17 Gm Powder PO SCH ×2 (08:30→12:30)
[2017-08-14] MEDS: buPROPion SR 150 mg ER12 Tablet PO SCH ×2 (09:17→20:48)
[2017-08-14] MEDS: DAPTOmycin Inj 750 MG in 0.9% Sodium Chloride 50 ML IV SCH (10:03)
--- NOTE | 2017-08-14 10:19 | PROG NOTE ---
[address] [address] PROGRESS NOTE PATIENT: LION VERA : 1955 MR#: [id number] ADMIT: 08/07/2017 JOB ID: [id number] DATE: 08/14/2017 INFECTIOUS DISEASE FOLLOWUP NOTE: REASON FOR FOLLOWUP: Large right buttock decubitus ulcer with superinfection. INTERVAL HISTORY: Overnight, the patient has been afebrile and free of new symptoms. She has minimal, if any, pain around her right buttock, as she is paraplegic. There is no significant sensation there. No fevers. No chills. No sweats. No significant respiratory complaints. PHYSICAL EXAMINATION: Reveals an obese woman lying on her side, as the Wound Management is currently dressing her decubitus. She has been afebrile. Temp 36.3, pulse 89, respiratory rate 16, blood pressure 145/80. She is saturating well on room air. Lungs and abdomen without change. We examined the right buttock wound with the Wound Management team. There is still a massive decubitus ulcer with about 15% necrosis but the other 85% is nicely granulating. Wound VAC is being reapplied, though it is difficult given her size and the extent of this lesion. LABORATORIES: Include a white count stable at 13,000, platelet count 520,000. Creatinine 1.71, calcium 8.3. CPK was 16. Cultures done from the decubitus during a dressing change two days ago are negative. The urine did grow Pseudomonas aeruginosa, though it is unclear if she has a UTI or if that is just colonization, and a nasal swab was positive for MRSA. IMPRESSION: This is a complex case of a patient with a massive right buttock decubitus ulcer, which extends almost down to, but apparently does not involve, the bone. At this point, there is excellent granulation tissue and no odor or purulence. I am inclined to think that infection is a small part of what is going on in this patient and though we have no diagnostic cultures, I am inclined to continue with very broad-spectrum antibiotics for a short period of time and then wrap up antibiotics at about 10 days total. RECOMMENDATIONS: 1. Continue daptomycin and meropenem. 2. We have reached out to our surgical colleagues and will be speaking to them later today. If they are in agreement that there was no osteo or significant untreated infection, will probably pick a stop date for antibiotics in the near future and conclude our antibiotic therapy.
--- NOTE | 2017-08-14 10:54 | PCM.PNSURG ---
Subjective Date of Service: Aug 14, 2017 Date of Service: Aug 14, 2017 Visit Information: Reason for Visit Infected Right Ischiosacral Decubitis Ulcer Objective Vital Sign- Last 8 Hours Date Time Temp Pulse Resp B/P Pulse Ox O2 Delivery O2 Flow Rate FiO2 08/14/17 06:11 36.3 89 16 145/80 95 Room Air Intake and Output- Last 8 Hour 08/14/17 Cumulative From/Thru 07:00 08/07/17 10:18 - 08/14/17 06:45 Intake Total 800 ml 70871 ml Output Total 2850 ml 35587 ml Balance -2050 ml 3412 ml Intake Oral 800 ml 86999 ml IV Total 30132 ml Output Urine Total 1750 ml 40617 ml Stool Total 1100 ml 2601 ml Estimated Blood Loss 55 ml # Bowel Movements 1 1 Result Diagram: 08/14/1755 08/14/1755 Assessment & Plan Impression 62 yo F with right ischiosacral decubitus ulcer not involving the bone s/p wound debridement and placement of wound vacuum therapy on 08/08, changed on with excellent wound progress, granulation tissue coming in, no remaining necrotic tissue or concern for wound infection. Will change again on 08/15 at bedside. Problems: Plan - Antibiotics per ID, talked with Dr. Morales and planning for 7-10 day course and no further treatment - Continue wound vac to 125mmhg continuous suction, next change on 08/15 with wound care team. - If leakage of wound vac, poor seal, reinforce with wound vac drape material - Change positions on clinitron bed regularly - Appreciate wound care consultation and involvement for termite technician wound vac changes and planning Resuscitation Status: CPR: Attempt Resuscitation Susy Mazariegos MD Aug 14, 2017 10:54
[2017-08-14 13:29] VITALS: BP 145/76; PULSE 94; RESP 16; O2SAT 95
[2017-08-14] MEDS: Ondansetron 2 mg/mL 2 mL Inj IVPUSH PRN (13:32)
--- NOTE | 2017-08-14 13:57 | NUR ---
Nausea Pt c/o nausea and stated she felt that her pills got stuck in her throat and were dissolving. Pt had approximately 10 mL of clear emesis that looked like saliva. Pt is on a Clinitron bed and immediately slides down in it every time the head of the bed is raised. Pulled pt up in the bed as far as possible and then raised the head of the bed. Administered 4 mg IVP Zofran and 1 simethecone chewable tablet. Also gave pt some applesauce to help clear her throat. Left pt with head of bed elevated. Care continues.
--- NOTE | 2017-08-14 15:03 | NUR ---
Inpatient Wound and Ostomy Nurse NPWT unit noted without leaks and seal indicator is green. However, distal portion of drape is not attached and skin under drape appears increasingly macerated, with white and ruffled texture. I Clinical Specialist Melissa GONZALES website project manager to assist with vac change and obtaining improved drape adhesion. Patient was placed into deep L side-lying position and bed was deflated. This is painful for patient, especially of L shoulder which she states is rotator cuff injury. All drape was removed and black foam popped out of wound easily. Entire wound was cleansed with NS and blotted dry. Wound bed beefy red and granulating except for three separate areas of black tissue. These areas are soft and well-adhered to wound bed and appear as necrosis although they may be cauterized areas established during OR debridement. Total areas of black tissue and well-adhered, thin, yellow slough in center of wound bed comprise not more than 15% of total wound bed. CWON RN attempted to find tunnel noted prior to debridement last week and none found despite multiple and extensive palpation with Q tip. Periwound skin is macerated at distal L margin and all of periwound is denuded and erythemic, most likely due to tape allergy that flared prior to admit. All of this denuded skin was covered with hydrocolloid up to point where tissue changes planes and slopes inward toward interior pelvis. With hydrocolloids completely framing wound, it now measures 7 cm L x 19 cm W and 5 cm D. 100 ml of thin, sanguinous fluid noted in canister. Unlike the dressing change on Saturday, today's wound bed was coagulated from start to finish and no active bleeding was noted. One piece of black foam was cut to fit within wound bed and then a track created for track pad on R hip. Seal obtained with additional caulking with stoma paste around labia, anus, and in inguinal fold. Expect next NWPT vac change to be Saturday or Saturday. Patient will likely have transferred back to SNF by end of this week. CWON RN will change out unit if SNF supplies their own vac. Patient should follow up in Wound Center next week. Staff report continued leaking around SPC and patient requests urology consult. No urine was detected on patient's skin but small amount of pasty exudate noted around SPC. Patient had initially agreed to complete ostomy system change this afternoon once she felt better following pain resultant of vac change. However, she has declined 2x this afternoon to complete this. By self-report, this ostomy system has been in place 11 days and is well past WOCN recommended regimen. Patient stated that she agrees to system change tomorrow.
--- NOTE | 2017-08-14 17:00 | NUR ---
Social Work- Readiness for Discharge/Multidisciplinary Rounds Data: EMR reviewed. Pt is on day 7 of hospitalization. Pt discussed in multidisciplinary rounds, pt is not medically stable for discharge at this time. Discussed this case with Travel Manager Janet. Janet confirms that pt will require wound VAC at discharge, also recommending low air loss mattress for patient. Aware the clinitron is not able to be provided at [facility]. ERICA spoke with Tawana at [facility] regarding discharge plan and chcf care. Tawana is happy to accept pt back at discharge and is aware of pt's medical needs including catheter and wound VAC. States the social services manager from [facility] will be coming by to speak with the pt regarding her room change at [facility]. Tawana confirms that she will order the low air loss bed for patient. Also confirms that they have an in-house wound VAC and plans on sending it over with her ROTARY DERRICK OPERATOR for [facility] Travel Manager to put on pt prior to discharge. Pt to discharge back to [facility] as a skilled pt through [facility] due to care needs, then transitioning back to LTC through [facility]. Pt will likely require BLS transport given her wounds, no BLS order received at this time. Pt is agreeable to returning to [facility] when medically stable. SW will continue to follow. Assessment: Pt for whom SNF is medically indicated at this time. Plan: Pt will discharge back to [facility] when medically stable. Pt will likely require BLS transport given her wounds. SW will continue to follow. Torri Vernon, ROTARY DERRICK OPERATOR
--- NOTE | 2017-08-14 17:46 | PCM.PNMED ---
Subjective Date of Service Aug 14, 2017 Subjective Patient is independent, feels better. Wounds look better, care discussed with wound care and infectious disease service. Exam Vital Signs Vital Sign - Last Date Time Temp Pulse Resp B/P Pulse Ox O2 Delivery O2 Flow Rate FiO2 08/14/17 13:29 37.2 94 16 145/76 95 Room Air 08/09/17 20:45 1.00 Intake and Output 08/13/17 08/13/17 08/14/17 Cumulative From/Thru 15:00 23:00 07:00 08/07/17 10:18 - 08/14/17 06:45 Intake Total 1560 ml 800 ml 75741 ml Output Total 1500 ml 2850 ml 74863 ml Balance 60 ml -2050 ml 3412 ml Intake Oral 1560 ml 800 ml 68333 ml IV Total 48551 ml Output Urine Total 1500 ml 1750 ml 81007 ml Stool Total 1100 ml 2601 ml Estimated Blood Loss 55 ml # Bowel Movements 1 1 Exam GENERAL: Alert, not in distress, obese HEAD: atraumatic, normocephalic EYES: EOMI, anicteric, able to fully open and close eyelids SKIN: Skin color normal. Multiple wounds and unstageable pressure ulcers on the buttocks present on admission EAR, NOSE, MOUTH, THROAT: Lips, oral mucosa, tongue are moist, pink, no lesions. NECK: no jugulovenous distention; supple ROM normal. RESPIRATORY: Lungs clear to auscultation. Good diaphragmatic excursion. CARDIAC: normal S1 and S2; no rubs, murmurs, or gallops; regular rhythm ABDOMEN: Abdomen soft, non-tender. BS normal. MUSCULOSKELETAL: ROM full, muscles are not tender EXTREMITIES: +1-2 pitting edema in LE, no new deformities. NEURO: Alert, oriented X 3, Cranial nerves II-XII intact, lower paraplegia present PULSES: 2+ radial, 2+ carotid REVIEW OF SYSTEMS: GENERAL: +++ malaise, no fevers., SEE HPI HEENT: Negative for frequent or significant headaches All other reviewed and negative other than HPI. IVs and Medications Medications Reviewed: Medications were reviewed in detail Lab and Diagnostics Result Diagram: 08/14/1755 08/14/17654 Assessment & Plan 62 y/o female patient with past medical history of T12 paraplegia for many decades, hyperthyroidism, hypertension, type II diabetes, neurogenic bladder with suprapubic catheter, s/p colostomy, and history of frequent UTIs, history of decubitus ulcer was sent from wound care clinic by Dr Hamlin for debridement. Patient was diagnosed with infected decubitus ulcers with suspected osteomyelitis. The patient underwent I&D 08/08/17, 08/12/17 with wound vac placement. She is being treated with vancomycin and daptomycin 90 Infected decubitus ulcer with suspected osteomyelitis, s/p I&D 08/08/17, 08/12/17 with wound vac placement. - stable, improving - wbc 18.2,ESR 65,Hb 10.8,plt 643,Cr 1.88( baseline 1.4),procal 0.26 - ID following - surgery following Plan - c/w Wound care - c/w antibiotics daptomycin and meropenem as per ID recommendation - Follow up cultures sent 08/12/17 UTI - Stable -UA with pyuria , Urine culture - pansensitive PSEUDOMONAS AERUGINOSA - Continue with meropenem Acute kidney injury on CKD stage 2 - Slowly worsening Plan - c/w IVF - monitor kidney function Type II diabetes - stable - ISS, HGP, Accucheck AC HS, DM diet. HTN - BP stable, - hold Coreg for now Hypothyroidism - stable - continue home dose levothyroxine Osteoporosis - stable - continue home alendronate every Saturday GERD - stable - continue home dose omeprazole Depression - stable - continue home med Bupropion T12 paraplegia with ostomy -paraplegic care with frequent turning Chronic pain - home dose Duloxetine and scheduled Oxycontine continued Chronic constipation - stable Obesity, BMI 37.3 - With sacral ulcers and increased BMI, will require specialized bed DVT PROPHYLAXIS: Lovenox Code status: Patient would like to be full code Disposition: discharge in 2-3 days after patient improves. Plan of care discussed with treatment team; Labs, radiology tests reviewed. Plan of care, available alternatives were discussed and reviewed with patient. All questions answered. Patient verbalized understanding, approved and agreed to plan of care. VTE Mechanical Devices: Intermittant Pneumatic CD Resuscitation Status: CPR: Attempt Resuscitation Tom Franklin MD Aug 14, 2017 17:46
[2017-08-14] MEDS: DULoxetine 30 mg DR Capsule PO SCH (20:48)
[2017-08-14 21:49] VITALS: BP 121/75; PULSE 89; RESP 18; O2SAT 94
[2017-08-15] MEDS: Meropenem Inj 1,000 MG in 0.9% Sodium Chloride 100 ML IV SCH ×2 (00:41→13:17)
[2017-08-15] MEDS: 0.9% Sodium Chloride 1,000 ML IV SCH ×3 (00:42→22:01)
[2017-08-15] MEDS: LORazepam 0.5 mg Tablet PO PRN ×2 (01:40→23:45)
[2017-08-15] MEDS: HYDROmorphone 1 mg/mL Inj IVPUSH PRN ×5 (02:55→23:46)
--- NOTE | 2017-08-15 03:56 | NUR ---
Pain/ Activity Pt is alert and responsive, mostly drowsy but easily arouse. Medicated for lower back pain on this shift with dilaudid 1mg IV push x2, and oxycodone x1 with some relief so far. Denies N/V/D adn no acute resp dsitres or SOB noted. Repositioned per request and special mattress clinatron in place. Suprapubic cath is patent and draining yellow urine. Wound vac on right gluteal intact, patent and functioning with no concerns. Will continue to monitor.
[2017-08-15 04:56] VITALS: BP 122/72; PULSE 89; RESP 16; O2SAT 97
[2017-08-15 05:36] LABS: Mean Corpuscular Hemoglobin 25.3 pg (27.0-35.0); Mean Corpuscular Volume 85.2 fL (81-100)
[2017-08-15] MEDS: diphenhydrAMINE 25 mg Capsule PO PRN ×2 (05:49→20:59)
[2017-08-15] MEDS: Insulin LISPRO 300 Unit/3 mL Inj SUBQ SCH ×4 (08:00→22:00)
[2017-08-15] MEDS: Polyethylene Glycol (PEG) 17 Gm Powder PO SCH (08:06)
[2017-08-15] MEDS: buPROPion SR 150 mg ER12 Tablet PO SCH ×2 (08:07→20:59)
[2017-08-15 08:54] VITALS: BP 146/84; PULSE 76; RESP 16; O2SAT 93
--- NOTE | 2017-08-15 10:43 | NUR ---
Inpatient Wound and Ostomy Nurse Patient agreeable to ostomy system change today. Previously applied ostomy pulled off with challenge, left an erythemic imprint that lightened by the time new system was applied. Peristomal skin intact, pink, warm, no ulcerations or skin damage noted. Centered os, firm and dark pink, no issues. Very small amount of soft dark brown stool noted in removed pouch. Peristomal skin was cleaned and dried well. Coloplast hydrocolloid, convex wafer was applied and pouch attached without challenge. Patient requested Temo ring, which was used, as well. Warm blanket from blanket warmer was placed over system to improve adhesion. NPWT draining appropriately, drape intact, no complications. Anticipate discharge back to SNF tomorrow. Melissa Menjivar, [employer] Clinical Specialist, is available to meet with SNF staff if they have any questions regarding NPWT application. She has been updated with patient's location and discharge date. Next vac change should be Saturday.
--- NOTE | 2017-08-15 10:57 | PROG NOTE ---
[address] [address] PROGRESS NOTE PATIENT: LION VERA : 1955 MR#: [id number] ADMIT: 08/07/2017 JOB ID: [id number] DATE: 08/15/2017 REASON FOR FOLLOWUP: Massive right buttock decubitus wound in a paraplegic. INTERVAL HISTORY: Overnight, the patient has had no fevers, chills, or sweats. She reports no shortness of breath, cough, or chest pain. No particular issues with her colostomy. Yesterday, I discussed this case in detail with of Surgery. and I were in agreement that there is no significant infection of the massive right buttock decubitus ulcer and that there was also no evidence of osteomyelitis. PHYSICAL EXAMINATION: Reveals an afebrile woman. Temp 36.9, pulse 76, respiratory rate 16, blood pressure 146/84. She is saturating on room air. She is in no acute distress. Mental status is clear. Oral cavity negative. Lungs clear, but distant. Cardiac tones without change. Abdomen benign. Colostomy in place. I did not re-examine her decubitus wound today due to the difficulties of rolling over on a [place] bed. LABORATORIES: Include a white count of 14,000 which is quite stable platelets 495. She does have a mild eosinophilia. Creatinine 1.48. Urinalysis was initially packed with white cells and grew Pseudomonas aeruginosa. The blood cultures were negative and the deep culture of the decubitus wound we did on the 25th on rounds has proven to be completely negative. IMPRESSION: No evidence for osteomyelitis or deep wound infection at this time. The patient is colonized with methicillin resistant Staphylococcus aureus as well as obviously Pseudomonas. RECOMMENDATIONS: 1. Antibiotics through tomorrow and then discontinue. 2. Nasal Bactroban for 10 days. 3. ID will go ahead and sign off at this point.
[2017-08-15] MEDS: DAPTOmycin Inj 750 MG in 0.9% Sodium Chloride 50 ML IV SCH (11:39)
[2017-08-15] MEDS: Lactulose 20 Gm/30 mL 30 mL Syrup PO PRN ×2 (12:06→17:52)
[2017-08-15] MEDS: Mupirocin 2% 22 Gm Ointment NASAL SCH ×2 (12:29→21:00)
[2017-08-15 12:36] VITALS: BP 139/74; PULSE 82; RESP 17; O2SAT 99
--- NOTE | 2017-08-15 14:48 | PCM.PNMED ---
Subjective Date of Service Aug 15, 2017 Subjective Patient is in the bed, feels better. Exam Vital Signs Vital Sign - Last Date Time Temp Pulse Resp B/P Pulse Ox O2 Delivery O2 Flow Rate FiO2 08/15/17 12:36 36.1 82 17 139/74 99 Room Air 08/09/17 20:45 1.00 Intake and Output 08/14/17 08/14/17 08/15/17 Cumulative From/Thru 15:00 23:00 07:00 08/07/17 10:18 - 08/15/17 05:52 Intake Total 1440 ml 2232 ml 37920 ml Output Total 1900 ml 1300 ml 69669 ml Balance -460 ml 932 ml 3884 ml Intake Oral 1440 ml 520 ml 19730 ml IV Total 1712 ml 76732 ml Output Urine Total 1900 ml 1300 ml 33806 ml Stool Total 2601 ml Estimated Blood Loss 55 ml # Bowel Movements 0 0 1 Exam GENERAL: Alert, not in distress, obese HEAD: atraumatic, normocephalic EYES: EOMI, anicteric, able to fully open and close eyelids SKIN: Skin color normal. Multiple wounds and unstageable pressure ulcers on the buttocks present on admission EAR, NOSE, MOUTH, THROAT: Lips, oral mucosa, tongue are moist, pink, no lesions. NECK: no jugulovenous distention; supple ROM normal. RESPIRATORY: Lungs clear to auscultation. CARDIAC: normal S1 and S2; no rubs, or gallops; regular rhythm ABDOMEN: Abdomen soft, non-tender. BS normal. MUSCULOSKELETAL: ROM full, muscles are not tender EXTREMITIES: +1-2 pitting edema in LE, no new deformities. NEURO: Alert, oriented X 3, Cranial nerves II-XII intact, lower paraplegia present PULSES: 2+ radial, 2+ carotid REVIEW OF SYSTEMS: GENERAL: +++ malaise, no fevers., SEE HPI HEENT: Negative for frequent or significant headaches All other reviewed and negative other than HPI. IVs and Medications Medications Reviewed: Medications were reviewed in detail Lab and Diagnostics Result Diagram: 08/15/1751408/15/17514 Assessment & Plan 62 y/o female patient with past medical history of T12 paraplegia for many decades, hyperthyroidism, hypertension, type II diabetes, neurogenic bladder with suprapubic catheter, s/p colostomy, and history of frequent UTIs, history of decubitus ulcer was sent from wound care clinic by Dr Hamlin for debridement. Patient was diagnosed with infected decubitus ulcers with suspected osteomyelitis. The patient underwent I&D 08/08/17, 08/12/17 with wound vac placement. She is being treated with vancomycin and daptomycin 90 Infected decubitus ulcer with suspected osteomyelitis, s/p I&D 08/08/17, 08/12/17 with wound vac placement. - stable, improving - wbc 18.2,ESR 65,Hb 10.8,plt 643,Cr 1.88( baseline 1.4),procal 0.26 - ID following - surgery following Plan - c/w Wound care - c/w antibiotics daptomycin and meropenem as per ID recommendation UTI - Stable -UA with pyuria , Urine culture - pansensitive PSEUDOMONAS AERUGINOSA - Continue with meropenem Acute kidney injury on CKD stage 2 - some improvement today noted Plan - c/w IVF - monitor kidney function Type II diabetes - stable - ISS, HGP, Accucheck AC HS, DM diet. HTN - BP stable, - hold Coreg for now Hypothyroidism - stable - continue home dose levothyroxine Osteoporosis - stable - continue home alendronate every Saturday GERD - stable - continue home dose omeprazole Depression - stable - continue home med Bupropion T12 paraplegia with ostomy -paraplegic care with frequent turning Chronic pain - home dose Duloxetine and scheduled Oxycontine continued Chronic constipation - stable Obesity, BMI 37.3 - With sacral ulcers and increased BMI, will require specialized bed DVT PROPHYLAXIS: Lovenox Code status: Patient would like to be full code Disposition: discharge in 2-3 days after patient improves. Plan of care discussed with treatment team; Labs, radiology tests reviewed. Plan of care, available alternatives were discussed and reviewed with patient. All questions answered. Patient verbalized understanding, approved and agreed to plan of care. VTE Mechanical Devices: Intermittant Pneumatic CD Resuscitation Status: CPR: Attempt Resuscitation oTm Franklin MD Aug 15, 2017 14:48
--- NOTE | 2017-08-15 15:41 | NUR ---
Social Work- Readiness for Discharge/Multidisciplinary Rounds Data: EMR reviewed. Pt is on day 8 of hospitalization. Pt discussed in multidisciplinary rounds, pt is not medically stable for discharge at this time. Pt to finish her IV abx tomorrow morning. Janet inpt policy specialist, will [facility] tomorrow prior to pt discharging. Pt will require BLS transport, no BLS order received at this time. Pt's case screens in for RCS report per hospital policy, report #[id number]. ERICA spoke with Tawana at [facility] regarding discharge plan and director long term care care. Tawana agreeable to accepting pt tomorrow, states that someone will bring over the wound VAC tomorrow prior to pt's discharge. Also spoke with Tawana about getting pt's electric wheelchair back to [facility], Tawana to look into this. Unsure if pt's electric wheelchair is charged. Pt will require BLS transport at discharge secondary to her decubitus ulcers. Pt expressed some confusion as to whether [facility] will be able to meet her needs. States that they have been resisting taking her back. Clarified this with [facility] who informs MULTIPLE KNIFE EDGE TRIMMER OPERATOR that the vault installer and Admissions have been discussing transferring pt down to [facility] to address her chronic wounds. This is not an acute transition or barrier to discharge. Pt updated of this and states understanding. Pt to discharge to [facility] tomorrow after her IV abx are completed. Paperwork in chart. Pt updated and agreeable to plan. SW will continue to follow until time of d/c. Assessment: Pt for whom SNF is medically indicated at this time. Plan: Pt will discharge back to [facility] tomorrow after IV abx are complete. Pt will likely require BLS transport given her wounds. Paperwork in chart. SW will continue to follow. Torri Vernon MSW
[2017-08-15 18:34] VITALS: BP 135/73; PULSE 75; RESP 17; O2SAT 97
--- NOTE | 2017-08-15 18:43 | NUR ---
Shift: VSS, not on tele, RA O2 sats 97%. Tolerating PO intake, see flow sheet for blood sugars, suprapubic cath draining adequately, colostomy bag changed by drag out man. Pt very concerned about not having a bowel movement, all PRN bowel meds given, per Wound Care note pt had small amount of stool in bag this AM. Pt continues to c/o 6/10 pain, prefers IV Dilaudid for pain management. Plan to stop IV antibiotics tomorrow, d/c to SNF tomorrow. Care ongoing.
[2017-08-15 19:10] VITALS: BP 124/70; PULSE 78; RESP 16; O2SAT 97
[2017-08-15] MEDS: DULoxetine 30 mg DR Capsule PO SCH (20:59)
[2017-08-15] MEDS: Naphazoline/Pheniramine 5 mL Ophthalmic Solution BOTH_EYES PRN (23:45)
[2017-08-16] MEDS: Meropenem Inj 1,000 MG in 0.9% Sodium Chloride 100 ML IV SCH (00:22)
[2017-08-16] MEDS: diphenhydrAMINE 25 mg Capsule PO PRN ×2 (03:43→11:07)
[2017-08-16] MEDS: HYDROmorphone 1 mg/mL Inj IVPUSH PRN ×4 (03:44→16:01)
[2017-08-16 05:12] VITALS: BP 139/74; PULSE 82; RESP 16; O2SAT 97
--- NOTE | 2017-08-16 05:28 | NUR ---
General Pt is alert, oriented, forgetful at times but able to make needs known. No changes in LOC noted. Denies N/V/D, resp distress and/or SOB. Medicated for chronic back pain with dilaudid and oxycodone on this shift with some relief. Repositioned as tolerated. Wound Vac on Rt buttock in place, patent and functioning with no issue. Suprapubic cath is patent and draining yellow urine with no issue. Pt is resting comfortably in bed and call light w/in reach. Care continues.
[2017-08-16 06:02] LABS: Mean Corpuscular Hemoglobin 25.2 pg (27.0-35.0); Mean Corpuscular Volume 84.4 fL (81-100)
[2017-08-16] MEDS: Insulin LISPRO 300 Unit/3 mL Inj SUBQ SCH ×4 (07:50→22:00)
--- NOTE | 2017-08-16 08:11 | PCM.PNSURG ---
Subjective Date of Service: Aug 16, 2017 Date of Service: Aug 16, 2017 Visit Information: Reason for Visit Infected Decubitis Date of Admission: Aug 07, 2017 at 11:18 Subjective: Wound vac seal holding well. Sleeping comfortably this morning. No acute events overnight. Planning for discharge today. Objective Vital Sign- Last 8 Hours Date Time Temp Pulse Resp B/P Pulse Ox O2 Delivery O2 Flow Rate FiO2 08/16/17 05:12 36.8 82 16 139/74 97 Room Air Intake and Output- Last 8 Hour 08/16/17 Cumulative From/Thru 07:00 08/07/17 10:18 - 08/16/17 06:46 Intake Total 1422 ml 05743 ml Output Total 620 ml 74518 ml Balance 802 ml 4831 ml Intake Oral 300 ml 50444 ml IV Total 1122 ml 38327 ml Output Urine Total 620 ml 81468 ml Stool Total 2601 ml Estimated Blood Loss 55 ml # Bowel Movements 1 General: No Acute Distress Lungs: Other (Breathing comfortably on room air.) SURGICAL WOUND : Wound General Appearence: Wound Vac (holding suction 125mmHg with serosanguinous output and no leak appreciated) Result Diagram: 08/16/17 0544 08/16/17 0544 Assessment & Plan Impression 62 yo F with right ischiosacral decubitus ulcer not involving the bone s/p wound debridement and placement of wound vacuum therapy on 08/08, changed on with excellent wound progress, granulation tissue coming in, no remaining necrotic tissue or concern for wound infection. Wound vac changed on 08/14, due for change at SNF on 08/17. Problems: Plan - Continue wound vac to 125mmhg continuous suctionm. - If leakage of wound vac, poor seal, reinforce with wound vac drape - Change positions on clinitron bed regularly - Appreciate wound care consultation and involvement for fdc wound vac changes and planning, already set up for outpatient ongoing management - Okay for discharge today, wound vac change tomorrow at facility Resuscitation Status: CPR: Attempt Resuscitation Yair,Susy Bhatt MD Aug 16, 2017 08:11
[2017-08-16] MEDS: buPROPion SR 150 mg ER12 Tablet PO SCH ×2 (09:25→22:44)
[2017-08-16] MEDS: DAPTOmycin Inj 750 MG in 0.9% Sodium Chloride 50 ML IV SCH (09:25)
[2017-08-16] MEDS: Polyethylene Glycol (PEG) 17 Gm Powder PO SCH (09:26)
[2017-08-16] MEDS: Mupirocin 2% 22 Gm Ointment NASAL SCH ×2 (09:28→22:45)
[2017-08-16 10:52] VITALS: BP 130/83; PULSE 97; RESP 16; O2SAT 96
--- NOTE | 2017-08-16 11:21 | NUR ---
RESIDENTIAL TRANSFER : Called and spoke with Tawana, patient's power chair is in room and is currently . They are working on getting the template clerk and finding best way to get patient's chair back to the room. Updated INSURANCE UNDERWRITER SALES Addendum: 08/16/17 at 1411 by MIL BEARD CM Received fax from [facility] and they were not able to get bed delivered today and it would be at least Saturday before the bed would be in house for this patient. Updated INSURANCE UNDERWRITER SALES and DEE HDZ.
[2017-08-16] MEDS: 0.9% Sodium Chloride 1,000 ML IV SCH ×2 (12:05→16:45)
[2017-08-16] MEDS: Hydrocortisone 2.5% 28 Gm Cream TOPICAL PRN (12:07)
--- NOTE | 2017-08-16 15:46 | NUR ---
Received call from JOHNNY East at [facility] [phone]. Kita reported patient history of multiple refusals when low air loss mattress was suggested, and requested in-hospital trial. Agreed to proceed with mattress trial. Communicated plan to Clinical Black Top Machine Operator. Equipment ordered by nursing unit. slps and SW updated.
--- NOTE | 2017-08-16 15:47 | PCM.PNMED ---
Subjective Date of Service Aug 16, 2017 Subjective Patient is in bed, feels better. Exam Vital Signs Vital Sign - Last Date Time Temp Pulse Resp B/P Pulse Ox O2 Delivery O2 Flow Rate FiO2 08/16/17 10:52 37.4 97 16 130/83 96 Room Air Intake and Output 08/15/17 08/15/17 08/16/17 Cumulative From/Thru 15:00 23:00 07:00 08/07/17 10:18 - 08/16/17 06:46 Intake Total 1645 ml 1422 ml 42649 ml Output Total 1500 ml 620 ml 26369 ml Balance 145 ml 802 ml 4831 ml Intake Oral 1020 ml 300 ml 01253 ml IV Total 625 ml 1122 ml 27753 ml Output Urine Total 1500 ml 620 ml 55618 ml Stool Total 2601 ml Estimated Blood Loss 55 ml # Bowel Movements 1 Exam GENERAL: Alert, not in distress, obese, in bed HEAD: atraumatic, normocephalic EYES: EOMI, anicteric, able to fully open and close eyelids SKIN: Multiple wounds and unstageable pressure ulcers on the buttocks present on admission EAR, NOSE, MOUTH, THROAT: Lips, oral mucosa, tongue are moist, pink, no lesions. NECK: supple ROM normal. RESPIRATORY: Lungs clear to auscultation. CARDIAC: normal S1 and S2; no rubs, regular rhythm ABDOMEN: Abdomen soft, non-tender. BS normal. MUSCULOSKELETAL: ROM full, muscles are not tender EXTREMITIES: +1-2 pitting edema in LE NEURO: Alert, oriented X 3, Cranial nerves II-XII intact, lower paraplegia present PULSES: 2+ radial, 2+ carotid REVIEW OF SYSTEMS: GENERAL: +++ malaise, no fevers., SEE HPI HEENT: Negative for frequent or significant headaches All other reviewed and negative other than HPI IVs and Medications Medications Reviewed: Medications were reviewed in detail Lab and Diagnostics Result Diagram: 08/16/1744 08/16/17 0544 Assessment & Plan 62 y/o female patient with past medical history of T12 paraplegia for many decades, hyperthyroidism, hypertension, type II diabetes, neurogenic bladder with suprapubic catheter, s/p colostomy, and history of frequent UTIs, history of decubitus ulcer was sent from wound care clinic by Dr Hamlin for debridement. Patient was diagnosed with infected decubitus ulcers with suspected osteomyelitis. The patient underwent I&D 08/08/17, 08/12/17 with wound vac placement. She finished course of treatment with vancomycin and daptomycin. Plan is to d/c her to facility and to continue wound care. Infected decubitus ulcer with suspected osteomyelitis, s/p I&D 08/08/17, 08/12/17 with wound vac placement. - stable, improving - wbc 18.2,ESR 65,Hb 10.8,plt 643,Cr 1.88( baseline 1.4),procal 0.26 - ID following - surgery following Plan - c/w Wound care - placement UTI - Stable -UA with pyuria , Urine culture - pansensitive PSEUDOMONAS AERUGINOSA - patient finished meropenem Acute kidney injury on CKD stage 2 - stable Plan - c/w IVF - monitor kidney function Type II diabetes - stable - ISS, HGP, Accucheck AC HS, DM diet. HTN - BP stable, - hold Coreg for now Hypothyroidism - stable - continue home dose levothyroxine Osteoporosis - stable - continue home alendronate every Saturday GERD - stable - continue home dose omeprazole Depression - stable - continue home med Bupropion T12 paraplegia with ostomy -paraplegic care with frequent turning Chronic pain - home dose Duloxetine and scheduled Oxycontine continued Chronic constipation - stable Obesity, BMI 37.3 - With sacral ulcers and increased BMI, will require specialized bed DVT PROPHYLAXIS: Lovenox Code status: Patient would like to be full code Disposition: discharge in 2-3 days after patient improves. Plan of care discussed with treatment team; Labs, radiology tests reviewed. Plan of care, available alternatives were discussed and reviewed with patient. All questions answered. Patient verbalized understanding, approved and agreed to plan of care. VTE Mechanical Devices: Intermittant Pneumatic CD Resuscitation Status: CPR: Attempt Resuscitation Tom Franklin MD Aug 16, 2017 15:46
--- NOTE | 2017-08-16 16:03 | NUR ---
NUTRITION FOLLOW-UP: ASSESS: 62 YO female admitted for infected decub ulcer. She is s/p debridement on 08/08. Per surgery, pt has had excellent wound healing progress. She has wound vac on buttocks. Pt receiving Avinash for improved post-op nutrition, currently with good po intake. 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 LABS: Reviewed. Ca 7.8, Glu 145, Cr 1.57 MEDS: Reviewed. GI: 551ml colostomy output 08/11 SKIN: Un-stageable PI on R ischial tuberosity and posterior L thigh, DTI of R medial heel and L lateral 5th metatarsal tuberosity. Per surgery, wounds are healing CURRENT WT: 114.5 kg. BMI 37.3kg/m2, IBW: 65.9 kg. (no new wt since admit due to bed pt is in) DIET: Diabetic, PO bites-100% EST. NEEDS (WOUNDS, OBESITY, PARAPLEGIA): 1243-5868 kcals (22-30 kcals/kg BW), 75-115 g protein (1.2-1.8 g/kg IBW) NUTRITION DIAGNOSIS: 1.) Increased nutrient needs related to increased demand for nutrient as evidenced by current skin issues.--PERSISTS NUTRITION INTERVENTION: 1.) Will continue Avinash on B and D trays with diet sprite. Pt is agreeable to try the Avinash. 2.) 08/13--Discussed importance of protein for wound healing and making sure to eat protein with all meals. Pt verbalized understanding. MONITOR / EVAL: PO intake, labs, wounds, nutritional status. Follow per moderate nutritional risk guidelines.
--- NOTE | 2017-08-16 16:51 | NUR ---
Inpatient Wound Nurse Patient requested ostomy system change due to Coloplast system applied yesterday not adhering. [place] system applied without challenge. Because [facility] SW would not accept patient today, despite patient's verbal agreement to comply with EDER bed, NPWT vac had to be changed today, as no CWON available over weekend. Wound vac was changed by CWON RN with assistance from Wound Center tech. Wound bed beefy red and granulating with exception of two dark red/black areas, approximately 1 cm L x 2.5 cm W in center of wound. No tunnel could be found. Edges are less macerated today and framing entire wound with hydrocolloid has improved periwound skin. Seal obtained with multiple applications of stoma paste and drape reinforcement. Sanguinous fluid noted in cannister, rate of drainage accumulation has decreased. NWPT will be changed again on Saturday. Anticipate discharge next week once patient has demonstrated compliance with EDER bed.
[2017-08-16 17:45] VITALS: BP 134/79; PULSE 83; O2SAT 98
[2017-08-16 19:36] VITALS: BP 122/76; PULSE 81; RESP 16; O2SAT 99
[2017-08-16] MEDS: HYDROmorphone 0.5 mg/0.5 mL iSecure Syringe IVPUSH PRN (20:53)
[2017-08-16] MEDS: DULoxetine 30 mg DR Capsule PO SCH (22:44)
[2017-08-16] MEDS: LORazepam 0.5 mg Tablet PO PRN (23:54)
[2017-08-17] MEDS: HYDROmorphone 0.5 mg/0.5 mL iSecure Syringe IVPUSH PRN ×3 (01:08→09:06)
[2017-08-17] MEDS: 0.9% Sodium Chloride 1,000 ML IV SCH ×3 (01:09→20:35)
[2017-08-17 05:12] LABS: Mean Corpuscular Hemoglobin 24.7 pg (27.0-35.0); Mean Corpuscular Volume 85.1 fL (81-100)
[2017-08-17 06:19] VITALS: BP 145/74; PULSE 81; RESP 16; O2SAT 100
--- NOTE | 2017-08-17 07:31 | NUR ---
Activity Orders for pt to be moved from Clinatron bed to Bariatric low airloss bed to meet transfer criteria. Pt refused to change to new bed over night, day RN aware. Pt receiving PO Oxy, IV Dilaudid for c/o pain 5 to 6 out of 10. Pt also requested PO Ativan x 1 HS to help with sleep. Pt using call light appropriately.
[2017-08-17] MEDS: Insulin LISPRO 300 Unit/3 mL Inj SUBQ SCH ×4 (08:00→21:25)
[2017-08-17] MEDS: Mupirocin 2% 22 Gm Ointment NASAL SCH ×2 (08:43→20:17)
[2017-08-17] MEDS: Polyethylene Glycol (PEG) 17 Gm Powder PO SCH (08:43)
--- NOTE | 2017-08-17 10:23 | NUR ---
AM Meds Pt refuses morning medications until later. She states that she cant sit up in this bed so she doesn't want to take her medications until we can get her up to the chair or in a different bed. Plan to get pt up to chair and then to low air loss bed.
--- NOTE | 2017-08-17 10:51 | PCM.PNMED ---
Subjective Date of Service Aug 17, 2017 Subjective Patient is in bed, c/o generalized weakness, chronic pain. Exam Vital Signs Vital Sign - Last Date Time Temp Pulse Resp B/P Pulse Ox O2 Delivery O2 Flow Rate FiO2 08/17/17 06:19 36.7 81 16 145/74 100 Room Air Intake and Output 08/16/17 08/16/17 08/17/17 Cumulative From/Thru 15:00 23:00 07:00 08/07/17 10:18 - 08/17/17 06:40 Intake Total 2400 ml 2336 ml 18092 ml Output Total 1550 ml 2350 ml 41925 ml Balance 850 ml -14 ml 5667 ml Intake Oral 1340 ml 1200 ml 11897 ml IV Total 1060 ml 1136 ml 86678 ml Output Urine Total 1550 ml 2350 ml 83327 ml Stool Total 2601 ml Estimated Blood Loss 55 ml # Bowel Movements 1 Exam GENERAL: Alert, obese, in bed HEAD: atraumatic, normocephalic EYES: EOMI, anicteric SKIN: Multiple wounds and unstageable pressure ulcers on the buttocks present on admission EAR, NOSE, MOUTH, THROAT: Lips, oral mucosa, tongue are moist, pink, no lesions. NECK: supple ROM normal. RESPIRATORY: Lungs clear to auscultation. CARDIAC: normal S1 and S2; no rubs, regular rhythm ABDOMEN: Abdomen soft, non-tender. BS normal. MUSCULOSKELETAL: ROM full, muscles are not tender EXTREMITIES: +1-2 pitting edema in LE NEURO: Alert, oriented X 3, Cranial nerves II-XII intact, lower paraplegia present PULSES: 2+ radial, 2+ carotid REVIEW OF SYSTEMS: GENERAL: +++ malaise, no fevers., SEE HPI HEENT: Negative for frequent or significant headaches All other reviewed and negative other than HPI IVs and Medications Medications Reviewed: Medications were reviewed in detail Lab and Diagnostics Result Diagram: 08/17/17 0501 08/17/17 0501 Assessment & Plan 62 y/o female patient with past medical history of T12 paraplegia for many decades, hyperthyroidism, hypertension, type II diabetes, neurogenic bladder with suprapubic catheter, s/p colostomy, and history of frequent UTIs, history of decubitus ulcer was sent from wound care clinic by Dr Hamlin for debridement. Patient was diagnosed with infected decubitus ulcers with suspected osteomyelitis. The patient underwent I&D 9/21/17, 08/12/17 with wound vac placement. She finished course of treatment with vancomycin and daptomycin. Plan is to d/c her to facility and to continue wound care. Infected decubitus ulcer, cellulitis, s/p I&D 08/08/17, 08/12/17 with wound vac placement. Osteomyelitis was ruled out. - stable, improving - wbc 18.2,ESR 65,Hb 10.8,plt 643,Cr 1.88( baseline 1.4),procal 0.26 - ID following - surgery following - patient finished Meropenem/Daptomycin . Plan - c/w Wound care - placement UTI - Stable -UA with pyuria , Urine culture - pansensitive PSEUDOMONAS AERUGINOSA - patient finished meropenem Acute kidney injury on CKD stage 2 - stable Plan - c/w IVF - monitor kidney function Type II diabetes - stable - ISS, HGP, Accucheck AC HS, DM diet. HTN - BP stable, - hold Coreg for now Hypothyroidism - stable - continue home dose levothyroxine Osteoporosis - stable - continue home alendronate every Saturday GERD - stable - continue home dose omeprazole Depression - stable - continue home med Bupropion T12 paraplegia with ostomy -paraplegic care with frequent turning Chronic pain - home dose Duloxetine and scheduled Oxycontine continued Chronic constipation - stable Obesity, BMI 37.3 - With sacral ulcers and increased BMI, will require specialized bed DVT PROPHYLAXIS: Lovenox Code status: Patient would like to be full code Disposition: discharge in 2-3 days after patient improves. Plan of care discussed with treatment team; Labs, radiology tests reviewed. Plan of care, available alternatives were discussed and reviewed with patient. All questions answered. Patient verbalized understanding, approved and agreed to plan of care. VTE Mechanical Devices: Intermittant Pneumatic CD Resuscitation Status: CPR: Attempt Resuscitation Tom Franklin MD Aug 17, 2017 10:51
[2017-08-17] MEDS ORDERED: oxyCODONE ER 10 mg ER12 Tablet PO SCH ×2 (11:05→21:00)
[2017-08-17] MEDS: buPROPion SR 150 mg ER12 Tablet PO SCH ×2 (11:33→20:09)
--- NOTE | 2017-08-17 16:08 | NUR ---
Social Work: Continued Discharge Planning/Multidisciplinary Rounds LATE ENTRY - FROM 08/17 at 1624: D: EMR reviewed. Pt is on day 9 (day 10 as of 08/17) of hospitalization. Pt discussed in multidisciplinary rounds and is medically stable for discharge pending [facility] requirement for bed trial prior to pt's return. Per Finance Broker, Kita, computer artist at [facility] stated pt has a hx of multiple refusals when low-air mattress suggested. Per Kita, [facility] would like be to do in-hospital trial on low air mattress prior to accepting pt back to [facility]. Per Pile [employer], the earliest [facility] would be able to accept pt back, pending outcome of bed trial at hospital, would be 08/19. SW will continue to follow and follow-up with [facility] regarding pt's return on 08/19. A: Pt who resides at [facility] and is pending in-hospital bed trial prior to being accepted back. P: SW to follow-up with [facility] on 08/19 regarding bed trial and if [facility] is able to accept pt back. SW updated pt - pt agreeable. SW will continue to follow. JUNITO Montoya
--- NOTE | 2017-08-17 17:09 | NUR ---
Chair / Bed change Pt up to chair for lunch. lift used and pt placed in personal WC for several hrs over lunch time. Pt then requested to get back in bed stating that this is the most tired and sick she has felt so far. Colostomy in place with no output noted at this time. Suprapubic catheter in place and clean, connected to rojas drainage bag draining to gravity. Wound vac in place and continues. left side [place] drain in place with little Serous drainage noted. Tissues appear to be nice pink and healing. Low air loss P500 bed changed into room for pt to be on until discharge. Care continues
[2017-08-17] MEDS: LORazepam 0.5 mg Tablet PO PRN (17:24)
[2017-08-17] MEDS: Lactulose 20 Gm/30 mL 30 mL Syrup PO PRN (18:23)
[2017-08-17] MEDS: DULoxetine 30 mg DR Capsule PO SCH (20:08)
[2017-08-17 22:16] VITALS: BP 122/72; PULSE 86; RESP 20; O2SAT 100
--- NOTE | 2017-08-17 22:38 | NUR ---
Charting See paper charting starting @ 0000 08/18/17. [employer] transition.
--- NOTE | 2017-08-17 23:38 | NUR ---
Pain/Constipation Pt c/o pain levels of 6 out of 10 to buttocks. Wound vac dressing C/D/I, minimal to moderate sanguineous drainage. Q2H turns to pt comfort. Receiving scheduled OxyContin and PRN Oxy for pain management. Pt c/o constipation/bloating. Bowel tones present/hypo, abdomen soft, round; no output to colostomy so far this shift. PRN Mylicon given. Continue with scheduled/PRN bowel medications and monitoring of colostomy/abdomen.
[2017-08-17 23:49] VITALS: BP 125/76; PULSE 86; RESP 18; O2SAT 98
== END 2017-08-18 01:31 | disposition admitted as inpatient to this hospital (09) | DRG 593 ==
LOC: SED 10:16 → OSC 11:18
PROVIDERS: ADMIT Internal Medicine; ATTEND Internal Medicine
DX: L89.130 Pressure ulcer of right lower back, unstageable (principal); G82.20 Paraplegia, unspecified; T83.511A Infection and inflammatory reaction due to indwelling urethral catheter, initial encounter; N17.9 Acute kidney failure, unspecified